=== PATIENT | male | born 1955 | race Caucasian/White ===

== ENCOUNTER 2019-07-08 14:24 | Emergency (ER) | payer SELFPAY ==
[2019-07-08 14:59] LABS: Absolute Lymphocytes (CBC) 1.7 K/uL (0.7-4.9); Basophils % 0.5 % (0-1.3); Hematocrit 34.1 % (39.6-49.0); Lymphocytes % 10.4 % (15.3-44.8); MPV 7.5 fL (7.6-11.3)
[2019-07-08 15:23] LABS: ALT/SGPT 53 U/L (12-78); AST/SGOT 141 U/L (15-37); Albumin 2.5 g/dL (3.4-5.0); Alkaline Phosphatase 218 U/L (45-117); BUN Blood Urea Nitrogen 9 mg/dL (7-18); Bicarbonate 23 mmol/L (21-32); Bilirubin Direct 1.5 mg/dL (0-0.2); Bilirubin Total 2.5 mg/dL (0.2-1.0); Glucose Level 99 mg/dL (74-106); Lipase 309 U/L (73-393); Potassium 3.6 mmol/L (3.5-5.1); Protein, Total 6.5 g/dL (6.4-8.2); Sodium Level 135 mmol/L (136-145)
[2019-07-08 15:25] LABS: Blood Morphology Comment NOT SEEN (NOT SEEN); Platelet Estimate ADEQ; Poikilocytosis 1+; Urine White Blood Cell Casts OK
--- NOTE | 2019-07-08 15:48 | RAD REPORT ---
EXAM DESCRIPTION: CTAbdomen Pelvis W Contrast - 07/08/2019 3:37 pm CLINICAL HISTORY: Abdominal pain. Diarrhea;Distention COMPARISON: No comparisons TECHNIQUE: Biphasic CT imaging of the abdomen and pelvis was performed with 100 ml non-ionic IV cont rast. All CT scans are performed using dose optimization technique as appropriate and may include automated exposure control or mA/KV adjustment according to patient size. FINDINGS: Small hiatal hernia.Linear atelectasis in both posterior lung bases. Diffuse fatty liver infiltration is seen with a diffusely heterogenous appearance to the liver parenc hyma. The low-density areas are seen throughout the liver parenchyma. No biliary dilatation evident. Mild ascites. The spleen, pancreas, adrenal glands kidneys are within normal limits. No bowel obstruction, free air or abscess. The appendix is normal. No evidence of significant lymph adenopathy. No suspicious bony findings. IMPRESSION: Diffuse fatty liver is present with a heterogenous appearance to the liver parenchyma wi th poorly defined low-density areas noted. Recommend nonemergent followup assessment of the liver wit h MRI liver protocol. Mild ascites.
[2019-07-08] MEDS ORDERED: NA CHLORIDE 0.9% 1,000 ML ONE ×2 (16:14→17:17)
--- NOTE | 2019-07-08 18:19 | ER ---
Nurse's Notes [facility] Name: Papa Del Castillo Age: 64 yrs Sex: Male : 1955 Arrival Date: 07/08/2019 Time: 14:28 Bed 26 Private MD: Diagnosis: Diarrhea, unspecified;Ascites;Fatty (change of) liver, not elsewhere classified Presentation: 07/08 14:31 Presenting complaint: Patient states: c/o diarrhea three to four weeks off and on with vc abdominal bloating. Transition of care: patient was not received from another setting of care. Onset of symptoms was June 07, 2019. Risk Assessment: Do you want to hurt yourself or someone else? Patient reports no desire to harm self or others. Initial Sepsis Screen: Does the patient meet any 2 criteria? No. Patient's initial sepsis screen is negative. Does the patient have a suspected source of infection? No. Patient's initial sepsis screen is negative. Care prior to arrival: None. 14:31 Method Of Arrival: Ambulatory vc 14:31 Acuity: FINA 3 vc Historical: - Allergies: 14:34 PENICILLINS; vc - Home Meds: 14:40 Unknown Appetite stimulant/antidepressant [Active]; aa5 - PMHx: 14:40 None; aa5 - PSHx: 14:40 None; aa5 - Immunization history:: Adult Immunizations up to date, Last tetanus immunization: up to date Pneumococcal vaccine is not up to date, Flu vaccine is up to date. - Social history:: Smoking status: Patient/guardian denies using tobacco. - Ebola Screening: : No symptoms or risks identified at this time. Screenin:09 Abuse screen: Denies threats or abuse. Denies injuries from another. Nutritional mg2 screening: No deficits noted. Tuberculosis screening: No symptoms or risk factors identified. Fall Risk IV access (20 points). Assessment: 15:07 General: Appears in no apparent distress. comfortable, Behavior is calm, cooperative. mg2 Pain: Complains of pain in abdomen Pain does not radiate. Pain currently is 1 out of 10 on a pain scale. Quality of pain is described as aching, Pain began gradually, 3-4 weeks ago. Neuro: Level of Consciousness is awake, alert, obeys commands, Oriented to person, place, time, situation. Cardiovascular: Capillary refill < 3 seconds Patient's skin is warm and dry. Respiratory: Airway is patent Respiratory effort is even, unlabored, Respiratory pattern is regular, symmetrical. GI: Abdomen is round distended, Bowel sounds present X 4 quads. Abd is soft Abd is non tender. GI: Reports diarrhea. : No signs and/or symptoms were reported regarding the genitourinary system. EENT: No signs and/or symptoms were reported regarding the EENT system. Derm: Skin is intact, is healthy with good turgor, Skin is pale. Musculoskeletal: Circulation, motion, and sensation intact. Capillary refill < 3 seconds. 16:52 Reassessment: Patient appears in no apparent distress at this time. Patient and/or mg2 family updated on plan of care and expected duration. Pain level reassessed. Patient is alert, oriented x 3, equal unlabored respirations, skin warm/dry/pink. 17:37 Reassessment: Patient appears in no apparent distress at this time. Patient is alert, mg2 oriented x 3, equal unlabored respirations, skin warm/dry/pink. 17:57 Reassessment: patient up for dc after completing iv fluid. mg2 Vital Signs: 14:36 BP 132 / 86; Pulse 115; Resp 18; Temp 98.5(TE); Pulse Ox 100% on R/A; Weight 63.5 kg; vc Height 5 ft. 10 in. (177.80 cm); Pain 0/10; 16:52 BP 145 / 79; Pulse 109; Resp 18; Pulse Ox 99% on R/A; mg2 17:37 BP 137 / 89; Pulse 110; Resp 18; Pulse Ox 100% on R/A; mg2 18:17 BP 132 / 76; Pulse 108; Resp 18; Temp 98; Pulse Ox 100% on R/A; Pain 0/10; mg2 14:36 Body Mass Index 20.09 (63.50 kg, 177.80 cm) vc ED Course: 14:28 Patient arrived in ED. mr 14:30 Arm band placed on. aa5 14:33 Triage completed. vc 14:58 Luis Santiago NP is PHCP. pm1 14:58 Nhan Gilbert MD is Attending Physician. pm1 15:04 Sridhar Medrano RN is Primary Nurse. mg2 15:10 Patient has correct armband on for positive identification. Pulse ox on. NIBP on. Door mg2 closed. 15:10 No provider procedures requiring assistance completed. Inserted saline lock: 20 gauge mg2 in right forearm, using aseptic technique. Blood collected. 15:11 Radiology exam delayed due to lab results not completed at this time. (BUN/Creatinine). vm2 15:22 Radiology exam delayed due to lab results not completed at this time. (BUN/Creatinine). 2 15:38 CT Abd/Pelvis - IV Contrast Only In Process Unspecified. EDMS 15:39 CT completed. Patient tolerated procedure well. Patient moved back from CT. vm2 17:29 Stool sample collected. jp3 17:30 Stool Culture Sent. jp3 17:30 Ova And Parasites Sent. jp3 17:30 Fecal Leukocyte Stain Sent. jp3 18:17 IV discontinued, intact, bleeding controlled, No redness/swelling at site. Pressure mg2 dressing applied. Administered Medications: 16:11 Drug: NS 0.9% 1000 ml Route: IV; Rate: 1000 ml; Site: right forearm; mg2 17:25 Follow up: Response: No adverse reaction; IV Status: Completed infusion; IV Intake: mg2 1000ml 17:25 Drug: NS 0.9% 1000 ml Route: IV; Rate: 1000 ml; Site: right forearm; mg2 18:16 Follow up: Response: No adverse reaction; IV Status: Completed infusion; IV Intake: mg2 1000ml Intake: 17:25 IV: 1000ml; Total: 1000ml. mg2 18:16 IV: 1000ml; Total: 2000ml. mg2 Outcome: 17:56 Discharge ordered by MD. pm1 18:17 Discharged to home ambulatory. mg2 18:17 Condition: stable 18:17 Discharge instructions given to patient, Instructed on discharge instructions, follow up and referral plans. Demonstrated understanding of instructions, follow-up care. 18:18 Patient left the ED. mg2 Signatures: Dispatcher [employer] EDMA Kim Davis ReynosoKaren shah RN RN aa5 Luis Santiago, PORTFOLIO ASSISTANT PORTFOLIO ASSISTANT pm1 Crystal Armstrong 2 Sridhar Medrano RN RN mg2 Pierre Hernandez jp3 Fabiola Urban RN RN vc
--- NOTE | 2019-07-08 18:20 | EDPHYS ---
Physician Documentation [facility] Name: Papa Del Castillo Age: 64 yrs Sex: Male : 1955 Arrival Date: 07/08/2019 Time: 14:28 Bed 26 Private MD: ED Physician Nhan Gilbert HPI: 07/08 15:04 This 64 yrs old Male presents to ER via Ambulatory with complaints of pm1 Abdominal Bloating and Diarrhea. 15:04 The patient presents with Abdominal bloating and on and off diarrhea for the past 4 pm1 weeks. Associated signs and symptoms: Pertinent positives: diarrhea, Pertinent negatives: nausea and vomiting, blood in stools, chest pain, dysuria, fever, shortness of breath. Modifying factors: The symptoms are alleviated by nothing, the symptoms are aggravated by nothing. Severity of pain: in the emergency department the pain is a 0 / 10. The patient has not recently seen a physician. Historical: - Allergies: 14:34 PENICILLINS; vc - Home Meds: 14:40 Unknown Appetite stimulant/antidepressant [Active]; aa5 - PMHx: 14:40 None; aa5 - PSHx: 14:40 None; aa5 - Immunization history:: Adult Immunizations up to date, Last tetanus immunization: up to date Pneumococcal vaccine is not up to date, Flu vaccine is up to date. - Social history:: Smoking status: Patient/guardian denies using tobacco. - Ebola Screening: : No symptoms or risks identified at this time. ROS: 15:04 Constitutional: Negative for fever, chills, and weight loss, Eyes: Negative for injury, pm1 pain, redness, and discharge, ENT: Negative for injury, pain, and discharge, Neck: Negative for injury, pain, and swelling, Cardiovascular: Negative for chest pain, palpitations, and edema, Respiratory: Negative for shortness of breath, cough, wheezing, and pleuritic chest pain. 15:04 Back: Negative for injury and pain, : Negative for injury, bleeding, discharge, and swelling, MS/Extremity: Negative for injury and deformity, Skin: Negative for injury, rash, and discoloration, Neuro: Negative for headache, weakness, numbness, tingling, and seizure. 15:04 Abdomen/GI: Positive for diarrhea, Negative for abdominal pain, nausea and vomiting, constipation, rectal pain, rectal bleeding. Exam: 15:04 Constitutional: This is a well developed, well nourished patient who is awake, alert, pm1 and in no acute distress. Head/Face: Normocephalic, atraumatic. Neck: Trachea midline, no thyromegaly or masses palpated, and no cervical lymphadenopathy. Supple, full range of motion without nuchal rigidity, or vertebral point tenderness. No Meningismus. Chest/axilla: Normal chest wall appearance and motion. Nontender with no deformity. No lesions are appreciated. Cardiovascular: Regular rate and rhythm with a normal S1 and S2. No gallops, murmurs, or rubs. Normal PMI, no JVD. No pulse deficits. Respiratory: Lungs have equal breath sounds bilaterally, clear to auscultation and percussion. No rales, rhonchi or wheezes noted. No increased work of breathing, no retractions or nasal flaring. 15:04 Back: No spinal tenderness. No costovertebral tenderness. Full range of motion. Skin: Warm, dry with normal turgor. Normal color with no rashes, no lesions, and no evidence of cellulitis. MS/ Extremity: Pulses equal, no cyanosis. Neurovascular intact. Full, normal range of motion. 15:04 Abdomen/GI: Inspection: distension, that is mild, Bowel sounds: normal, Palpation: abdomen is soft and non-tender, in all quadrants, mass, is not appreciated, rebound tenderness, is not appreciated. 15:04 Neuro: Orientation: is normal, Motor: is normal, moves all fours, Gait: is steady, at a normal pace, without difficulty. Vital Signs: 14:36 BP 132 / 86; Pulse 115; Resp 18; Temp 98.5(TE); Pulse Ox 100% on R/A; Weight 63.5 kg; vc Height 5 ft. 10 in. (177.80 cm); Pain 0/10; 16:52 BP 145 / 79; Pulse 109; Resp 18; Pulse Ox 99% on R/A; mg2 17:37 BP 137 / 89; Pulse 110; Resp 18; Pulse Ox 100% on R/A; mg2 18:17 BP 132 / 76; Pulse 108; Resp 18; Temp 98; Pulse Ox 100% on R/A; Pain 0/10; mg2 14:36 Body Mass Index 20.09 (63.50 kg, 177.80 cm) vc MDM: 14:58 Patient medically screened. pm1 17:41 Counseling: I had a detailed discussion with the patient and/or guardian regarding: the pm1 historical points, exam findings, and any diagnostic results supporting the discharge/admit diagnosis, lab results, radiology results, the need for outpatient follow up, a research program coordinator. 17:41 Special discussion: Based on the patient's Hx, exam, and Dx evaluation, there is no pm1 indication for emergent surgery or inpatient Tx. It is understood by the patient/guardian that if the Sx's persist or worsen they need to return immediately for re-evaluation. 17:41 Special discussion: Alcohol cessation due to laboratory findings and CT results: fatty pm1 liver and ascites. 17:41 ED course: Pending stool cultures, patient provided stool sample. Likely viral pm1 diarrhea. Will not provide antibiotic therapy until culture results reported. Recommended OTC probiotics to the patient. 17:44 Data reviewed: vital signs. Data interpreted: Pulse oximetry: on room air is 100 %. pm1 Interpretation: normal. 07/08 14:40 Order name: Basic Metabolic Panel; Complete Time: 15:58 mg2 07/08 14:40 Order name: CBC with Diff; Complete Time: 15:58 mg2 07/08 14:40 Order name: Creatinine for Radiology; Complete Time: 15:58 mg2 07/08 14:40 Order name: Hepatic Function; Complete Time: 15:58 mg2 07/08 14:40 Order name: Lipase; Complete Time: 15:58 mg2 07/08 15:04 Order name: CBC Smear Scan; Complete Time: 15:58 EDMS 07/08 14:40 Order name: IV Saline Lock; Complete Time: 15:06 mg2 07/08 14:40 Order name: Labs collected and sent; Complete Time: 15:06 mg2 07/08 15:07 Order name: CT Abd/Pelvis - IV Contrast Only; Complete Time: 15:58 pm1 07/08 15:07 Order name: Stool Culture pm1 07/08 15:07 Order name: Ova And Parasites pm1 07/08 15:07 Order name: Fecal Leukocyte Stain pm1 Administered Medications: 16:11 Drug: NS 0.9% 1000 ml Route: IV; Rate: 1000 ml; Site: right forearm; mg2 17:25 Follow up: Response: No adverse reaction; IV Status: Completed infusion; IV Intake: mg2 1000ml 17:25 Drug: NS 0.9% 1000 ml Route: IV; Rate: 1000 ml; Site: right forearm; mg2 18:16 Follow up: Response: No adverse reaction; IV Status: Completed infusion; IV Intake: mg2 1000ml Disposition: 07/09 07:23 Co-signature as Attending Physician, Nhan Gilbert MD. rn Disposition: 07/08/19 17:56 Discharged to Home. Impression: Diarrhea, unspecified, Ascites, Fatty (change of) liver, not elsewhere classified. - Condition is Stable. - Discharge Instructions: Ascites, Food Choices to Help Relieve Diarrhea, Adult, Diarrhea, Adult, Fatty Liver Disease Diet, Pediatric. - Medication Reconciliation Form, Thank You Letter, Antibiotic Education, Prescription Opioid Use form. - Follow up: Emergency Department; When: As needed; Reason: Worsening of condition. Follow up: Private Physician; When: 2 - 3 days; Reason: Recheck today's complaints, Continuance of care, Re-evaluation by your physician. - Problem is new. - Symptoms have improved. Signatures: Dispatcher [employer] EDNhan Holcomb MD MD rn Calderon, Audri, RN RN aa5 Luis Santiago CARNALLITE PLANT OPERATOR CARNALLITE PLANT OPERATOR pm1 Sridhar Medrano RN RN mg2 Fabiola Urban RN RN vc Corrections: (The following items were deleted from the chart) 07/08 18:18 17:56 07/08/2019 17:56 Discharged to Home. Impression: Diarrhea, unspecified; Ascites; mg2 Fatty (change of) liver, not elsewhere classified. Condition is Stable. Forms are Medication Reconciliation Form, Thank You Letter, Antibiotic Education, Prescription Opioid Use. Follow up: Emergency Department; When: As needed; Reason: Worsening of condition. Follow up: Private Physician; When: 2 - 3 days; Reason: Recheck today's complaints, Continuance of care, Re-evaluation by your physician. Problem is new. Symptoms have improved. pm1
[2019-07-08 22:57] VITALS: O2SAT 100
[2019-07-08 22:58] VITALS: BP 132/76; TEMP 98
== END 2019-07-08 18:18 | disposition home or self-care (01) ==
LOC: ER 14:24
DX: R18.8 Other ascites (principal); K76.0 Fatty (change of) liver, not elsewhere classified; Z88.0 Allergy status to penicillin
CPT/HCPCS: 36415; 74177; 80048; 80076; 83690; 85025; 87045; 87046; 87177; 87209; 89055; 96360; 96361; 99284; J7030; Q9967

== ENCOUNTER 2019-07-23 16:49 | Inpatient (IN) | payer SELFPAY ==
[2019-07-23 17:40] LABS: Absolute Lymphocytes (CBC) 1.6 K/uL (0.7-4.9); Basophils % 0.4 % (0-1.3); Hematocrit 38.8 % (39.6-49.0); Lymphocytes % 7.7 % (15.3-44.8); MPV 7.3 fL (7.6-11.3); RBC Red Blood Cell Count 3.68 M/uL (4.33-5.43)
[2019-07-23 17:42] LABS: Protime INR 1.52
--- NOTE | 2019-07-23 17:58 | RAD REPORT ---
EXAM DESCRIPTION: RAD - Chest Single View - 07/23/2019 5:27 pm CLINICAL HISTORY: Abdominal distention, shortness of breath, dyspnea COMPARISON: CT study July 08 TECHNIQUE: AP portable chest image was obtained 1721 hours . FINDINGS: Lung volumes are low. No peripheral mass or consolidation. Lung base atelectasis is presen t with small bilateral pleural effusions. Heart and vasculature are normal. No pneumothorax. No acute bony abnormality seen. No acute aortic findings suspected. IMPRESSION: Bilateral lung base pleural effusions and atelectasis.
[2019-07-23] MEDS ORDERED: CEFEPIME/SWI 2gm 2 GM/20 ML SYR IVP ONE (18:00)
[2019-07-23 18:04] LABS: ALT/SGPT 49 U/L (12-78); AST/SGOT 143 U/L (15-37); Albumin 2.3 g/dL (3.4-5.0); Alkaline Phosphatase 206 U/L (45-117); BUN Blood Urea Nitrogen 8 mg/dL (7-18); Bicarbonate 26 mmol/L (21-32); Bilirubin Direct 2.3 mg/dL (0-0.2); Bilirubin Total 3.6 mg/dL (0.2-1.0); Glucose Level 118 mg/dL (74-106); Lipase 251 U/L (73-393); Magnesium 2.3 mg/dL (1.8-2.4); NT PRO-BNP 216 pg/mL (<125); Potassium 4.5 mmol/L (3.5-5.1); Protein, Total 6.5 g/dL (6.4-8.2); Sodium Level 133 mmol/L (136-145); Troponin (Emerg Dept Use Only) < 0.02 ng/mL (0.0-0.045)
[2019-07-23 18:10] LABS: Anisocytosis 1+; Blood Morphology Comment NOTED (NOT SEEN); Platelet Estimate ADEQ; Poikilocytosis 1+; Urine White Blood Cell Casts OK
[2019-07-23] MEDS ORDERED: FENTANYL CITR 100 MCG/2 ML ONE (18:28)
--- NOTE | 2019-07-23 18:59 | RAD REPORT ---
EXAM DESCRIPTION: CT - Abdomen Pelvis W Contrast - 07/23/2019 6:29 pm CLINICAL HISTORY: Abd pain;Abdominal distention COMPARISON: CT study July TECHNIQUE: Biphasic, helical CT imaging of the abdomen and pelvis was performed following 100 ml non -ionic IV contrast. No oral contrast given. All CT scans are performed using dose optimization technique as appropriate and may include automated exposure control or mA/KV adjustment according to patient size. FINDINGS: Small to moderate bilateral pleural effusions are present only partially imaged. Partial a telectasis present in each lower lobe. No pericardial thickening or effusion. Nodularity of the liver capsule is present. No focal liver lesion identifiable. There is some heterog eneity to the liver parenchymal enhancement pattern. This is not as pronounced is seen on the Dece study. No portal thrombus. Spleen is normal size. No pancreatic or peripancreatic abnormality. No acute gallbladder or biliary tree finding. Symmetric renal function is seen with no hydronephrosis or suspicious renal mass. No pyelonephritis o r acute parenchymal process. No bladder abnormalities. No adrenal abnormalities. No dilated bowel loops or bowel wall thickening. Small hiatal hernia present. Diverticulosis is prese nt without diverticulitis. No free air or pneumatosis. Large volume of ascites present. Volume has i ncreased since the July 08 imaging. No omental thickening. No suspicious bony findings. IMPRESSION: Cirrhosis or other diffuse hepatic parenchymal disease is evident. Enhancement is somew hat heterogeneous but not as pronounced as seen previously. No definitive focal lesion. Large volume of ascites increased from July 08 imaging. Small to moderate bilateral pleural effusions only partially imaged. Partial atelectasis present in e ach lower lobe. Pleural fluid is new from July 08. No acute GI or finding.
--- NOTE | 2019-07-23 19:31 | ER ---
Nurse's Notes [facility] Name: Papa Del Castillo Age: 64 yrs Sex: Male : 1955 Arrival Date: 07/23/2019 Time: 16:51 Bed 24 Private MD: Diagnosis: Alcoholic cirrhosis of liver;Pleural effusion in other conditions classified elsewhere;Elevated white blood cell count;Ascites Presentation: 07/23 17:03 Acuity: FINA 3 ss 17:03 Presenting complaint: Patient states: was seen here several weeks ago for ABD swelling em but reports it has got much worse, denies N/V/D or fever, reports shortness of breath, distended ABD noted. Transition of care: patient was not received from another setting of care. Onset of symptoms was July 23, 2019. Risk Assessment: Do you want to hurt yourself or someone else? Patient reports no desire to harm self or others. Initial Sepsis Screen: Does the patient meet any 2 criteria? HR > 90 bpm. No. Patient's initial sepsis screen is negative. Does the patient have a suspected source of infection? No. Patient's initial sepsis screen is negative. Care prior to arrival: None. 17:03 Method Of Arrival: Ambulatory em Historical: - Allergies: 17:06 PENICILLINS; em - Home Meds: 17:06 Unknown Appetite stimulant/antidepressant [Active]; em - PMHx: 17:06 fatty liver; em - PSHx: 17:06 None; em - Immunization history:: Adult Immunizations up to date. - Social history:: Smoking status: Patient/guardian denies using tobacco. - Ebola Screening: : Patient negative for fever greater than or equal to 101.5 degrees Fahrenheit, and additional compatible Ebola Virus Disease symptoms Patient denies exposure to infectious person Patient denies travel to an Ebola-affected area in the 21 days before illness onset No symptoms or risks identified at this time. Screenin:07 Abuse screen: Denies threats or abuse. Nutritional screening: No deficits noted. em Tuberculosis screening: No symptoms or risk factors identified. Fall Risk None identified. Assessment: 17:06 General: Appears in no apparent distress. uncomfortable, ill, malnourished. Pain: em Complains of pain in left lower quadrant Pain currently is 10 out of 10 on a pain scale. Pain began 2 weeks ago. Neuro: Level of Consciousness is awake, alert, obeys commands, Oriented to person, place, time, situation, Appropriate for age. Cardiovascular: Denies chest pain, vomiting, Capillary refill < 3 seconds. Respiratory: Reports shortness of breath at rest Airway is patent Respiratory effort is even, unlabored, Respiratory pattern is regular, symmetrical. GI: Abdomen is distended, noted to have ascites, Bowel sounds present X 4 quads. Abd is rigid X 4 quads. Patient currently denies diarrhea, nausea, vomiting. EENT: Sclera/Cornea mild jaundice noted. Derm: Skin is intact, Skin is dry, Skin is pale, Skin temperature is warm. Musculoskeletal: Capillary refill < 3 seconds, Range of motion: intact in all extremities. 17:15 General: The previous assessment is accurate, call light remains within reach.. ss 18:20 Reassessment: Patient appears in no apparent distress at this time. Patient and/or em family updated on plan of care and expected duration. Pain level reassessed. request something for pain, rates pain 10/10. 19:07 Reassessment: Patient appears in no apparent distress at this time. Patient and/or em family updated on plan of care and expected duration. Pain level reassessed. Patient is alert, oriented x 3, equal unlabored respirations, skin warm/dry/pink. rates pain 2/10. 19:15 General: Appears in no apparent distress. Pain: Denies pain. Neuro: Level of ea Consciousness is awake, alert, obeys commands, Oriented to person, place, time, situation. Cardiovascular: Patient's skin is warm and dry. Respiratory: Airway is patent Respiratory effort is even, unlabored, Respiratory pattern is regular, symmetrical. GI: Abdomen is distended, noted to have ascites. Derm: Skin is intact, Skin is dry, Skin is pale, Skin temperature is warm. Musculoskeletal: Circulation, motion, and sensation intact. 20:30 Reassessment: Patient and/or family updated on plan of care and expected duration. Pain ea level reassessed. Respirations even and unlabored, chest expansions even and unlabored. Pt denies pain at this time. 21:26 Reassessment: Patient and/or family updated on plan of care and expected duration. Pain ea level reassessed. Report called to receiving nurse on second floor. 21:47 Reassessment: Patient and/or family updated on plan of care and expected duration. Pain ea level reassessed. Pt alert and oriented x 3. Respirations even and unlabored. Chest expansions even and symmetrical. No s/s of pain or discomfort at this time. Pt admitted to second floor, left ED via wheelchair per tech, pt tolerating well. Vital Signs: 17:06 BP 142 / 84; Pulse 116; Resp 20; Temp 97.8(O); Pulse Ox 98% on R/A; Weight 63.5 kg; em Height 5 ft. 10 in. (177.80 cm); Pain 10/10; 18:11 BP 127 / 76; Pulse 109; Resp 16; Pulse Ox 98% on R/A; em 19:00 BP 139 / 90; Pulse 108; Resp 19; Pulse Ox 97% on R/A; ea 20:30 BP 129 / 77; Pulse 108; Resp 18; Pulse Ox 96% on R/A; ea 21:30 BP 125 / 88; Pulse 107; Resp 18; Temp 98; Pulse Ox 97% ; ea 17:06 Body Mass Index 20.09 (63.50 kg, 177.80 cm) em ED Course: 16:51 Patient arrived in ED. am2 16:55 Joe Ricardo LVN is Primary Nurse. em 17:03 Triage completed. 17:06 Arm band placed on. em 17:07 Patient has correct armband on for positive identification. Placed in gown. Bed in low em position. Call light in reach. Side rails up X2. Pulse ox on. NIBP on. 17:09 Leonel Roa PA is PHCP. jr8 17:09 Margarito Gupta MD is Attending Physician. jr8 17:18 EKG done, by ED staff, reviewed by Leonel BEARD. em 17:30 Initial lab(s) drawn, by pr, sent to lab. Inserted saline lock: 22 gauge in right em forearm, using aseptic technique. Blood collected. 19:29 Margarito Kaye MD is Hospitalizing Provider. jr8 21:26 No provider procedures requiring assistance completed. Patient admitted, IV remains in ea place. Administered Medications: 18:17 Drug: Cefepime 2 grams Route: IVPB; Rate: 200 ml/hr; Infused Over: 30 mins; Site: right ss forearm; 19:11 Follow up: Response: No adverse reaction; IV Status: Completed infusion em 18:38 Drug: fentaNYL (PF) 50 mcg Route: IVP; Site: right forearm; ss 19:05 Follow up: Response: No adverse reaction; Pain is decreased; RASS: Alert and Calm (0) em Outcome: 19:29 Decision to Hospitalize by Provider. jrJessy 20:00 Instructed on the need for admit. ea 21:40 Admitted to Med/surg accompanied by tech, room 224, with chart, Report called to dyan Escalona RN on second floor 21:40 Condition: stable 21:48 Patient left the ED. ea Signatures: Joe Ricardo, WINDOWS SERVER SPECIALIST WINDOWS SERVER SPECIALIST em Sudha Smith RN RN Leonel Roa PA PA jr8 Jessica Porter Elena RN SUZY zaidi Corrections: (The following items were deleted from the chart) 17:57 17:03 Initial Sepsis Screen: Does the patient meet any 2 criteria? HR > 90 bpm. No. ss Patient's initial sepsis screen is negative. Does the patient have a suspected source of infection? No. Patient's initial sepsis screen is negative. em
--- NOTE | 2019-07-23 19:31 | EDPHYS ---
Physician Documentation [facility] Name: Papa Del Castillo Age: 64 yrs Sex: Male : 1955 Arrival Date: 07/23/2019 Time: 16:51 Bed 24 Private MD: ED Physician Margarito Gupta HPI: 07/23 17:29 This 64 yrs old Male presents to ER via Ambulatory with complaints of jr8 Abdominal Distention, Shortness Of Breath. 17:29 Onset: The symptoms/episode began/occurred gradually, 1 week(s) ago. The symptoms do jr8 not radiate. Associated signs and symptoms: Pertinent positives: shortness of breath. The symptoms are described as dull. Modifying factors: The symptoms are alleviated by nothing, the symptoms are aggravated by nothing. Severity of pain: At its worst the pain was moderate in the emergency department the pain is unchanged. The patient has experienced a previous episode. The patient has not recently seen a physician. 17:49 Patient with longstanding drinking history. Stated that he has been seen in ED once jr8 before for ascites but was d/c'd from ER. Stated that he was not officially diagnosed with cirrhosis of the liver at that time. Stated that it did not look bad enough. Came back today for distension of abdomen with shortness of breath. Historical: - Allergies: 17:06 PENICILLINS; em - Home Meds: 17:06 Unknown Appetite stimulant/antidepressant [Active]; em - PMHx: 17:06 fatty liver; em - PSHx: 17:06 None; em - Immunization history:: Adult Immunizations up to date. - Social history:: Smoking status: Patient/guardian denies using tobacco. - Ebola Screening: : Patient negative for fever greater than or equal to 101.5 degrees Fahrenheit, and additional compatible Ebola Virus Disease symptoms Patient denies exposure to infectious person Patient denies travel to an Ebola-affected area in the 21 days before illness onset No symptoms or risks identified at this time. ROS: 17:49 Eyes: Negative for injury, pain, redness, and discharge, ENT: Negative for injury, jr8 pain, and discharge, Neck: Negative for injury, pain, and swelling, Cardiovascular: Negative for chest pain, palpitations, and edema, Back: Negative for injury and pain, MS/Extremity: Negative for injury and deformity, Skin: Negative for injury, rash, and discoloration, Neuro: Negative for headache, weakness, numbness, tingling, and seizure. 17:49 Respiratory: Positive for shortness of breath. 17:49 Abdomen/GI: Positive for abdominal pain, abdominal distension. Exam: 17:49 Eyes: Pupils equal round and reactive to light, extra-ocular motions intact. Lids and jr8 lashes normal. Conjunctiva and sclera are non-icteric and not injected. Cornea within normal limits. Periorbital areas with no swelling, redness, or edema. ENT: Nares patent. No nasal discharge, no septal abnormalities noted. Tympanic membranes are normal and external auditory canals are clear. Oropharynx with no redness, swelling, or masses, exudates, or evidence of obstruction, uvula midline. Mucous membranes moist. Neck: Trachea midline, no thyromegaly or masses palpated, and no cervical lymphadenopathy. Supple, full range of motion without nuchal rigidity, or vertebral point tenderness. No Meningismus. Respiratory: Lungs have equal breath sounds bilaterally, clear to auscultation and percussion. No rales, rhonchi or wheezes noted. No increased work of breathing, no retractions or nasal flaring. Back: No spinal tenderness. No costovertebral tenderness. Full range of motion. Skin: Warm, dry with normal turgor. Normal color with no rashes, no lesions, and no evidence of cellulitis. MS/ Extremity: Pulses equal, no cyanosis. Neurovascular intact. Full, normal range of motion. Neuro: Awake and alert, GCS 15, oriented to person, place, time, and situation. Cranial nerves II-XII grossly intact. Motor strength 5/5 in all extremities. Sensory grossly intact. Cerebellar exam normal. Normal gait. 17:49 Cardiovascular: Rate: tachycardic, Rhythm: regular, Pulses: Pulses are 2+ in right radial artery and left radial artery. Heart sounds: normal, normal S1and S2, no S3 or S4, no murmur, no rub, no gallop, Edema: 1+ edema to level of left midcalf, left ankle, right midcalf and right ankle, JVD: is not appreciated. 17:49 Abdomen/GI: Inspection: distension, that is moderate, Bowel sounds: active, Palpation: soft, in all quadrants, nontender, in all quadrants. Vital Signs: 17:06 BP 142 / 84; Pulse 116; Resp 20; Temp 97.8(O); Pulse Ox 98% on R/A; Weight 63.5 kg; em Height 5 ft. 10 in. (177.80 cm); Pain 10/10; 18:11 BP 127 / 76; Pulse 109; Resp 16; Pulse Ox 98% on R/A; em 19:00 BP 139 / 90; Pulse 108; Resp 19; Pulse Ox 97% on R/A; ea 20:30 BP 129 / 77; Pulse 108; Resp 18; Pulse Ox 96% on R/A; ea 21:30 BP 125 / 88; Pulse 107; Resp 18; Temp 98; Pulse Ox 97% ; ea 17:06 Body Mass Index 20.09 (63.50 kg, 177.80 cm) em MDM: 17:15 Patient medically screened. [facility] 19:28 Data reviewed: vital signs, nurses notes, lab test result(s), EKG, radiologic studies, [facility] CT scan, plain films. Data interpreted: Pulse oximetry: on room air is 96 %. Interpretation: acceptable. Counseling: I had a detailed discussion with the patient and/or guardian regarding: the historical points, exam findings, and any diagnostic results supporting the discharge/admit diagnosis, lab results, radiology results, the need for further work-up and treatment in the hospital. Physician consultation: Margarito Kaye MD was called at 19:28, was contacted at 19:28, regarding admission, and will see patient. 07/23 17:09 Order name: Basic Metabolic Panel [facility] 07/23 17:09 Order name: CBC with Diff [facility] 07/23 17:09 Order name: LFT's [facility] 07/23 17:09 Order name: Magnesium [facility] 07/23 17:09 Order name: NT PRO-BNP [facility] 07/23 17:09 Order name: PT-INR [facility] 07/23 17:09 Order name: Troponin (emerg Dept Use Only) [facility] 07/23 17:09 Order name: AMMONIA [facility] 07/23 17:09 Order name: Lipase [facility] 07/23 17:45 Order name: Protime (+INR); Complete Time: 17:48 EDMS 07/23 17:46 Order name: CBC with Automated Diff; Complete Time: 18:14 EDMS 07/23 17:48 Order name: Blood Culture Adult (2) [facility] 07/23 17:48 Order name: Procalcitonin [facility] 07/23 17:48 Order name: Lactate [facility] 07/23 17:09 Order name: XRAY Chest (1 view) [facility] 07/23 17:56 Order name: Ammonia; Complete Time: 17:59 EDMS 07/23 18:01 Order name: RAD; Complete Time: 18:05 EDMS 07/23 18:05 Order name: Basic Metabolic Panel; Complete Time: 18:05 EDMS 07/23 18:05 Order name: Liver (Hepatic) Function; Complete Time: 18:05 EDMS 07/23 18:05 Order name: Troponin (Emerg Dept Use Only); Complete Time: 18:05 EDMS 07/23 18:05 Order name: NT PRO-BNP; Complete Time: 18:05 EDMS 07/23 18:05 Order name: Magnesium; Complete Time: 18:05 EDMS 07/23 18:05 Order name: Lipase; Complete Time: 18:05 EDMS 07/23 18:06 Order name: CT Abd/Pelvis - IV Contrast Only [facility] 07/23 18:12 Order name: CBC Smear Scan; Complete Time: 18:14 EDMS 07/23 18:37 Order name: Lactate; Complete Time: 18:43 EDMS 07/23 19:04 Order name: CT; Complete Time: 19:05 EDMS 07/23 19:30 Order name: Procalcitonin; Complete Time: 19:31 EDMS 07/23 17:09 Order name: EKG; Complete Time: 17:10 [facility] 07/23 17:09 Order name: Cardiac monitoring; Complete Time: 17:22 [facility] 07/23 17:09 Order name: EKG - Nurse/Tech; Complete Time: 17:22 [facility] 07/23 17:09 Order name: IV Saline Lock; Complete Time: 17:34 [facility] 07/23 17:09 Order name: Labs collected and sent; Complete Time: 17:34 [facility] 07/23 17:09 Order name: O2 Per Protocol; Complete Time: 17:22 [facility] 07/23 17:09 Order name: O2 Sat Monitoring; Complete Time: 17:22 [facility] Administered Medications: 18:17 Drug: Cefepime 2 grams Route: IVPB; Rate: 200 ml/hr; Infused Over: 30 mins; Site: right ss forearm; 19:11 Follow up: Response: No adverse reaction; IV Status: Completed infusion em 18:38 Drug: fentaNYL (PF) 50 mcg Route: IVP; Site: right forearm; ss 19:05 Follow up: Response: No adverse reaction; Pain is decreased; RASS: Alert and Calm (0) em Disposition: 07/23/19 19:29 Hospitalization ordered by Margarito Kaye for Inpatient Admission. Preliminary diagnosis are Alcoholic cirrhosis of liver, Pleural effusion in other conditions classified elsewhere, Elevated white blood cell count, Ascites. - Bed requested for Telemetry/MedSurg (Inpatient). - Status is Inpatient Admission. ea - Condition is Stable. - Problem is new. - Symptoms are unchanged. UTI on Admission? No Addendum: 07/27/2019 07:10 Co-signature as Attending Physician, Margarito Gupta MD. m a2 Signatures: Dispatcher [employer] EDTN Joe Ricardo, GARMENT SEWING MACHINE OPERATOR GARMENT SEWING MACHINE OPERATOR em Sudha Smith RN RN Leonel Roa PA PA jr8 Nayeli Caal RN RN Margarito Gupta MD MD ma2 Ryan Nesbitt RN RN rv Corrections: (The following items were deleted from the chart) 07/23 20:28 19:29 Hospitalization Ordered by Margarito Kaye MD for Inpatient Admission. Preliminary rv diagnosis is Alcoholic cirrhosis of liver; Pleural effusion in other conditions classified elsewhere; Elevated white blood cell count; Ascites. Bed requested for Telemetry/MedSurg (Inpatient). Status is Inpatient Admission. Condition is Stable. Problem is new. Symptoms are unchanged. UTI on Admission? No. jr8 21:48 20:28 07/23/2019 19:29 Hospitalization Ordered by Margarito Kaye MD for Inpatient ea Admission. Preliminary diagnosis is Alcoholic cirrhosis of liver; Pleural effusion in other conditions classified elsewhere; Elevated white blood cell count; Ascites. Bed requested for Telemetry/MedSurg (Inpatient). Status is Inpatient Admission. Condition is Stable. Problem is new. Symptoms are unchanged. UTI on Admission? No. rv
[2019-07-23] MEDS ORDERED: MAGNESIUM HYDROXIDE 8% 30 ML PO PRN (20:15)
[2019-07-23] MEDS ORDERED: ONDANSETRON 4 MG/2 ML VIAL IV PRN (20:15)
[2019-07-23 22:14] VITALS: O2SAT 95; BMI 21.8
[2019-07-23] MEDS ORDERED: MORPHINE 4 MG/ML SYR IV PRN (22:33)
[2019-07-23 22:58] LABS: Urine Appearance CLEAR; Urine Blood NEGATIVE (NEG); Urine Color DK YELLOW; Urine Glucose NEGATIVE (NEG); Urine Protein TRACE (NEG); Urine Specific Gravity >=1.030 (1.005-1.030); Urine pH 6.5 (5.0-7.0)
[2019-07-23 23:02] LABS: Urine Microscopic Reflex ORDER UMIC
[2019-07-23 23:06] LABS: Urine Bilirubin NEGATIVE (NEG)
[2019-07-24 01:19] LABS: Urine Bacteria <20 /HPF (NONE SEEN); Urine Culture Reflex Order NOT NEEDED; Urine RBC <5 /HPF (NONE SEEN)
[2019-07-24 05:35] LABS: Basophils % 0.6 % (0-1.3); Hematocrit 33.4 % (39.6-49.0); Lymphocytes % 6.5 % (15.3-44.8); MPV 7.2 fL (7.6-11.3); RBC Red Blood Cell Count 3.17 M/uL (4.33-5.43)
[2019-07-24 05:42] LABS: Protime INR 1.57
[2019-07-24 05:52] LABS: ALT/SGPT 44 U/L (12-78); AST/SGOT 120 U/L (15-37); Alkaline Phosphatase 171 U/L (45-117); BUN Blood Urea Nitrogen 8 mg/dL (7-18); Bicarbonate 27 mmol/L (21-32); Bilirubin Total 2.9 mg/dL (0.2-1.0); Glucose Level 111 mg/dL (74-106); Magnesium 2.2 mg/dL (1.8-2.4); Phosphorus 3.4 mg/dL (2.5-4.9); Potassium 4.4 mmol/L (3.5-5.1); Protein, Total 5.4 g/dL (6.4-8.2); Sodium Level 135 mmol/L (136-145)
--- NOTE | 2019-07-24 07:52 | EKG ---
Test Date: 2019-07-23 Test Time: 17:18:23 Woven Paper Hat Mender: SHAHNAZ MEASUREMENT RESULTS: Intervals: Rate: 110 TN: 130 QRSD: 68 QT: 320 QTc: 433 [place]: P: 23 TN: 130 QRS: 0 T: 10 INTERPRETIVE STATEMENTS: Sinus tachycardia Cannot rule out Anterior infarct, age undetermined Low voltage QRS Abnormal ECG No previous ECG available for comparison Electronically Signed On 07-24-19 07:51:47 INFORMATION SECURITY ANALYST by Yossi Diop
--- NOTE | 2019-07-24 08:22 | P.HP ---
Certification for Inpatient Patient admitted to: Inpatient With expected LOS: >2 Midnights Patient will require the following post-hospital care: None Practitioner: I am a practitioner with admitting privileges, knowledge of patient current condition, hospital course, and medical plan of care. Services: Services provided to patient in accordance with Admission requirements found in Title 42 Section 412.3 of the Code of Federal Regulations Patient History Date of Service: 07/24/19 Reason for admission: LARGE AMOUNT OF ASCITES; CIRRHOSIS SECONDARY TO ALCOHOL ABUSE History of Present Illness: Patient is a 64-year-old gentleman who came into the hospital with abdominal distention. He was in the ER in early July with similar complaints. He was told he would need to 2 follow-up as an outpatient with a liver specialist and to stop drinking. He has not had anything to drink since that time. He also has been drinking plenty of water per recommendation from the ER physician. He noted that his abdomen was starting to distended. He was able to take it any more after 2 weeks of abdominal distention so he came into the ER for further evaluation. In the emergency room patient does have a large amount of ascites. He will need a paracentesis. Will send labs to further evaluate the etiology. Patient will be admitted to the hospital for further workup. Allergies Penicillins Allergy (Verified 07/23/19 22:14) Shortness of breath - Past Medical/Surgical History Has patient received pneumonia vaccine in the past: Yes Diabetic: No -: fatty liver -: alcoholic liver cirrhosis Past Surgical History: Patient denies surgical history - Family History Father Family History: Reviewed- Non-Contributory - Social History Smoking Status: Never smoker Alcohol use: No CD- Drugs: No Caffeine use: No Place of Residence: Home Review of Systems 10-point ROS is otherwise unremarkable Physical Examination - Vital Signs Temperature: 97.9 F Blood Pressure: 131/78 Pulse: 104 Respirations: 18 Pulse Ox (%): 96 - Physical Exam General: Alert, In no apparent distress, Oriented x3 HEENT: Atraumatic, PERRLA, Mucous membr. moist/pink, EOMI, Sclerae nonicteric Neck: Supple, 2+ carotid pulse no bruit, No LAD, Without JVD or thyroid abnormality Respiratory: Clear to auscultation bilaterally, Normal air movement Cardiovascular: Regular rate/rhythm, Normal S1 S2 Gastrointestinal: Normal bowel sounds, Soft and benign, No tenderness, No rebound, No guarding, Distended Musculoskeletal: No clubbing, No swelling, No tenderness Integumentary: Tenderness/swelling Neurological: Normal gait, Normal speech, Normal strength at 5/5 x4 extr, Normal tone, Sensation intact, Cranial nerves 3-12 intact, Normal affect Lymphatics: No axilla or inguinal lymphadenopathy - Studies Laboratory Data (last 24 hrs) 07/24/19 05:17: Sodium 135 L, Potassium 4.4, BUN 8, Creatinine 0.45 L, Glucose 111 H, Phosphorus 3.4, Magnesium 2.2, Total Bilirubin 2.9 H, AST 120 H, ALT 44, Alkaline Phosphatase 171 H 07/24/19 05:17: PT 18.2 H, INR 1.57, APTT 34.7 07/24/19 05:17: WBC 15.6 H D, Hgb 11.6 L, Hct 33.4 L, Plt Count 213 D 07/23/19 17:30: PT 17.7 H, INR 1.52 07/23/19 17:30: WBC 20.2 H*, Hgb 13.3 L, Hct 38.8 L, Plt Count 301 07/23/19 17:30: Sodium 133 L, Potassium 4.5, BUN 8, Creatinine 0.57, Glucose 118 H, Magnesium 2.3, Total Bilirubin 3.6 H, AST 143 H, ALT 49, Alkaline Phosphatase 206 H, Lipase 251 Assessment & Plan - Problems (Diagnosis) (1) Ascites due to chronic alcoholic hepatitis Current Visit: Yes Status: Acute (2) Alcoholic liver disease Current Visit: Yes Status: Acute - Plan Plan: 1. Hep-Lock IV 2. Lasix and Aldactone 3. Beta-mohan therapy 4. GI consultation 5. Acute hepatitis profile 6. Check ammonia level 7. Continue to refrain from alcohol use 8. GI and DVT prophylaxis Discharge Plan: Home Plan to discharge in: Greater than 2 days - Advance Directives Does patient have a Living Will: No Does patient have a Durable POA for Healthcare: No - Code Status/Comfort Care Code Status Assessed: Yes Code Status: Full Code Critical Care: No Time Spent Managing PTS Care (In Minutes): 45
--- NOTE | 2019-07-24 10:30 | RAD REPORT ---
EXAM DESCRIPTION: US - Paracentesis Proc Guidance - 07/24/2019 10:01 am CLINICAL HISTORY: large ascites Ascites COMPARISON: No comparisons FINDINGS: Informed consent was obtained and time-out was performed. Patient's abdomen was prepped and draped in the usual sterile fashion. 1% lidocaine was used for loca l anesthetic purposes. A small skin incision was made right lower quadrant. A paracentesis catheter was guided into the [place] cavity under sonographic guidance. A small amount of fluid was sent for requested lab studies. A large volume paracentesis was performed . 5 liters of yellow fluid was obtained. The patient tolerated the procedure well. IMPRESSION: Successful ultrasound-guided paracentesis.
[2019-07-24 12:02] LABS: Appearance CLEAR (CLEAR); Body Fluid Source PERITONEAL; Body Fluid WBC 53 /mm^3; Color of fluid Yellow (COLORLESS)
[2019-07-24] MEDS ORDERED: FUROSEMIDE 40 MG TABLET PO SCH (15:00)
[2019-07-24] MEDS ORDERED: ALBUMIN HUMAN 25% 200 ML IV ONE (15:00)
[2019-07-24 16:25] VITALS: BP 124/66; TEMP 97.8
--- NOTE | 2019-07-24 16:46 | P.SSS ---
Patient History Date of Service: 07/24/19 Reason for admission: LARGE AMOUNT OF ASCITES; CIRRHOSIS SECONDARY TO ALCOHOL ABUSE History of Present Illness: 64-year-old gentleman with a known history of alcoholic liver disease, diagnosed about 3 months ago presents the to the with a complaint of abdominal distention. He has not established care with a new primary care physician. He was in the emergency department about [address] abdomen and pelvis demonstrated fatty liver. Patient abdomen was noted to be quite distended. Repeat CT abdomen and pelvis report heterogeneously liver suggestive of diffuse hepatic disease versus alcohol liver cirrhosis. Patient was then hospitalized for paracentesis and further evaluation. Allergies Penicillins Allergy (Verified 07/23/19 22:14) Shortness of breath Home Medications: Furosemide [Lasix*] 40 mg PO DAILY #30 tab 07/24/19 Mirtazapine [Remeron*] 15 mg PO BEDTIME #30 tab 07/24/19 Spironolactone [Aldactone*] 100 mg PO DAILY #30 tab 07/24/19 - Past Medical/Surgical History Has patient received pneumonia vaccine in the past: Yes Diabetic: No -: fatty liver -: alcoholic liver cirrhosis - Social History Smoking Status: Never smoker Alcohol use: No CD- Drugs: No Caffeine use: No Place of Residence: Home Review of Systems Other: General: No fever, no malaise. Eyes: No eye discharge, Respiratory: No cough, no shortness of breath. CVS: No chest pain, no palpitation, no lightheadedness. GI: No nausea no vomit, no constipation, no diarrhea. Genitourinary: No dysuria, no urinary frequency, no incontinence, no hematuria. Musculoskeletal: No joint pains, or joint swelling, no gait instability. Neurology: No headache, no asymmetric, weakness, no problem with swallowing. Except as documented, all other systems reviewed and negative. Physical Examination - Vital Signs Temperature: 97.8 F Blood Pressure: 124/66 Pulse: 106 Respirations: 18 Pulse Ox (%): 97 - Physical Exam General: Alert, In no apparent distress, Cachectic HEENT: PERRLA, Mucous membr. moist/pink, Sclerae nonicteric Neck: Supple, JVD not distended Respiratory: Clear to auscultation bilaterally, Normal air movement Cardiovascular: No edema, Regular rate/rhythm, Normal S1 S2 Gastrointestinal: Normal bowel sounds, Soft and benign, No tenderness, Distended Musculoskeletal: No swelling Integumentary: No rashes Neurological: Normal speech, Normal strength at 5/5 x4 extr - Studies Laboratory Data (last 24 hrs) 07/24/19 05:17: Sodium 135 L, Potassium 4.4, BUN 8, Creatinine 0.45 L, Glucose 111 H, Phosphorus 3.4, Magnesium 2.2, Total Bilirubin 2.9 H, AST 120 H, ALT 44, Alkaline Phosphatase 171 H 07/24/19 05:17: PT 18.2 H, INR 1.57, APTT 34.7 07/24/19 05:17: WBC 15.6 H D, Hgb 11.6 L, Hct 33.4 L, Plt Count 213 D 07/23/19 17:30: PT 17.7 H, INR 1.52 07/23/19 17:30: WBC 20.2 H*, Hgb 13.3 L, Hct 38.8 L, Plt Count 301 07/23/19 17:30: Sodium 133 L, Potassium 4.5, BUN 8, Creatinine 0.57, Glucose 118 H, Magnesium 2.3, Total Bilirubin 3.6 H, AST 143 H, ALT 49, Alkaline Phosphatase 206 H, Lipase 251 Treatment Summary: Paracentesis was performed. About 5 L of clear ascitic fluid was drained. Cell count was unremarkable. Ascitic fluid culture is pending. Patient was placed on oral Lasix and oral Aldactone. Hepatitis profile obtained and results are pending. His vitals are stable after the paracentesis. Patient is deemed clinically stable for discharge. He is advised to find a PCP to coordinate his care. He will also need referral to Gastroenterology for further management of his liver disease. Patient has been provided information regarding discounted and free clinics in the local area to utilize. His is given prescriptions for Lasix and Aldactone. - Disposition Disposition: ROUTINE DISCHARGE Condition: FAIR Diet: Regular Activity: Ad andrez Time Spent Managing Pts Care (In Minutes): 52
[2019-07-24] MEDS ORDERED: PROMOD 30 ML DOSE PO SCH (21:00)
[2019-07-25] MEDS ORDERED: SPIRONOLACTONE 100 MG TAB PO SCH (09:00)
== END 2019-07-24 17:25 | disposition home or self-care (01) | DRG 434 ==
LOC: ER 16:49 → ERHOLD 20:16 → 2ND 21:28 → OBSVTOIN 07-24 07:56
PROVIDERS: ADMIT Hospitalist; ATTEND Internal Medicine
PROC: 0W9G3ZZ Drainage of Peritoneal Cavity, Percutaneous Approach (ICD-10-PCS; principal; 2019-07-24)
DX: K70.31 Alcoholic cirrhosis of liver with ascites (principal); K70.0 Alcoholic fatty liver
CPT/HCPCS: 36415; 49083; 71045; 74177; 80048; 80053; 80076; 81003; 81015; 82140; 83605; 83690; 83735; 83880; 84100; 84145; 84484; 85025; 85610; 85730; 87040; 87070; 88108; 88305; 89050; 93005; 96365; 96375; 99285; G0378; J0692; J3010; P9047; Q9967

== ENCOUNTER 2019-07-28 10:35 | Observation (INO) | payer SELFPAY ==
[2019-07-28 11:05] LABS: Absolute Lymphocytes (CBC) 1.4 K/uL (0.7-4.9); Basophils % 0.3 % (0-1.3); Hematocrit 40.2 % (39.6-49.0); Lymphocytes % 7.2 % (15.3-44.8); MPV 7.4 fL (7.6-11.3); RBC Red Blood Cell Count 3.82 M/uL (4.33-5.43)
[2019-07-28 11:19] LABS: Protime INR 1.48
[2019-07-28 11:22] LABS: ALT/SGPT 49 U/L (12-78); AST/SGOT 137 U/L (15-37); Albumin 2.6 g/dL (3.4-5.0); Alkaline Phosphatase 204 U/L (45-117); BUN Blood Urea Nitrogen 8 mg/dL (7-18); Bicarbonate 26 mmol/L (21-32); Bilirubin Direct 2.4 mg/dL (0-0.2); Bilirubin Total 4.7 mg/dL (0.2-1.0); Glucose Level 129 mg/dL (74-106); Lipase 190 U/L (73-393); Potassium 3.8 mmol/L (3.5-5.1); Protein, Total 6.6 g/dL (6.4-8.2); Sodium Level 130 mmol/L (136-145)
[2019-07-28] MEDS ORDERED: NA CHLORIDE 0.9% 250 ML ONE (11:35)
[2019-07-28 11:43] LABS: Platelet Estimate ADEQ; Urine White Blood Cell Casts OK
[2019-07-28 11:44] LABS: Hypochromasia 1+; Macrocytosis 1+
[2019-07-28 11:46] LABS: Blood Morphology Comment NOTED (NOT SEEN)
--- NOTE | 2019-07-28 13:39 | ER ---
Nurse's Notes [facility] Name: Papa Del Castillo Age: 64 yrs Sex: Male : 1955 Arrival Date: 07/28/2019 Time: 10:36 Bed 16 Private MD: Diagnosis: Ascites;Abdominal and pelvic pain;Shortness of breath Presentation: 07/28 11:22 Presenting complaint: Patient states: Increased abdominal pain and bloating x 4 to 6 jl7 weeks, paracentesis last Monday took off 6 L, not getting any better. Transition of care: patient was not received from another setting of care. Onset of symptoms was July 08, 2019. Risk Assessment: Do you want to hurt yourself or someone else? Patient reports no desire to harm self or others. Initial Sepsis Screen: Does the patient meet any 2 criteria? No. Patient's initial sepsis screen is negative. Does the patient have a suspected source of infection? No. Patient's initial sepsis screen is negative. Care prior to arrival: None. 11:22 Method Of Arrival: Ambulatory [facility] 11:22 Acuity: FINA 3 jl7 Triage Assessment: 11:25 General: Appears in no apparent distress. uncomfortable, ill, Behavior is calm, jl7 cooperative, appropriate for age. Pain: Complains of pain in abdomen diffusely Pain currently is 10 out of 10 on a pain scale. Quality of pain is described as pressure, sharp, Pain began 6 weeks ago Is continuous. Neuro: Level of Consciousness is awake, alert, obeys commands, Oriented to person, place, time, situation. Cardiovascular: Patient's skin is warm and dry. Respiratory: Airway is patent Respiratory effort is even, unlabored, Respiratory pattern is regular, symmetrical. GI: Abdomen is round noted to have ascites, Stools are reported to be normal. Last BM was July 28, 2019. : Denies burning with urination. Derm: Skin is dry, Skin is jaundiced, Skin temperature is warm. Historical: - Allergies: 11:25 PENICILLINS; jl7 - Home Meds: 11:25 Furosemide Oral [Active]; jl7 - PMHx: 11:25 fatty liver; Cirrhosis; jl7 - PSHx: 11:25 None; jl7 - Immunization history:: Adult Immunizations unknown. - Social history:: Smoking status: Patient/guardian denies using tobacco. - Ebola Screening: : No symptoms or risks identified at this time. Screenin:00 Abuse screen: Denies threats or abuse. Denies injuries from another. Nutritional jl7 screening: No deficits noted. Tuberculosis screening: No symptoms or risk factors identified. Fall Risk IV access (20 points). Total Smith Fall Scale indicates No Risk (0-24 pts). Assessment: 10:45 General: See triage assessment. jl7 12:00 Reassessment: Patient appears in no apparent distress at this time. No changes from jl7 previously documented assessment. Patient and/or family updated on plan of care and expected duration. Pain level reassessed. Patient is alert, oriented x 3, equal unlabored respirations, skin warm/dry/pink. 13:00 Reassessment: Patient appears in no apparent distress at this time. No changes from jl7 previously documented assessment. Patient and/or family updated on plan of care and expected duration. Pain level reassessed. Patient is alert, oriented x 3, equal unlabored respirations, skin warm/dry/pink. 14:00 Reassessment: Patient appears in no apparent distress at this time. No changes from jl7 previously documented assessment. Patient and/or family updated on plan of care and expected duration. Pain level reassessed. Patient is alert, oriented x 3, equal unlabored respirations, skin warm/dry/pink. Vital Signs: 10:47 BP 139 / 83; Pulse 106; Resp 18; Temp 97.6(O); Pulse Ox 97% on R/A; Weight 65.77 kg; 3 Height 5 ft. 10 in. (177.80 cm); Pain 10/10; 12:29 BP 133 / 80; Pulse 101; Resp 19 S; Pulse Ox 96% on R/A; jl7 13:30 BP 116 / 69; Pulse 101; Resp 16 S; Pulse Ox 96% on R/A; jl7 14:30 BP 117 / 74; Pulse 101; Resp 16 S; Pulse Ox 96% on R/A; jl7 10:47 Body Mass Index 20.81 (65.77 kg, 177.80 cm) [facility] ED Course: 10:36 Patient arrived in ED. mr 10:37 Néstor Spivey MD is Attending Physician. kdr 10:57 Initial lab(s) drawn, by me, sent to lab. Inserted saline lock: 22 gauge in right jb1 forearm, using aseptic technique. Blood collected. 11:00 Patient has correct armband on for positive identification. Placed in gown. Bed in low jl7 position. Call light in reach. Side rails up X2. Pulse ox on. NIBP on. Warm blanket given. 11:15 Harris Lawson, RN is Primary Nurse. jl7 11:24 Triage completed. jl7 11:25 Arm band placed on right wrist. jl7 13:36 Luke Eduardo is Hospitalizing Provider. kdr 15:02 No provider procedures requiring assistance completed. Patient admitted, IV remains in jl7 place. intact, No redness/swelling at site. Administered Medications: 12:20 Drug: NS 0.9% 250 ml Route: IV; Rate: bolus; Site: right forearm; jl7 12:50 Follow up: IV Status: Completed infusion; IV Intake: 250ml jl7 Intake: 12:50 IV: 250ml; Total: 250ml. jl7 Outcome: 13:38 Decision to Hospitalize by Provider. kdr 15:02 Admitted to Tele accompanied by tech, via wheelchair, room 409, with chart, Report jl7 called to SUZY Crowell 15:02 Condition: stable 15:02 Discharge instructions given to patient, Instructed on the need for admit, Demonstrated understanding of instructions. 15:07 Patient left the ED. jl7 Signatures: Michael Landon jb1 Néstor Spivey MD MD kdr Kim Davis mr Harris Lawson RN RN jl7 Cristina Bennett 3
--- NOTE | 2019-07-28 13:39 | EDPHYS ---
Physician Documentation [facility] Name: Papa Del Castillo Age: 64 yrs Sex: Male : 1955 Arrival Date: 07/28/2019 Time: 10:36 Bed 16 Private MD: ED Physician Néstor Spivey HPI: 07/28 11:14 This 64 yrs old Male presents to ER via Unassigned with complaints of kdr Abdominal Swelling, Abdominal Pain. 11:14 The patient presents with abdominal pain abdominal distention that is diffuse. Onset: kdr The symptoms/episode began/occurred gradually, 3 day(s) ago. The symptoms do not radiate. Associated signs and symptoms: Pertinent positives: shortness of breath. The symptoms are described as achy, crampy, dull, steady, vague. Modifying factors: The symptoms are alleviated by nothing, the symptoms are aggravated by breathing deeply, walking. Severity of pain: At its worst the pain was moderate in the emergency department the pain is unchanged. The patient has experienced a previous episode, The patient was admitted here on the - discharged on the after having 6 liters of fluid drained. The patient has not recently seen a physician. Historical: - Allergies: 11:25 PENICILLINS; jl7 - Home Meds: 11:25 Furosemide Oral [Active]; jl7 - PMHx: 11:25 fatty liver; Cirrhosis; jl7 - PSHx: 11:25 None; jl7 - Immunization history:: Adult Immunizations unknown. - Social history:: Smoking status: Patient/guardian denies using tobacco. - Ebola Screening: : No symptoms or risks identified at this time. ROS: 11:14 Constitutional: Negative for fever, chills, and weight loss, Eyes: Negative for injury, kdr pain, redness, and discharge, ENT: Negative for injury, pain, and discharge, Neck: Negative for injury, pain, and swelling, Cardiovascular: Negative for chest pain, palpitations, and edema, Respiratory: Negative for shortness of breath, cough, wheezing, and pleuritic chest pain, Back: Negative for injury and pain, : Negative for injury, bleeding, discharge, and swelling, MS/Extremity: Negative for injury and deformity, Skin: Negative for injury, rash, and discoloration, Psych: Negative for depression, anxiety, suicide ideation, homicidal ideation, and hallucinations, Allergy/Immunology: Negative for hives, rash, and allergies, Endocrine: Negative for neck swelling, polydipsia, polyuria, polyphagia, and marked weight changes, Hematologic/Lymphatic: Negative for swollen nodes, abnormal bleeding, and unusual bruising. 11:14 Abdomen/GI: Positive for abdominal pain, nausea, abdominal cramps, abdominal distension, Negative for diarrhea, constipation, anorexia, dysphagia, hematemesis, black/tarry stool, rectal pain, rectal bleeding, bowel incontinence. Exam: 11:14 Constitutional: This is a well developed, well nourished patient who is awake, alert, kdr and in no acute distress. Head/Face: Normocephalic, atraumatic. Eyes: Pupils equal round and reactive to light, extra-ocular motions intact. Lids and lashes normal. Conjunctiva and sclera are non-icteric and not injected. Cornea within normal limits. Periorbital areas with no swelling, redness, or edema. Neck: Trachea midline, no thyromegaly or masses palpated, and no cervical lymphadenopathy. Supple, full range of motion without nuchal rigidity, or vertebral point tenderness. No Meningismus. Chest/axilla: Normal chest wall appearance and motion. Nontender with no deformity. No lesions are appreciated. Cardiovascular: Regular rate and rhythm with a normal S1 and S2. No gallops, murmurs, or rubs. Normal PMI, no JVD. No pulse deficits. Respiratory: Lungs have equal breath sounds bilaterally, clear to auscultation and percussion. No rales, rhonchi or wheezes noted. No increased work of breathing, no retractions or nasal flaring. Back: No spinal tenderness. No costovertebral tenderness. Full range of motion. Skin: Warm, dry with normal turgor. Normal color with no rashes, no lesions, and no evidence of cellulitis. MS/ Extremity: Pulses equal, no cyanosis. Neurovascular intact. Full, normal range of motion. Neuro: Awake and alert, GCS 15, oriented to person, place, time, and situation. Cranial nerves II-XII grossly intact. Motor strength 5/5 in all extremities. Sensory grossly intact. Cerebellar exam normal. Normal gait. Psych: Awake, alert, with orientation to person, place and time. Behavior, mood, and affect are within normal limits. 11:14 Abdomen/GI: Inspection: distension, Bowel sounds: active, diminished, in all quadrants, Palpation: soft, mild abdominal tenderness, in all quadrants, Rectal exam: the exam is deferred. Vital Signs: 10:47 BP 139 / 83; Pulse 106; Resp 18; Temp 97.6(O); Pulse Ox 97% on R/A; Weight 65.77 kg; 3 Height 5 ft. 10 in. (177.80 cm); Pain 10/10; 12:29 BP 133 / 80; Pulse 101; Resp 19 S; Pulse Ox 96% on R/A; jl7 13:30 BP 116 / 69; Pulse 101; Resp 16 S; Pulse Ox 96% on R/A; jl7 14:30 BP 117 / 74; Pulse 101; Resp 16 S; Pulse Ox 96% on R/A; jl7 10:47 Body Mass Index 20.81 (65.77 kg, 177.80 cm) 3 MDM: 13:38 Patient medically screened. kdr 13:38 Data reviewed: vital signs, nurses notes, lab test result(s), radiologic studies. kdr Counseling: I had a detailed discussion with the patient and/or guardian regarding: the historical points, exam findings, and any diagnostic results supporting the discharge/admit diagnosis, lab results, the need for outpatient follow up. 07/28 10:42 Order name: Basic Metabolic Panel; Complete Time: 13:03 [facility] 07/28 10:42 Order name: CBC with Diff; Complete Time: 13:03 [facility] 07/28 10:42 Order name: Creatinine for Radiology; Complete Time: 13:03 [facility] 07/28 10:42 Order name: Hepatic Function; Complete Time: 13:03 [facility] 07/28 10:42 Order name: Lipase; Complete Time: 13:03 [facility] 07/28 10:43 Order name: AMMONIA; Complete Time: 13:03 [facility] 07/28 10:42 Order name: IV Saline Lock; Complete Time: 10:57 [facility] 07/28 10:42 Order name: Labs collected and sent; Complete Time: 10:57 [facility] 07/28 11:05 Order name: PT-INR; Complete Time: 13:03 3 07/28 11:44 Order name: CBC Smear Scan; Complete Time: 13:03 EDMS Administered Medications: 12:20 Drug: NS 0.9% 250 ml Route: IV; Rate: bolus; Site: right forearm; jl7 12:50 Follow up: IV Status: Completed infusion; IV Intake: 250ml jl7 Disposition: 07/28/19 13:38 Hospitalization ordered by Luke Eduardo for Observation. Preliminary diagnosis are Ascites, Abdominal and pelvic pain, Shortness of breath. - Bed requested for Telemetry/MedSurg (observation). - Status is Observation. jl7 - Condition is Fair. - Problem is an acute exacerbation. - Symptoms are unchanged. UTI on Admission? No Signatures: Dispatcher [employer] EDMS Krystle Addison Kevin, MD MD kdr Harris Lawson RN RN jl7 Corrections: (The following items were deleted from the chart) 14:16 13:38 Hospitalization Ordered by Luke Eduardo for Observation. Preliminary diagnosis bd is Ascites; Abdominal and pelvic pain; Shortness of breath. Bed requested for Telemetry/MedSurg (observation). Status is Observation. Condition is Fair. Problem is an acute exacerbation. Symptoms are unchanged. UTI on Admission? No. kdr 15:07 14:16 07/28/2019 13:38 Hospitalization Ordered by Luke Eduardo for Observation. jl7 Preliminary diagnosis is Ascites; Abdominal and pelvic pain; Shortness of breath. Bed requested for Telemetry/MedSurg (observation). Status is Observation. Condition is Fair. Problem is an acute exacerbation. Symptoms are unchanged. UTI on Admission? No. bd
--- NOTE | 2019-07-28 13:44 | P.HP ---
Certification for Inpatient Patient admitted to: Observation With expected LOS: >2 Midnights Practitioner: I am a practitioner with admitting privileges, knowledge of patient current condition, hospital course, and medical plan of care. Services: Services provided to patient in accordance with Admission requirements found in Title 42 Section 412.3 of the Code of Federal Regulations Patient History Date of Service: 07/28/19 Reason for admission: Abdominal distension History of Present Illness: 64-year-old gentleman with a history of alcoholic liver cirrhosis presented to the ED with a complaint of abdominal distention and discomfort and occasional sharp lower abdominal pain. The patient was hospitalized about 4 days ago for abdominal distention had thoracentesis done. 5 L of fluid was drained. The fluid was transudative, with no evidence of infection. The peritoneal fluid culture yielded no growth. He was discharged to establish care with a clinic and a primary provider who will coordinate his care to include periodic paracentesis. Patient stated he has not had a chance to establish care with a PCP. He was also discharged with Aldactone and Lasix for which patient stated he has been compliant in taking them. His white cell count in the ED is elevated. He has hyponatremia. Patient is hospitalized for paracentesis to be done. Allergies Penicillins Allergy (Verified 07/23/19 22:14) Shortness of breath Home Medications: Furosemide [Lasix*] 40 mg PO DAILY #30 tab 07/24/19 Mirtazapine [Remeron*] 15 mg PO BEDTIME #30 tab 07/24/19 Spironolactone [Aldactone*] 100 mg PO DAILY #30 tab 07/24/19 - Past Medical/Surgical History Diabetic: No -: fatty liver -: alcoholic liver cirrhosis - Family History Family History: Reviewed- Non-Contributory - Social History Alcohol use: No CD- Drugs: No Caffeine use: No Review of Systems Other: General: No fever, no malaise. Eyes: No eye discharge, Respiratory: No cough, no shortness of breath. CVS: No chest pain, no palpitation, no lightheadedness. GI: No nausea no vomit, no constipation, no diarrhea. Genitourinary: No dysuria, no urinary frequency, no incontinence, no hematuria. Musculoskeletal: No joint pains, or joint swelling, no gait instability. Neurology: No headache, no asymmetric weakness, no problem with swallowing. Except as documented, all other systems reviewed and negative. Physical Examination - Physical Exam General: Alert, In no apparent distress, Oriented x3 HEENT: Normocephalic, Mucous membr. moist/pink, Sclerae nonicteric Neck: Supple, JVD not distended Respiratory: Clear to auscultation bilaterally, Normal air movement Cardiovascular: No edema, Normal pulses, Regular rate/rhythm, Normal S1 S2 Capillary refill: <2 Seconds Gastrointestinal: Normal bowel sounds, Soft and benign, No tenderness, Distended , Ascites Musculoskeletal: No swelling Integumentary: No rashes Neurological: Normal speech, Normal strength at 5/5 x4 extr - Studies Laboratory Data (last 24 hrs) 07/28/19 11:05: PT 17.2 H, INR 1.48 07/28/19 10:55: Creatinine 0.69 07/28/19 10:55: WBC 19.5 H D, Hgb 13.7, Hct 40.2 D, Plt Count 299 D 07/28/19 10:55: Sodium 130 L, Potassium 3.8, BUN 8, Creatinine 0.68, Glucose 129 H, Total Bilirubin 4.7 H, AST 137 H, ALT 49, Alkaline Phosphatase 204 H, Lipase 190 Assessment and Plan - Problems (Diagnosis) (1) Ascites due to chronic alcoholic hepatitis Current Visit: No Status: Acute (2) Leukocytosis Current Visit: Yes Status: Acute (3) Hyponatremia Current Visit: Yes Status: Acute (4) Alcoholic liver disease Current Visit: No Status: Acute - Plan Placed in observation Free[place] restriction to 1500 mL per day. IV Lasix Monitor input and output Daily weight Continue oral aldactone [place]. guided paracentesis requested Empiric IV Rocephin Monitor CBC - Advance Directives Does patient have a Living Will: No Does patient have a Durable POA for Healthcare: No
[2019-07-28] MEDS ORDERED: ONDANSETRON 4 MG/2 ML VIAL IV PRN (14:24)
[2019-07-28] MEDS ORDERED: ACETAMINOPHEN 500 MG TAB PO PRN (14:24)
[2019-07-28] MEDS: FUROSEMIDE 20 MG/ 2ML VIAL IV SCH (16:43)
[2019-07-28] MEDS ORDERED: TRAMADOL HCL 50 MG TAB PO PRN (16:53)
[2019-07-29 04:11] LABS: Absolute Lymphocytes (CBC) 1.6 K/uL (0.7-4.9); Basophils % 0.2 % (0-1.3); Hematocrit 33.4 % (39.6-49.0); Lymphocytes % 10.2 % (15.3-44.8); MPV 7.2 fL (7.6-11.3)
[2019-07-29 04:31] LABS: ALT/SGPT 38 U/L (12-78); AST/SGOT 103 U/L (15-37); Albumin 2.1 g/dL (3.4-5.0); Alkaline Phosphatase 165 U/L (45-117); BUN Blood Urea Nitrogen 9 mg/dL (7-18); Bicarbonate 29 mmol/L (21-32); Bilirubin Total 3.5 mg/dL (0.2-1.0); Glucose Level 111 mg/dL (74-106); HDL Cholesterol 17 mg/dL (40-60); LDL Cholesterol, Calculated 56 (<130); Magnesium 1.8 mg/dL (1.8-2.4); Phosphorus 3.4 mg/dL (2.5-4.9); Protein, Total 5.2 g/dL (6.4-8.2); Sodium Level 133 mmol/L (136-145)
[2019-07-29 05:19] VITALS: BMI 20.1
[2019-07-29 05:23] LABS: Urine Appearance CLOUDY; Urine Blood NEGATIVE (NEG); Urine Color ORANGE; Urine Glucose NEGATIVE (NEG); Urine Protein NEGATIVE (NEG); Urine pH 5.5 (5.0-7.0)
[2019-07-29 05:26] LABS: Urine Microscopic Reflex ORDER UMIC
[2019-07-29 05:30] LABS: Urine Bilirubin 2+ (NEG)
[2019-07-29 05:36] LABS: Urine Bacteria 20-50 /HPF (NONE SEEN); Urine Culture Reflex Order REFLEXED; Urine Mucus 4+ /HPF (NONE SEEN); Urine RBC <5 /HPF (NONE SEEN); Urine Urothelial Cells <5 /HPF (NONE SEEN)
[2019-07-29 08:29] VITALS: O2SAT 93
[2019-07-29] MEDS ORDERED: MAGNESIUM SULFATE 1 gm IVPB 1 GM/100 ML BAG IV ONE (09:00)
[2019-07-29] MEDS ORDERED: SPIRONOLACTONE 100 MG TAB PO SCH (09:00)
[2019-07-29] MEDS: FUROSEMIDE 20 MG/ 2ML VIAL IV SCH (10:23)
--- NOTE | 2019-07-29 10:36 | RAD REPORT ---
EXAM DESCRIPTION: US - Paracentesis Proc Guidance - 07/29/2019 10:10 am CLINICAL HISTORY: Recurrent ascites Ascites COMPARISON: Paracentesis Proc Guidance dated 07/24/2019 FINDINGS: Informed consent was obtained and time-out was performed. Patient's abdomen was prepped and draped in the usual sterile fashion. 1% lidocaine was used for loca l anesthetic purposes. A small skin incision was made right lower quadrant of the abdomen. A paracentesis catheter was guide d into the peroneal cavity under sonographic guidance. A small amount of fluid was sent for requested lab studies. A large volume paracentesis was performed . The patient tolerated the procedure well. IMPRESSION: Successful ultrasound-guided paracentesis.
--- NOTE | 2019-07-29 11:05 | P.DS ---
Admission Date: 07/28/19 Discharge Date: 07/29/19 Disposition: ROUTINE DISCHARGE Discharge Condition: FAIR Reason for Admission: Abdominal distension Procedures: US guided Paracentesis - Problems (1) Ascites due to chronic alcoholic hepatitis Current Visit: No Status: Acute (2) Leukocytosis Current Visit: Yes Status: Acute (3) Hyponatremia Current Visit: Yes Status: Acute (4) Alcoholic liver disease Current Visit: No Status: Acute Brief History of Present Illness: 64-year-old gentleman with a history of alcoholic liver cirrhosis presented to the ED with a complaint of abdominal distention and discomfort and occasional sharp lower abdominal pain. The patient was hospitalized about 4 days ago for abdominal distention had paracentesis done. 5 L of fluid was drained. The fluid was transudative, with no evidence of infection. The peritoneal fluid culture yielded no growth. He was discharged to establish care with a clinic and a primary provider who will coordinate his care to include periodic paracentesis. Patient stated he has not had a chance to establish care with a PCP. He was also discharged with Aldactone and Lasix for which patient stated he has been compliant in taking them. His white cell count in the ED is elevated. He has hyponatremia. Patient is hospitalized for paracentesis to be done. Hospital Course: The patient was placed under observation on the medical floor. U.S. guided paracentesis was done on and about 4L of fluid drained. Patient's vitals were stable after paracentesis. Leukocytosis trended down. Ascitic fluid cell count does...... infection. Given that there is a moderately elevated WBC, will treat him empirical with oral Levaquin. Dr. Castro has agreed to follow the patient in the office. He is deemed clinically stable for discharge. Vital Signs/Physical Exam: Temp Pulse Resp BP Pulse Ox 97.9 F 89 18 117/63 94 07/29/19 08:00 07/29/19 10:24 07/29/19 08:00 07/29/19 10:24 07/29/19 08:00 General: Alert, In no apparent distress, Oriented x3 HEENT: Mucous membr. moist/pink, Sclerae nonicteric Neck: Supple, JVD not distended Respiratory: Clear to auscultation bilaterally, Normal air movement Cardiovascular: No edema, Regular rate/rhythm, Normal S1 S2 Gastrointestinal: Normal bowel sounds, Soft and benign, No tenderness, Distended Musculoskeletal: No swelling Integumentary: No rashes Neurological: Normal speech, Normal strength at 5/5 x4 extr Laboratory Data at Discharge: WBC 16.1 K/uL (4.3-10.9) H D 07/29/19 03:43 Hgb 11.5 g/dL (13.6-17.9) L 07/29/19 03:43 Hct 33.4 % (39.6-49.0) L D 07/29/19 03:43 Plt Count 222 K/uL (152-406) D 07/29/19 03:43 PT 17.2 SECONDS (9.5-12.5) H 07/28/19 11:05 INR 1.48 07/28/19 11:05 Sodium 133 mmol/L (136-145) L 07/29/19 03:43 Potassium 4.0 mmol/L (3.5-5.1) 07/29/19 03:43 BUN 9 mg/dL (7-18) 07/29/19 03:43 Creatinine 0.59 mg/dL (0.55-1.3) 07/29/19 03:43 Glucose 111 mg/dL (74-106) H 07/29/19 03:43 Phosphorus 3.4 mg/dL (2.5-4.9) 07/29/19 03:43 Magnesium 1.8 mg/dL (1.8-2.4) 07/29/19 03:43 Total Bilirubin 3.5 mg/dL (0.2-1.0) H 07/29/19 03:43 AST 103 U/L (15-37) H 07/29/19 03:43 ALT 38 U/L (12-78) 07/29/19 03:43 Alkaline Phosphatase 165 U/L (45-117) H 07/29/19 03:43 Triglycerides 85 mg/dL (<150) 07/29/19 03:43 Cholesterol 90 mg/dL (<200) 07/29/19 03:43 HDL Cholesterol 17 mg/dL (40-60) L 07/29/19 03:43 Cholesterol/HDL Ratio 5.29 07/29/19 03:43 Lipase 190 U/L (73-393) 07/28/19 10:55 Home Medications: Mirtazapine [Remeron*] 15 mg PO BEDTIME #30 tab 07/24/19 Spironolactone [Aldactone*] 100 mg PO DAILY #30 tab 07/24/19 Furosemide [Lasix] 60 mg PO DAILY #120 tab 07/29/19 levoFLOXacin [Levaquin] 750 mg PO DAILY #7 tab 07/29/19 traMADol HCL [Ultram*] 50 mg PO TID PRN #30 tab 07/29/19 New Medications: Furosemide [Lasix] 60 mg PO DAILY #120 tab levoFLOXacin [Levaquin] 750 mg PO DAILY #7 tab traMADol HCL [Ultram*] 50 mg PO TID PRN #30 tab PRN Reason: Pain Scale 5-7 (Moderate) Diet: Regular Activity: Ad andrez
[2019-07-29 11:49] LABS: Appearance SLT. TURBID (CLEAR); Body Fluid Source PERITONEAL; Color of fluid Yellow (COLORLESS)
[2019-07-29 11:50] LABS: Body Fluid WBC 88 /mm^3
[2019-07-29 12:10] VITALS: BP 107/63; TEMP 97.1
== END 2019-07-29 13:40 | disposition home or self-care (01) ==
LOC: ER 10:35 → ERHOLD 13:48 → 4TH 14:58
PROVIDERS: ADMIT Internal Medicine; ATTEND Internal Medicine
PROC: 0W9G3ZX Drainage of Peritoneal Cavity, Percutaneous Approach, Diagnostic (ICD-10-PCS; principal; 2019-07-29)
PROC: BW40ZZZ Ultrasonography of Abdomen (ICD-10-PCS; 2019-07-29)
DX: K70.31 Alcoholic cirrhosis of liver with ascites (principal); B19.9 Unspecified viral hepatitis without hepatic coma; D72.829 Elevated white blood cell count, unspecified; E87.1 Hypo-osmolality and hyponatremia
CPT/HCPCS: 36415; 49083; 80048; 80053; 80061; 80076; 81003; 81015; 82140; 83690; 83735; 84100; 85025; 85610; 87070; 87086; 87088; 89050; 94760; 96360; 96365; 99285; G0378; J1940; J3475; J7030

== ENCOUNTER 2019-08-05 05:10 | Inpatient (IN) | payer SELFPAY ==
[2019-08-05 06:11] LABS: Absolute Lymphocytes (CBC) 0.7 K/uL (0.7-4.9); Basophils % 0.7 % (0-1.3); MPV 7.4 fL (7.6-11.3); RBC Red Blood Cell Count 3.83 M/uL (4.33-5.43)
[2019-08-05 06:38] LABS: ALT/SGPT 36 U/L (12-78); AST/SGOT 107 U/L (15-37); Albumin 2.3 g/dL (3.4-5.0); Alkaline Phosphatase 176 U/L (45-117); BUN Blood Urea Nitrogen 12 mg/dL (7-18); Bicarbonate 23 mmol/L (21-32); Bilirubin Direct 2.3 mg/dL (0-0.2); Bilirubin Total 4.4 mg/dL (0.2-1.0); Glucose Level 118 mg/dL (74-106); Magnesium 2.1 mg/dL (1.8-2.4); NT PRO-BNP 162 pg/mL (<125); Potassium 3.6 mmol/L (3.5-5.1); Protein, Total 6.3 g/dL (6.4-8.2); Sodium Level 131 mmol/L (136-145); Troponin (Emerg Dept Use Only) < 0.02 ng/mL (0.0-0.045)
[2019-08-05] MEDS ORDERED: NA CHLORIDE 0.9% 1,000 ML ONE (08:16)
[2019-08-05] MEDS ORDERED: CEFTRIAXONE/SWI 1gm 1 GM/10 ML SYR ONE (08:16)
[2019-08-05] MEDS ORDERED: LACTULOSE 20 GM/30 ML UCUP ONE (08:16)
--- NOTE | 2019-08-05 08:19 | ER ---
Nurse's Notes [facility] Name: Papa Del Castillo Age: 64 yrs Sex: Male : 1955 Arrival Date: 08/05/2019 Time: 05:11 Bed 5 Private MD: Diagnosis: Alcoholic cirrhosis of liver with ascites;Hepatic Encephalopathy ;Tachycardia, unspecified;Elevated white blood cell count Presentation: 08/05 05:11 Presenting complaint: EMS states: Called for patient with generalized weakness, patient lp1 on floor on arrival of EMS; Denies fall, states felt weak and laid on floor; Weakness x 3 days, states paracentesis done on 07/30/19. Transition of care: patient was not received from another setting of care. Onset of symptoms was August 05, 2019. Risk Assessment: Do you want to hurt yourself or someone else? Patient reports no desire to harm self or others. Initial Sepsis Screen: Does the patient meet any 2 criteria? No. Patient's initial sepsis screen is negative. Does the patient have a suspected source of infection? No. Patient's initial sepsis screen is negative. Care prior to arrival: IV initiated. 20 GA, in the right wrist. 05:11 Method Of Arrival: EMS: [facility] lp1 05:11 Acuity: FINA 3 lp1 Triage Assessment: 06:36 General: Appears in no apparent distress. comfortable, Behavior is calm. vc Historical: - Allergies: 05:14 PENICILLINS; lp1 - Home Meds: 05:14 Furosemide Oral [Active]; lp1 - PMHx: 05:14 Cirrhosis; fatty liver; lp1 - PSHx: 05:14 None; lp1 - Immunization history:: Adult Immunizations up to date. - Social history:: Smoking status: Patient/guardian denies using tobacco. - Ebola Screening: : No symptoms or risks identified at this time. Screenin:15 Abuse screen: Denies threats or abuse. Denies injuries from another. Nutritional lp1 screening: No deficits noted. Tuberculosis screening: No symptoms or risk factors identified. Fall Risk Total Smith Fall Scale indicates High Risk Score (45 or more points). Fall prevention measures have been instituted. Side Rails Up X 2 As available patient and family educated on Fall Prevention Program and Strategies. Assessment: 05:20 General: Appears emaciated. Pain: Denies pain. Neuro: Level of Consciousness is awake, bb alert, obeys commands, Oriented to person, place, time, situation. Cardiovascular: Heart tones S1 S2 present Capillary refill < 3 seconds Patient's skin is warm and dry. Respiratory: Respiratory effort is even, unlabored, Respiratory pattern is regular, Breath sounds are clear bilaterally. GI: Abdomen is distended, Bowel sounds present X 4 quads. Abd is rigid X 4 quads. Derm: Skin is dry, Skin temperature is warm. Musculoskeletal: Circulation, motion, and sensation intact. 06:30 Reassessment: Patient is alert, oriented x 3, equal unlabored respirations, skin bb warm/dry/pink. pt resting quietly, IV site intact, awaiting diagnostic results. 07:10 Reassessment: Patient appears in no apparent distress at this time. Patient and/or ch family updated on plan of care and expected duration. Pain level reassessed. General: Appears in no apparent distress. comfortable, Behavior is calm, cooperative, quiet. Neuro: Level of Consciousness is awake, alert, obeys commands, Oriented to person, place, time, situation. Respiratory: Breath sounds are diminished in left posterior lower lobe and right posterior lower lobe pt has bowel sounds in his lower lungs, as well as air flow. GI: Abdomen is round noted to have ascites, Bowel sounds present X 4 quads. Abd is non tender X 4 quads pt has a slightly firm belly. Derm: Skin is dry, Skin is jaundiced, Skin temperature is hot pt has some edema on hi arms, hands, legs, and feet. 08:08 Reassessment: No changes from previously documented assessment. Patient and/or family ch updated on plan of care and expected duration. Pain level reassessed. lab on phone with Leonel about pt labs. pt has had tubes sent to the lab 4 times attempting to get coag times. awaiting lab results. 08:42 Reassessment: Patient appears in no apparent distress at this time. pt on bsc. ch 11:09 Reassessment: Patient appears in no apparent distress at this time. Patient and/or ch family updated on plan of care and expected duration. Pain level reassessed. Patient is alert, oriented x 3, equal unlabored respirations, skin warm/dry/pink. Patient states feeling better. 12:17 Reassessment: Patient appears in no apparent distress at this time. Patient and/or ch family updated on plan of care and expected duration. Pain level reassessed. Patient is alert, oriented x 3, equal unlabored respirations, skin warm/dry/pink. pt has bm again, for fourth time. pt changed and is sitting on bsc. 12:17 Reassessment: attempted to call report for the second time, nurse unavailable. 12:57 Reassessment: Patient appears in no apparent distress at this time. Patient and/or ch family updated on plan of care and expected duration. Pain level reassessed. pt sitting upright on bsc, has had two more rounds of bm. attempted to call report to the floor now, awaiting return call. 13:25 Reassessment: Patient appears in no apparent distress at this time. Patient and/or ch family updated on plan of care and expected duration. Pain level reassessed. Patient is alert, oriented x 3, equal unlabored respirations, skin warm/dry/pink. report given to Ryan. 13:26 Reassessment: Patient appears in no apparent distress at this time. Patient and/or ch family updated on plan of care and expected duration. Pain level reassessed. Patient is alert, oriented x 3, equal unlabored respirations, skin warm/dry/pink. Vital Signs: 05:13 BP 115 / 82; Pulse 113; Resp 20; Temp 97.7(O); Pulse Ox 96% on R/A; Weight 46.27 kg lp1 (R); Height 5 ft. 10 in. (177.80 cm); Pain 0/10; 06:48 BP 129 / 80; Pulse 108; Resp 14 S; Pulse Ox 95% on R/A; bb 08:00 BP 117 / 78; Pulse 111; Resp 22; Temp 98.8(O); Pulse Ox 100% on R/A; ch 09:00 BP 106 / 69; Pulse 105; Resp 18; Pulse Ox 96% on R/A; ch 11:10 BP 121 / 77; Pulse 108; Resp 21; Temp 98.5; Pulse Ox 99% on R/A; Pain 0/10; ch 12:21 BP 118 / 76; Pulse 102; Resp 22; Temp 97.9; Pulse Ox 96% on R/A; Pain 0/10; ch 13:26 BP 116 / 78; Pulse 115; Resp 20; Temp 98.4; Pulse Ox 99% on R/A; Pain 2/10; ch 05:13 Body Mass Index 14.64 (46.27 kg, 177.80 cm) lp1 13:26 pt states he feels uncomfortable ch ED Course: 05:11 Patient arrived in ED. lp1 05:13 Triage completed. lp1 05:13 Arm band placed on left wrist. lp1 05:15 Patient has correct armband on for positive identification. Placed in gown. Bed in low lp1 position. Call light in reach. form block maker on. Pulse ox on. NIBP on. 05:40 Fabiola Urban, RN is Primary Nurse. vc 05:48 EKG done, by ED staff, reviewed by Lionel Herndon MD. ds4 05:50 XRAY Chest (1 view) In Process Unspecified. EDMS 05:57 Leonel Roa PA is PHCP. jr8 05:57 Lionel Herndon MD is Attending Physician. jr8 06:32 Blood Culture Adult (2) Sent. vc 06:32 Procalcitonin Sent. vc 06:32 AMMONIA Sent. vc 07:05 Primary Nurse role handed off by Fabiola Urban, SUZY ch 07:05 Tiffanie Mcintyre, SUZY is Primary Nurse. ch 08:13 Amor Monk MD is Hospitalizing Provider. jr8 19:22 No provider procedures requiring assistance completed. Patient admitted, IV remains in ch place. Administered Medications: 08:15 Drug: Lactulose 30 grams Volume: 45 ml; Route: PO; ch 09:49 Follow up: Response: No adverse reaction ch 08:15 Drug: NS 0.9% 1000 ml Route: IV; Rate: 75 ml/hr; Site: right wrist; ch 09:49 Follow up: IV Status: Infusion continued upon admission; IV Intake: 200ml ch 08:15 Drug: Rocephin 1 grams Route: IV; Rate: calculated rate; Site: right wrist; ch 08:22 Follow up: IV Status: Completed infusion; IV Intake: 10ml ch 09:48 Drug: Zofran 4 mg Route: IVP; Site: right wrist; ch 09:49 Follow up: Response: No adverse reaction ch Intake: 08:22 IV: 10ml; Total: 10ml. ch 09:49 IV: 200ml; Total: 210ml. ch Outcome: 08:18 Decision to Hospitalize by Provider. jr8 13:45 Admitted to Med/surg accompanied by tech, via stretcher, Report called to Ryan 13:45 Condition: stable 13:45 Instructed on the need for admit. 13:52 Patient left the ED. hb Signatures: Dispatcher [employer] EDMS Tiffanie Mcintyre RN RN Erica Guan RN RN bb Erica Gaviria RN RN lp1 Leonel Roa PA PA jr8 Cy Ralph ds4 Adry Dunn RN RN Fabiola Urban RN RN vc Corrections: (The following items were deleted from the chart) 06:48 06:44 General: Appears emaciated, bb bb 48 06:44 Pain: Denies pain. bb bb 48 06:44 Neuro: Level of Consciousness is awake, alert, obeys commands, Oriented to bb person, place, time, situation, bb 48 06:44 Cardiovascular: Heart tones S1 S2 present Capillary refill < 3 seconds Patient's bb skin is warm and dry. bb 48 06:44 Respiratory: Respiratory effort is even, unlabored, Respiratory pattern is bb regular, Breath sounds are clear bilaterally. bb :48 06:44 GI: Abdomen is distended, Bowel sounds present X 4 quads. Abd is rigid X 4 quads. bb bb 48 06:44 Derm: Skin is dry, Skin temperature is warm bb bb 48 06:44 Musculoskeletal: Circulation, motion, and sensation intact. bb 08:09 08:08 Reassessment: No changes from previously documented assessment. Patient and/or family updated on plan of care and expected duration. Pain level reassessed. Patient is alert, oriented x 3, equal unlabored respirations, skin warm/dry/pink. lab on phone with Leonel about pt labs. pt has had tubes sent to the lab 4 times attempting to get coag times. awaiting lab results.
--- NOTE | 2019-08-05 08:20 | EDPHYS ---
Physician Documentation [facility] Name: Papa Del Castillo Age: 64 yrs Sex: Male : 1955 Arrival Date: 08/05/2019 Time: 05:11 Bed 5 Private MD: ED Physician Lionel Herndon HPI: 08/05 06:33 This 64 yrs old Male presents to ER via EMS with complaints of General jr8 Weakness. 06:33 Patient brought in by EMS after being called out for sluggishness, weakness, fatigue. jr8 Recently diagnosed with cirrhosis of the liver. Stated that he generally does not feel well and his stomach is getting more swollen again. Denies CP or shortness of breath. Unknown if he is on lactulose or not per patient . Severity of symptoms: At their worst the symptoms were moderate in the emergency department the symptoms are unchanged. It is unknown whether or not the patient has had similar symptoms in the past. It is unknown whether or not the patient has recently seen a physician. Historical: - Allergies: 05:14 PENICILLINS; lp1 - Home Meds: 05:14 Furosemide Oral [Active]; lp1 - PMHx: 05:14 Cirrhosis; fatty liver; lp1 - PSHx: 05:14 None; lp1 - Immunization history:: Adult Immunizations up to date. - Social history:: Smoking status: Patient/guardian denies using tobacco. - Ebola Screening: : No symptoms or risks identified at this time. ROS: 06:33 Constitutional: Positive for fatigue, malaise. jr8 06:33 Abdomen/GI: Positive for abdominal distension, Negative for abdominal pain, nausea, vomiting, and diarrhea, constipation, anorexia, dysphagia, hematemesis, black/tarry stool, rectal pain, rectal bleeding, bowel incontinence, flatulence. 06:33 Neuro: Positive for altered mental status, dizziness, weakness, Negative for headache, loss of consciousness, seizure activity, syncope, tingling, tinnitus, tremor, visual changes. 06:33 All other systems are negative. Exam: 06:33 Head/Face: Normocephalic, atraumatic. ENT: Nares patent. No nasal discharge, no jr8 septal abnormalities noted. Tympanic membranes are normal and external auditory canals are clear. Oropharynx with no redness, swelling, or masses, exudates, or evidence of obstruction, uvula midline. Mucous membranes moist. Neck: Trachea midline, no thyromegaly or masses palpated, and no cervical lymphadenopathy. Supple, full range of motion without nuchal rigidity, or vertebral point tenderness. No Meningismus. Respiratory: Lungs have equal breath sounds bilaterally, clear to auscultation and percussion. No rales, rhonchi or wheezes noted. No increased work of breathing, no retractions or nasal flaring. Back: No spinal tenderness. No costovertebral tenderness. Full range of motion. Skin: Warm, dry with normal turgor. Normal color with no rashes, no lesions, and no evidence of cellulitis. MS/ Extremity: Pulses equal, no cyanosis. Neurovascular intact. Full, normal range of motion. 06:33 Eyes: Periorbital structures: appear normal, Pupils: equal, round, and reactive to light and accomodation, Extraocular movements: intact throughout, Conjunctiva: normal, Corneas: are normal, Sclera: icterus, Anterior chamber: normal, Lids and lashes: appear normal. 06:33 Cardiovascular: Rate: tachycardic, Rhythm: regular, Pulses: Pulses are 2+ in right radial artery and left radial artery. Heart sounds: normal, normal S1and S2, no S3 or S4, no murmur, no rub, no gallop, Edema: is not appreciated, JVD: is not appreciated. 06:33 Abdomen/GI: Inspection: distension, Tense ascites noted, Bowel sounds: active, all quadrants, Palpation: nontender, in all quadrants, Indicators: McBurney's point is not tender, Gasca's sign is negative, Rovsing's sign is negative. 06:33 Neuro: Orientation: to person, place \T\ time. Mentation: able to follow commands, slow to respond, Memory: is normal, Cranial nerves: CN I not tested, CN II- XII are normal as tested, visual patel are intact. extraocular movements are intact, Facial palsy and sensory deficits are absent. Speech is slowed, Tongue strength is normal, Cerebellar function: normal finger to nose testing, heel to benjamin testing is normal, Motor: moves all fours, Sensation: no obvious gross deficits, Gait: not tested. seizure activity, is not displayed by the patient, Abnormal movements: there are no abnormal movements. Vital Signs: 05:13 BP 115 / 82; Pulse 113; Resp 20; Temp 97.7(O); Pulse Ox 96% on R/A; Weight 46.27 kg lp1 (R); Height 5 ft. 10 in. (177.80 cm); Pain 0/10; 06:48 BP 129 / 80; Pulse 108; Resp 14 S; Pulse Ox 95% on R/A; bb 08:00 BP 117 / 78; Pulse 111; Resp 22; Temp 98.8(O); Pulse Ox 100% on R/A; ch 09:00 BP 106 / 69; Pulse 105; Resp 18; Pulse Ox 96% on R/A; ch 11:10 BP 121 / 77; Pulse 108; Resp 21; Temp 98.5; Pulse Ox 99% on R/A; Pain 0/10; ch 12:21 BP 118 / 76; Pulse 102; Resp 22; Temp 97.9; Pulse Ox 96% on R/A; Pain 0/10; ch 13:26 BP 116 / 78; Pulse 115; Resp 20; Temp 98.4; Pulse Ox 99% on R/A; Pain 2/10; ch 05:13 Body Mass Index 14.64 (46.27 kg, 177.80 cm) lp1 13:26 pt states he feels uncomfortable ch MDM: 05:57 Patient medically screened. jr8 08:13 Data reviewed: vital signs, nurses notes, lab test result(s), EKG, radiologic studies, jr8 plain films, and as a result, I will admit patient. Data interpreted: Pulse oximetry: on room air is 95 %. Interpretation: acceptable. Counseling: I had a detailed discussion with the patient and/or guardian regarding: the historical points, exam findings, and any diagnostic results supporting the discharge/admit diagnosis, lab results, radiology results, the need for further work-up and treatment in the hospital. Physician consultation: Amor Monk MD was called at 08:13, was contacted at 08:13, regarding admission, to the telemetry unit. consult, patient's condition, and will see patient. 08/05 05:26 Order name: Basic Metabolic Panel; Complete Time: 07:28 bb 08/05 05:26 Order name: CBC with Diff; Complete Time: 09:33 bb 08/05 05:26 Order name: LFT's; Complete Time: 07:28 bb 08/05 05:26 Order name: Magnesium; Complete Time: 07:28 bb 08/05 05:26 Order name: NT PRO-BNP; Complete Time: 07:28 bb 08/05 05:26 Order name: PT-INR; Complete Time: 12:40 bb 08/05 05:26 Order name: Troponin (emerg Dept Use Only); Complete Time: 07:28 bb 08/05 05:26 Order name: XRAY Chest (1 view); Complete Time: 09:52 bb 08/05 05:27 Order name: AMMONIA; Complete Time: 07:28 bb 08/05 06:16 Order name: Blood Culture Adult (2) [facility] 08/05 06:16 Order name: Procalcitonin; Complete Time: 08:40 [facility] 08/05 09:31 Order name: CBC Smear Scan; Complete Time: 09:33 EDMS 08/05 05:26 Order name: EKG; Complete Time: 05:28 08/05 05:26 Order name: Cardiac monitoring; Complete Time: 05:40 bb 08/05 05:26 Order name: EKG - Nurse/Tech; Complete Time: 05:41 bb 08/05 05:26 Order name: IV Saline Lock; Complete Time: 05:41 08/05 05:26 Order name: Labs collected and sent; Complete Time: 05:41 08/05 05:26 Order name: O2 Per Protocol; Complete Time: 05:41 08/05 05:26 Order name: O2 Sat Monitoring; Complete Time: 05:41 bb Administered Medications: 08:15 Drug: Lactulose 30 grams Volume: 45 ml; Route: PO; ch 09:49 Follow up: Response: No adverse reaction ch 08:15 Drug: NS 0.9% 1000 ml Route: IV; Rate: 75 ml/hr; Site: right wrist; ch 09:49 Follow up: IV Status: Infusion continued upon admission; IV Intake: 200ml ch 08:15 Drug: Rocephin 1 grams Route: IV; Rate: calculated rate; Site: right wrist; ch 08:22 Follow up: IV Status: Completed infusion; IV Intake: 10ml ch 09:48 Drug: Zofran 4 mg Route: IVP; Site: right wrist; ch 09:49 Follow up: Response: No adverse reaction ch Disposition: 19:08 Co-signature as Attending Physician, Lionel Herndon MD. pkl Disposition: 08/05/19 08:18 Hospitalization ordered by Amor Monk for Observation. Preliminary diagnosis are Alcoholic cirrhosis of liver with ascites, Hepatic Encephalopathy , Tachycardia, unspecified, Elevated white blood cell count. - Bed requested for Telemetry/MedSurg (observation). - Status is Observation. hb - Condition is Stable. - Problem is new. - Symptoms are unchanged. UTI on Admission? No Signatures: Dispatcher [employer] EDMS BradleyKrystle palmer Tiffanie Ly, RN RN Lionel Swanson MD MD pkl Erica Guan, RN RN bb Erica Gaviria, RN RN lp1 Leonel Roa PA PA jr8 Adry Dunn RN RN hb Corrections: (The following items were deleted from the chart) 11:12 08:18 Hospitalization Ordered by Amor Monk MD for Observation. Preliminary diagnosis bd is Alcoholic cirrhosis of liver with ascites; Hepatic Encephalopathy ; Tachycardia, unspecified; Elevated white blood cell count. Bed requested for Telemetry/MedSurg (observation). Status is Observation. Condition is Stable. Problem is new. Symptoms are unchanged. UTI on Admission? No. jr8 13:52 11:12 08/05/2019 08:18 Hospitalization Ordered by Amor Monk MD for Observation. hb Preliminary diagnosis is Alcoholic cirrhosis of liver with ascites; Hepatic Encephalopathy ; Tachycardia, unspecified; Elevated white blood cell count. Bed requested for Telemetry/MedSurg (observation). Status is Observation. Condition is Stable. Problem is new. Symptoms are unchanged. UTI on Admission? No. bd
[2019-08-05] MEDS ORDERED: ONDANSETRON 4 MG/2 ML VIAL IV PRN (09:16)
[2019-08-05 09:30] LABS: Blood Morphology Comment NOT SEEN (NOT SEEN); Platelet Estimate ADEQ; Urine White Blood Cell Casts OK
[2019-08-05] MEDS ORDERED: ONDANSETRON 4 MG/2 ML VIAL ONE (09:48)
--- NOTE | 2019-08-05 09:48 | RAD REPORT ---
EXAM DESCRIPTION: RAD - Chest Single View - 08/05/2019 5:48 am CLINICAL HISTORY: Abdominal pain, abdominal distention, shortness of breath COMPARISON: CT imaging July 23, portable chest July 23 TECHNIQUE: AP portable chest image was obtained [id number] hours . FINDINGS: Lungs are underinflated. No peripheral mass or consolidation. Stranding in each lung base is likely atelectasis. The patient has bilateral pleural effusions. Heart and vasculature are normal. No measurable pleural effusion and no pneumothorax. No acute bony abnormality seen. No acute aortic findings suspected. IMPRESSION: Bilateral pleural effusions similar to comparison. Bilateral lung base stranding similar to comparison. This is probably atelectasis.
--- NOTE | 2019-08-05 10:15 | EKG ---
Test Date: 2019-08-05 Test Time: 05:42:57 Ticket Maker: RADHA MEASUREMENT RESULTS: Intervals: Rate: 109 SD: 146 QRSD: 74 QT: 338 QTc: 455 [place]: P: 30 SD: 146 QRS: -12 T: 9 INTERPRETIVE STATEMENTS: Sinus tachycardia Cannot rule out Anterior infarct, age undetermined Abnormal ECG Compared to ECG 07/23/2019 17:18:23 No significant changes Electronically Signed On 08-05-19 10:14:38 REPRODUCTION ORDER PROCESSOR by Yossi Diop
[2019-08-05 12:36] LABS: Protime INR 1.4
[2019-08-05] MEDS ORDERED: POTASSIUM CL SA 10 MEQ TAB PO ONE (14:28)
--- NOTE | 2019-08-05 21:52 | HP ---
Date of Admission: 08/05/2019 Chief Complaint: Altered mental status, lethargy, generalized weakness. History Of Present Illness: Patient is a 64-year-old male with past medical history of liver cirrhos is secondary to alcohol, comes in after recent discharge on 07/29/2019, and paracentesis again with a bdominal distention, altered mental status, lethargy, weakness. Patient was on antibiotics and huang velázquez finished his course. The patient's symptoms are constant, moderate, progressively worsening. De nies any nausea, vomiting, fever, chills. Workup revealed sodium of 131, bilirubin was elevated at 4 .4, ammonia was high at 58. Procalcitonin was negative. White blood cell count was 18,000. Chest x -ray showed small bilateral pleural effusions compared to previous. Patient was then referred for ad mission given dose of Rocephin. Past Medical History: Alcoholic liver cirrhosis. Past Surgical History: None. Allergies: PENICILLIN CAUSES SHORTNESS OF BREATH. Medications: List reviewed. Social History: Patient denies any alcohol use or illicit drug use. Quit drinking 4 weeks ago with recent diagnosis. Family History: Denies any premature coronary artery disease in the family. Review of Systems: Ten-point system reviewed, negative except as per HPI. Physical Examination: Vital Signs: Blood pressure 115/82, pulse 113, respirations 20, temperature 97.7, O2 96% on room air . General: Awake, alert, and oriented x3, in some mild distress, ill-appearing male. CV: S1, S2. Sinus tachycardia. Peripheral pulses present. Respiratory: Diminished breath sounds at the bases. No wheezing, crackles present. Gastrointestinal: Abdomen is distended, mild ascites. No tenderness to palpation. Positive bowel s ounds. Extremities: No clubbing, cyanosis, or edema. No calf tenderness. Neuro: Cranial nerves 2 through 12 intact grossly. No focal neurological deficits. Speech is iggy l. Skin: No rashes. Normal skin turgor. Psych: Mood is depressed. Affect is congruent with mood. Insight and judgment are fair. Laboratory Data: Sodium 131, potassium 3.6, chloride 96, CO2 of 23, BUN 12, creatinine 0.94, BUN 12, creatinine 0.94, glucose 118, calcium 8.5, magnesium 2.1, total bilirubin 4.4, direct bilirubin 2.3, AST 107, ALT 36, ammonia 58. Troponin less than 0.02. BNP 162. Procalcitonin less than 0.05. WBC 18.7, H and H 13.7 and 40, platelets 236, neutrophils 87%. Blood cultures pending. Chest x-ray breana ws bilateral pleural effusions similar to comparison. Bilateral lung base stranding similar to edward rison, probably atelectasis. EKG shows sinus tachycardia, rate of 109. No significant changes compared to previous. Assessment: A 64-year-old male with, 1.Altered mental status, acute hepatic encephalopathy. Ammonia level is elevated. Patient was give n some lactulose. We will continue with 20 g b.i.d., improving. 2.Leukocytosis, unclear etiology, possible spontaneous bacterial peritonitis. We will cover with IV antibiotics. Patient has anaphylactic reaction to penicillin. We will avoid cephalosporins. We wi ll continue to monitor. 3.Hyponatremia likely secondary to alcoholic liver cirrhosis. 4.Liver cirrhosis secondary to alcohol. We will monitor for need for paracentesis. Continue with L asix, fluid restriction, sodium restriction. Monitor weight daily. 5.Hyperbilirubinemia likely secondary to liver cirrhosis. No signs of sepsis. Procalcitonin is neg ative. Plan: Admit patient to Med-Surg, place as inpatient. Length of stay greater than 2 midnights. Prudencio regalado cultures have been obtained. /CARA Voice ID: [id number]
[2019-08-05] MEDS: CIPROFLOXACIN 400mg IV 400 MG/200 ML BAG IV SCH (21:55)
[2019-08-05] MEDS: LACTULOSE 20 GM/30 ML UCUP PO SCH (21:55)
[2019-08-05] MEDS: MIRTAZAPINE 15 MG TAB PO SCH (21:55)
[2019-08-06 05:24] LABS: Basophils % 0.5 % (0-1.3); Hematocrit 35.9 % (39.6-49.0); Lymphocytes % 5.7 % (15.3-44.8); MPV 7.4 fL (7.6-11.3); RBC Red Blood Cell Count 3.48 M/uL (4.33-5.43)
[2019-08-06 05:34] LABS: ALT/SGPT 31 U/L (12-78); AST/SGOT 80 U/L (15-37); Albumin 2.2 g/dL (3.4-5.0); Alkaline Phosphatase 165 U/L (45-117); BUN Blood Urea Nitrogen 10 mg/dL (7-18); Bicarbonate 26 mmol/L (21-32); Bilirubin Total 3.5 mg/dL (0.2-1.0); Glucose Level 119 mg/dL (74-106); Magnesium 2.1 mg/dL (1.8-2.4); Phosphorus 3.1 mg/dL (2.5-4.9); Potassium 3.3 mmol/L (3.5-5.1); Protein, Total 5.9 g/dL (6.4-8.2); Sodium Level 135 mmol/L (136-145)
[2019-08-06] MEDS: CIPROFLOXACIN 400mg IV 400 MG/200 ML BAG IV SCH (08:24)
[2019-08-06] MEDS: SPIRONOLACTONE 100 MG TAB PO SCH (08:25)
[2019-08-06] MEDS: LACTULOSE 20 GM/30 ML UCUP PO SCH ×2 (08:25→21:32)
[2019-08-06] MEDS: FUROSEMIDE 40 MG TABLET PO SCH (08:27)
[2019-08-06] MEDS ORDERED: POTASSIUM 25 MEQ EFFERV TAB PO ONE (09:00)
--- NOTE | 2019-08-06 17:18 | P.PN ---
Subjective Date of Service: 08/06/19 Primary Care Provider: Unknown Chief Complaint: Altered mental status Subjective: Improving, Doing well Physical Examination - Vital Signs Temperature: 97.5 F Blood Pressure: 128/69 Pulse: 122 Respirations: 16 Pulse Ox (%): 95 - Physical Exam General: Alert, In no apparent distress, Oriented x3, Cooperative HEENT: Atraumatic Neck: Supple Respiratory: Clear to auscultation bilaterally, Normal air movement Cardiovascular: Normal pulses, Regular rate/rhythm Gastrointestinal: Ascites Neurological: Normal speech, Normal strength at 5/5 x4 extr, Normal tone, Normal affect - Studies Microbiology Data (last 24 hrs): 08/05/19 06:37 Blood - Blood Anaerobic Blood Culture - Final Medications List Reviewed: Yes Assessment & Plan Discharge Plan: Home Plan to discharge in: 24 Hours Physician Review Additional Text: Impression: Altered mental status secondary to acute hepatic encephalopathy with poor compliance Hyponatremia likely secondary to alcoholic liver cirrhosis Alcoholic liver cirrhosis, chronic Plan: Altered mental status secondary to acute hepatic encephalopathy with poor compliance: Will continue with lactulose. Will make sure he has 2-3 bowel movements per day. Education on compliance with medication. Will also continue with IV diuretic therapy. Fluid restriction addressed. Patient will require ultrasound-guided paracentesis tomorrow. Anticipate discharge likely tomorrow if stable. Hyponatremia likely secondary to alcoholic liver cirrhosis: Continue with current regimen. Alcoholic liver cirrhosis, chronic: Patient will receive paracentesis tomorrow. Anticipate discharge if stable. Time Spent Managing Pts Care (In Minutes): 55
[2019-08-06] MEDS: MIRTAZAPINE 15 MG TAB PO SCH (21:32)
[2019-08-06] MEDS: TRAMADOL HCL 50 MG TAB PO PRN (21:34)
[2019-08-07 04:17] LABS: Absolute Lymphocytes (CBC) 1.2 K/uL (0.7-4.9); Basophils % 0.8 % (0-1.3); Hematocrit 34.9 % (39.6-49.0); Lymphocytes % 8.1 % (15.3-44.8); MPV 7.2 fL (7.6-11.3)
[2019-08-07 04:28] LABS: BUN Blood Urea Nitrogen 10 mg/dL (7-18); Bicarbonate 26 mmol/L (21-32); Glucose Level 112 mg/dL (74-106); Potassium 3.7 mmol/L (3.5-5.1); Sodium Level 135 mmol/L (136-145)
[2019-08-07] MEDS: SPIRONOLACTONE 100 MG TAB PO SCH (08:33)
[2019-08-07] MEDS: FUROSEMIDE 40 MG TABLET PO SCH (08:34)
[2019-08-07] MEDS: LACTULOSE 20 GM/30 ML UCUP PO SCH ×2 (08:34→14:00)
[2019-08-07] MEDS ORDERED: POTASSIUM CL SA 10 MEQ TAB PO ONE (09:00)
--- NOTE | 2019-08-07 10:44 | P.DS ---
Admission Date: 08/05/19 Discharge Date: 08/07/19 Primary Care Provider: Unknown Disposition: ROUTINE DISCHARGE Discharge Condition: GOOD Reason for Admission: Altered mental status Consultations: none Procedures: Radiology assisted paracentesis performed Medical Problem List: Altered mental status secondary to acute hepatic encephalopathy with poor compliance Hyponatremia likely secondary to alcoholic liver cirrhosis Alcoholic liver cirrhosis, chronic with noted ascites requiring paracentesis Chronic pain Brief History of Present Illness: 64-year-old male with history of alcoholic liver cirrhosis presented with altered mental status. Patient found to have hepatic encephalopathy. Patient non compliant with lactulose. Patient admitted for further evaluation and treatment. Hospital Course: Patient admitted for altered mental status secondary to hepatic encephalopathy due to poor compliance. Patient had not been compliant with his lactulose. Patient was giving lactulose with improvement. Ammonia level now within normal range. Patient had elevated white count. No evidence of infection noted. Pro calcitonin negative. Blood cultures negative. Compliance with medication addressed in detail. Patient understands this. At discharge patient will continue with lactulose 20 g per 30 mL 3 times a day to maintain 3-4 bowel movements per day. Recommend to establish care with a PCP to closely monitor. Patient had ascites related to alcoholic liver cirrhosis. Patient required paracentesis. Patient tolerated procedure well. At discharge patient will continue with a 1500 cc per day fluid restriction and low-salt diet. Patient will also continue with his current diuretic regimen of Lasix 60 mg daily and Aldactone 100 mg daily. Patient is to monitor his weight daily. If his weight increases by more than 5 lb he is to contact his PCP for further recommendation. Patient with chronic pain. Patient will continue with tramadol 50 mg 3 times a day as needed for pain. Vital Signs/Physical Exam: Temp Pulse Resp BP Pulse Ox 97.4 F 102 H 17 127/70 95 08/07/19 08:00 08/07/19 08:00 08/07/19 08:00 08/07/19 08:00 08/07/19 08:00 General: Alert, In no apparent distress, Oriented x3, Cooperative HEENT: Atraumatic Neck: Supple Respiratory: Clear to auscultation bilaterally, Normal air movement Cardiovascular: Normal pulses, Regular rate/rhythm Gastrointestinal: Normal bowel sounds, Soft and benign, Ascites Musculoskeletal: No erythema, No tenderness, No warmth Integumentary: No tenderness/swelling, No erythema, No warmth, No cyanosis Neurological: Normal speech, Normal strength at 5/5 x4 extr, Normal tone, Normal affect Laboratory Data at Discharge: WBC 14.9 K/uL (4.3-10.9) H D 08/07/19 03:59 Hgb 12.1 g/dL (13.6-17.9) L 08/07/19 03:59 Hct 34.9 % (39.6-49.0) L 08/07/19 03:59 Plt Count 205 K/uL (152-406) 08/07/19 03:59 PT 16.9 SECONDS (9.5-12.5) H 08/05/19 07:33 INR 1.40 08/05/19 07:33 Sodium 135 mmol/L (136-145) L 08/07/19 03:59 Potassium 3.7 mmol/L (3.5-5.1) 08/07/19 03:59 BUN 10 mg/dL (7-18) 08/07/19 03:59 Creatinine 0.67 mg/dL (0.55-1.3) 08/07/19 03:59 Glucose 112 mg/dL (74-106) H 08/07/19 03:59 Phosphorus 3.1 mg/dL (2.5-4.9) 08/06/19 05:01 Magnesium 2.0 mg/dL (1.8-2.4) 08/07/19 03:59 Total Bilirubin 3.5 mg/dL (0.2-1.0) H 08/06/19 05:01 AST 80 U/L (15-37) H 08/06/19 05:01 ALT 31 U/L (12-78) 08/06/19 05:01 Alkaline Phosphatase 165 U/L (45-117) H 08/06/19 05:01 Home Medications: Mirtazapine [Remeron*] 15 mg PO BEDTIME #30 tab 07/24/19 traMADol HCL [Ultram*] 50 mg PO TID PRN #30 tab 07/29/19 Furosemide [Lasix*] 60 mg PO DAILY #120 tab 08/07/19 Lactulose [Cephulac*] 30 ml PO TID #1 bottle 08/07/19 Spironolactone [Aldactone*] 100 mg PO DAILY #30 tab 08/07/19 New Medications: Furosemide [Lasix*] 60 mg PO DAILY #120 tab Lactulose [Cephulac*] 30 ml PO TID #1 bottle Spironolactone [Aldactone*] 100 mg PO DAILY #30 tab Patient Discharge Instructions: 1. Recommend to establish care with a PCP to follow up this hospitalization and continue his care. 2. Patient admitted for altered mental status secondary to hepatic encephalopathy due to poor compliance. Patient had not been compliant with his lactulose. Patient was giving lactulose with improvement. Ammonia level now within normal range. Patient had elevated white count. No evidence of infection noted. Pro calcitonin negative. Blood cultures negative. Compliance with medication addressed in detail. Patient understands this. At discharge patient will continue with lactulose 20 g per 30 mL 3 times a day to maintain 3-4 bowel movements per day. Recommend to establish care with a PCP to closely monitor. 3. Patient had ascites related to alcoholic liver cirrhosis. Patient required paracentesis. Patient tolerated procedure well. At discharge patient will continue with a 1500 cc per day fluid restriction and low-salt diet. Patient will also continue with his current diuretic regimen of Lasix 60 mg daily and Aldactone 100 mg daily. Patient is to monitor his weight daily. If his weight increases by more than 5 lb he is to contact his PCP for further recommendation. 4. Patient with chronic pain. Patient will continue with tramadol 50 mg 3 times a day as needed for pain. Diet: AHA Activity: Ad andrez Time spent managing pt's care (in minutes): 55
[2019-08-07 11:02] VITALS: O2SAT 95
[2019-08-07] MEDS ORDERED: ALBUMIN HUMAN 25% IV ONE (11:15)
--- NOTE | 2019-08-07 11:41 | RAD REPORT ---
EXAM DESCRIPTION: US - Paracentesis Proc Guidance - 08/07/2019 11:07 am CLINICAL HISTORY: Recurrent ascites COMPARISON: Paracentesis procedure July 29 TECHNIQUE: The patient presents for ultrasound-guided paracentesis. The procedure, risks and altern atives were discussed with the patient in detail. Oral and written consent were obtained. Time out p rocedure was performed. The patient had no contraindicated allergy or medication history. PT, INR va lues within acceptable limits. Preliminary sonographic evaluation identified right lower quadrant access site. The skin and deeper tissues were anesthetized with 1 percent lidocaine. Under direct sonographic visualization, a parace ntesis catheter was advanced into the peritoneal cavity. Approximately 10 cc of ascites retained for requested laboratory studies. Large volume drainage was initiated. Approximately 4.75 liters of ascit es removed. At the conclusion of the procedure, catheter was withdrawn and a bandage placed at the puncture site. Postprocedure care and precaution instructions were given to the patient. Patient was transferred back to the floor for albumin infusion using requesting physician protocol. IMPRESSION: Ultrasound-guided paracentesis as detailed.
[2019-08-07 12:02] VITALS: BP 129/72; TEMP 97
[2019-08-07 13:08] LABS: Appearance CLEAR (CLEAR); Body Fluid Source PERITONEAL; Body Fluid WBC 41 /mm^3; Color of fluid Yellow (COLORLESS)
[2019-08-07] MEDS: TRAMADOL HCL 50 MG TAB PO PRN (14:59)
== END 2019-08-07 15:33 | disposition home or self-care (01) | DRG 433 ==
LOC: ER 05:10 → ERHOLD 08:31 → 4TH 13:26
PROVIDERS: ADMIT Family Medicine; ATTEND Family Medicine
PROC: 0W9G3ZX Drainage of Peritoneal Cavity, Percutaneous Approach, Diagnostic (ICD-10-PCS; principal; 2019-08-07)
DX: K70.40 Alcoholic hepatic failure without coma (principal); E87.1 Hypo-osmolality and hyponatremia; K70.31 Alcoholic cirrhosis of liver with ascites; G89.29 Other chronic pain; Z91.14 Patient's other noncompliance with medication regimen; Z88.0 Allergy status to penicillin
CPT/HCPCS: 36415; 49083; 71045; 80048; 80053; 80076; 82140; 83735; 83880; 84100; 84132; 84145; 84484; 85025; 85610; 87040; 87070; 89050; 93005; 94760; 96361; 96374; 96375; 99285; J0696; J0744; J2405; J7030; P9047

== ENCOUNTER 2019-08-22 09:03 | Emergency (ER) | payer SELFPAY ==
[2019-08-22 10:03] LABS: Absolute Lymphocytes (CBC) 1.3 K/uL (0.7-4.9); Basophils % 0.4 % (0-1.3); Hematocrit 36.9 % (39.6-49.0); Lymphocytes % 11.5 % (15.3-44.8); MPV 7.2 fL (7.6-11.3); RBC Red Blood Cell Count 3.59 M/uL (4.33-5.43)
[2019-08-22 10:28] LABS: ALT/SGPT 23 U/L (12-78); AST/SGOT 60 U/L (15-37); Albumin 2.5 g/dL (3.4-5.0); Alkaline Phosphatase 142 U/L (45-117); BUN Blood Urea Nitrogen 8 mg/dL (7-18); Bicarbonate 26 mmol/L (21-32); Bilirubin Direct 3.1 mg/dL (0-0.2); Glucose Level 108 mg/dL (74-106); Lipase 937 U/L (73-393); Potassium 3.1 mmol/L (3.5-5.1); Protein, Total 6.7 g/dL (6.4-8.2); Sodium Level 128 mmol/L (136-145)
[2019-08-22 10:30] LABS: Bilirubin Total 6.5 mg/dL (0.2-1.0)
--- NOTE | 2019-08-22 11:07 | RAD REPORT ---
EXAM DESCRIPTION: US - Abdomen Exam Limited - 08/22/2019 11:00 am CLINICAL HISTORY: worsening LFTs adn lipase, rule out choledocho COMPARISON: Abdomen Pelvis W Contrast dated 07/23/2019 FINDINGS: No gallstones are identified. Patient does have sludge in the gallbladder. There is no wal l thickening or pericholecystic fluid. No common duct stone or biliary tree dilatation identified. IMPRESSION: No duct stone identified. No biliary tree dilatation. Sludge is present in the lumen of a normal-sized gallbladder. No stones identified.
--- NOTE | 2019-08-22 11:24 | EDPHYS ---
Physician Documentation [facility] Name: Papa Del Castillo Age: 64 yrs Sex: Male : 1955 Arrival Date: 08/22/2019 Time: 09:08 Bed 5 Private MD: ED Physician Nhan Gilbert HPI: 08/22 09:39 This 64 yrs old Male presents to ER via Ambulatory with complaints of rn Abdominal Swelling, rectal bleeding. 09:39 The patient presents with abdominal distention. Onset: The symptoms/episode rn began/occurred at an unknown time. Associated signs and symptoms: Pertinent positives: blood in stools, Pertinent negatives: nausea and vomiting, anorexia, fever, hematuria, shortness of breath, testicular pain. Modifying factors: The symptoms are alleviated by nothing, the symptoms are aggravated by movement, pressure. Severity of pain: At its worst the pain was mild in the emergency department the pain is unchanged. The patient has experienced similar episodes in the past. Reports abdominal swelling, on and off, has alcoholic cirrhosis, came mainly to get paracentesis, has been getting one every week or so. No fever. No new type of pain. Did notice small amount of bright red blood when used bathroom today. No syncope. NO vomiting. Has not followed up with a pcp or GI doctor. . Historical: - Allergies: 09:24 PENICILLINS; ss - PMHx: 09:24 Cirrhosis; fatty liver; ss - Immunization history:: Adult Immunizations up to date. - Ebola Screening: : Patient denies exposure to infectious person Patient denies travel to an Ebola-affected area in the 21 days before illness onset. - Family history:: not pertinent. - Hospitalizations: : The patient was recently seen at [facility]. ROS: 09:39 Constitutional: Negative for fever, chills, and weight loss, Eyes: Negative for injury, rn pain, redness, and discharge, Neck: Negative for injury, pain, and swelling, Cardiovascular: Negative for chest pain, palpitations, and edema, Respiratory: Negative for shortness of breath, cough, wheezing, and pleuritic chest pain, Abdomen/GI: + abd distension and cramping MS/Extremity: Negative for injury and deformity, Skin: Negative for injury, rash, and discoloration, Neuro: Negative for headache, numbness, tingling, and seizure, confusion Exam: 09:39 Constitutional: Cachectic male, no acute distress Head/Face: Normocephalic, rn atraumatic. ENT: dry MM Cardiovascular: Tachycardic, regular Respiratory: No increased work of breathing, no retractions or nasal flaring. Abdomen/GI: soft, + fluid wave, no focal tenderness, no rebound MS/ Extremity: Pulses equal, no cyanosis. Neurovascular intact. Full, normal range of motion. Equal circumference. Neuro: Awake and alert, GCS 15, oriented to person, place, time, and situation. Cranial nerves II-XII grossly intact. Motor strength 4/5 in all extremities. Sensory grossly intact. 09:52 ECG was reviewed by the Attending Physician. rn Vital Signs: 09:24 BP 116 / 82; Pulse 108; Resp 18; Temp 98.3(TE); Pulse Ox 100% on R/A; ss 11:13 BP 119 / 76; Pulse 95; Resp 18; Pulse Ox 99% ; sv MDM: 09:14 Patient medically screened. rn 11:19 Differential diagnosis: ascites, cirrhosis. Data reviewed: vital signs, nurses notes, turn out worker test result(s), and as a result, I will discharge patient. Counseling: I had a detailed discussion with the patient and/or guardian regarding: the historical points, exam findings, and any diagnostic results supporting the discharge/admit diagnosis, lab results, radiology results, the need for outpatient follow up, to return to the emergency department if symptoms worsen or persist or if there are any questions or concerns that arise at home. Special discussion: I discussed with the patient/guardian in detail that at this point there is no indication for admission to the hospital. It is understood, however, that if the symptoms persist or worsen the patient needs to return immediately for re-evaluation. Based on the history and exam findings, there is no indication for further emergent testing or inpatient evaluation. I discussed with the patient/guardian the need to see the safety analyst for further evaluation of the symptoms. I discussed with the patient/guardian the need to see the primary care provider for further evaluation of the symptoms. ED course: No acute changes in bloodwork, hemoglobin 12, normal vitals, not encephalopathic, no indication for emergent admission for paracentesis as abdomen still soft and no GI business economist. No way to perform paracentesis here in ER. Pt is going ot medical records upon discharge to get records because has appt with a new doctor and wants to take everything he has. Gave strict return precautions if continues to bleed and does not improve or stop, or feels like can't take abd swelling anymore. Also needs GI doctor. Had long conversation with patient regarding cirrhosis, chronic problems with such, and future outlook.. 11:24 ED course: Pt here primarily for paracentesis, no further bleeding episodes, will rn monitor. . 08/22 09:38 Order name: Basic Metabolic Panel; Complete Time: 10:39 rn 08/22 09:38 Order name: CBC with Diff; Complete Time: 10:13 rn 08/22 09:38 Order name: Creatinine for Radiology; Complete Time: 10:30 rn 08/22 09:38 Order name: Hepatic Function; Complete Time: 10:39 rn 08/22 09:38 Order name: Lipase; Complete Time: 10:39 rn 08/22 09:38 Order name: IV Saline Lock; Complete Time: 11:27 rn 08/22 09:38 Order name: Labs collected and sent; Complete Time: 09:56 rn 08/22 09:39 Order name: AMMONIA; Complete Time: 11:24 rn 08/22 10:03 Order name: Labs - recollect needed: recollect ammonia ON ICE; Complete Time: 10:59 ss 08/22 10:32 Order name: Labs - recollect needed: Blue top only; Complete Time: 10:59 em1 08/22 10:42 Order name: US Abdomen Limited; Complete Time: 11:12 rn EC:52 Rate is 109 beats/min. Rhythm is regular. QRS Art is Normal. DC interval is normal. rn QRS interval is normal. QT interval is normal. No Q waves. T waves are Normal. No ST changes noted. Clinical impression: Sinus tachycardia. Interpreted by me. Reviewed by me. Administered Medications: No medications were administered Disposition: 08/22/19 11:23 Discharged to Home. Impression: Alcoholic cirrhosis of liver, Ascites. - Condition is Stable. - Discharge Instructions: Ascites, Alcoholic Liver Disease. - Medication Reconciliation Form, Thank You Letter, Antibiotic Education, Prescription Opioid Use form. - Follow up: Jet Johnson MD; When: 2 - 3 days; Reason: Recheck today's complaints, Re-evaluation by your physician. - Problem is an ongoing problem. - Symptoms are unchanged. Signatures: Dispatcher [employer] Nhan Moreno MD MD rn Martinez, Ramón [facility] Sudha Smith RN RN ss Corrections: (The following items were deleted from the chart) 11:54 11:23 08/22/2019 11:23 Discharged to Home. Impression: Alcoholic cirrhosis of liver; ss Ascites. Condition is Stable. Forms are Medication Reconciliation Form, Thank You Letter, Antibiotic Education, Prescription Opioid Use. Follow up: Jet Johnson; When: 2 - 3 days; Reason: Recheck today's complaints, Re-evaluation by your physician. Problem is an ongoing problem. Symptoms are unchanged. rn
--- NOTE | 2019-08-22 11:24 | ER ---
Nurse's Notes [facility] Name: Papa Del Castillo Age: 64 yrs Sex: Male : 1955 Arrival Date: 08/22/2019 Time: 09:08 Bed 5 Private MD: Diagnosis: Alcoholic cirrhosis of liver;Ascites Presentation: 08/22 09:22 Presenting complaint: Patient states: abd cramping and rectal bleeding that began last ss night. Pt believes he is due to have another paracentesis to drain his ascites. Hx of cirrhosis. Transition of care: patient was not received from another setting of care. Onset of symptoms is unknown. Risk Assessment: Do you want to hurt yourself or someone else? Patient reports no desire to harm self or others. Initial Sepsis Screen: Does the patient meet any 2 criteria? HR > 90 bpm. Does the patient have a suspected source of infection? No. Patient's initial sepsis screen is negative. Care prior to arrival: None. 09:22 Method Of Arrival: Ambulatory ss 09:22 Acuity: FINA 2 ss Historical: - Allergies: 09:24 PENICILLINS; ss - PMHx: 09:24 Cirrhosis; fatty liver; ss - Immunization history:: Adult Immunizations up to date. - Ebola Screening: : Patient denies exposure to infectious person Patient denies travel to an Ebola-affected area in the 21 days before illness onset. - Family history:: not pertinent. - Hospitalizations: : The patient was recently seen at [facility]. Screenin:45 Abuse screen: Denies threats or abuse. Denies injuries from another. Nutritional sg screening: No deficits noted. Tuberculosis screening: No symptoms or risk factors identified. Never had TB. Fall Risk None identified. Assessment: 09:45 General: Appears in no apparent distress. well groomed, well developed, well nourished, sg Behavior is calm, cooperative, appropriate for age. Pain: Complains of pain in abdomen Quality of pain is described as aching. Neuro: Level of Consciousness is awake, alert, obeys commands, Oriented to person, place, Speech is normal, Facial symmetry appears normal. Cardiovascular: Patient's skin is warm and dry. Chest pain is denied. Respiratory: Airway is patent Respiratory effort is even, unlabored, Respiratory pattern is regular, symmetrical. GI: Bowel sounds present X 4 quads. Abd is soft Reports tolerance of fluids, tolerance of food, abdominal swelling for 2-3 days. : No signs and/or symptoms were reported regarding the genitourinary system. EENT: No signs and/or symptoms were reported regarding the EENT system. Derm: Skin is pink, warm \\T\\ dry. Musculoskeletal: Circulation, motion, and sensation intact. 10:22 Reassessment: Sandrine Jonny, family friend called, reports " Yes, I am a good friend of sg his (pt), I would like to just tell you that he is bleeding pretty heavily from the rectum, and also... is it true that when they remove fluid from the abdomen that it can be tested for cancer cells. We are also concerned that there might be cancer as well.". Reassessment: SHRUTHI Bahena notified of pt family/friend concern for patient. Vital Signs: 09:24 BP 116 / 82; Pulse 108; Resp 18; Temp 98.3(TE); Pulse Ox 100% on R/A; ss 11:13 BP 119 / 76; Pulse 95; Resp 18; Pulse Ox 99% ; sv ED Course: 09:08 Patient arrived in ED. as 09:13 Nhan Gilbert MD is Attending Physician. rn 09:24 Triage completed. ss 09:24 Arm band placed on right wrist. ss 09:30 Cristobal Romeo, RN is Primary Nurse. sg 09:33 EKG done, by public health technologist. reviewed by Nhan Gilbert MD. at1 09:55 Initial lab(s) drawn, by me, sent to lab. Missed attempt(s): 22 gauge in left sg antecubital area. Bleeding controlled, band aid applied, catheter tip intact. 10:00 Missed attempt(s): 22 gauge in right antecubital area. kj1 10:38 Lab(s) recollected, by ED staff, sent to lab. sg 10:42 Lab(s) recollected, by me, sent to lab. sg 11:01 US Abdomen Limited In Process Unspecified. EDMS 11:22 Jet Johnson MD is Referral Physician. rn Administered Medications: No medications were administered Outcome: 11:23 Discharge ordered by . rn 11:54 Patient left the ED. ss Signatures: Dispatcher [employer] Amy Patton RN RN sv Gay, Steven, RN RN Martine Hermosillo Roman, MD MD rn Smirch, Shelby, RN RN Jessica Valadez, sql ssrs ssis developer EK [id number] Mary Ellen Garcia1
[2019-08-22 12:06] VITALS: TEMP 98.3
[2019-08-22 12:07] VITALS: BP 119/76; O2SAT 99
--- NOTE | 2019-08-23 08:11 | EKG ---
Test Date: 2019-08-22 Test Time: 09:18:50 Margin Clerk: FLOR MEASUREMENT RESULTS: Intervals: Rate: 109 IN: QRSD: 80 QT: 338 QTc: 455 [place]: P: IN: QRS: 10 T: 43 INTERPRETIVE STATEMENTS: Accelerated Junctional rhythm Cannot rule out Anterior infarct, age undetermined Abnormal ECG Compared to ECG 08/05/2019 05:42:57 Accelerated junctional rhythm now present Sinus tachycardia no longer present Myocardial infarct finding still present Electronically Signed On 08-23-19 08:07:40 REAL TIME OPERATOR by Franki Lara
== END 2019-08-22 11:54 | disposition home or self-care (01) ==
LOC: ER 09:03
DX: K70.31 Alcoholic cirrhosis of liver with ascites (principal); F10.20 Alcohol dependence, uncomplicated; Z88.0 Allergy status to penicillin
CPT/HCPCS: 36415; 76705; 80048; 80076; 82140; 83690; 85025; 93005; 99283

== ENCOUNTER 2019-09-02 12:28 | Emergency (ER) | payer SELFPAY ==
--- NOTE | 2019-09-02 15:38 | EDPHYS ---
Physician Documentation [facility] Name: Papa Del Castillo Age: 64 yrs Sex: Male : 1955 Arrival Date: 09/02/2019 Time: 12:32 Bed 26 Private MD: ED Physician Mckinley Zamarripa HPI: 09/02 14:10 This 64 yrs old Male presents to ER via Ambulatory with complaints of jmm Laceration To Arm. 14:10 Onset: The symptoms/episode began/occurred acutely, 1 week(s) ago. Associated signs and jmm symptoms: Pertinent negatives: loss of consciousness. 14:10 This is a 64 year old male with a history of cirrhosis that presents to the ED with jmm complaints of left forearm wound. Patient states he fell on cement. Denies fever, denies purulent drainage. . Historical: - Allergies: 13:46 PENICILLINS; tw2 - Home Meds: 13:46 Furosemide Oral [Active]; tw2 - PMHx: 13:46 Cirrhosis; fatty liver; tw2 - Immunization history:: Adult Immunizations. - Coronavirus screen:: The patient has NOT traveled to [place], [place], or [place] in the past 14 days. - Social history:: Smoking status: . - Ebola Screening: : Patient denies travel to an Ebola-affected area in the 21 days before illness onset No symptoms or risks identified at this time. ROS: 14:10 Constitutional: Negative for fever, chills, and weight loss, Cardiovascular: Negative jmm for chest pain, palpitations, and edema, Respiratory: Negative for shortness of breath, cough, wheezing, and pleuritic chest pain. 14:10 Skin: Positive for abrasion(s). 14:10 All other systems are negative. Exam: 14:10 Constitutional: This is a well developed, well nourished patient who is awake, alert, jmm and in no acute distress. Head/Face: atraumatic. Eyes: EOMI, no conjunctival erythema appreciated ENT: Moist Mucus Membranes Neck: Trachea midline, Supple Chest/axilla: Normal chest wall appearance and motion. Cardiovascular: Regular rate and rhythm. No edema appreciated Respiratory: Normal respirations, no respiratory distress appreciated Abdomen/GI: Non distended, soft Back: Normal ROM 14:10 Skin: 6 cm abrasion noted to the left forearm, no purulent drainage appreciated, no surround induration appreciated. 14:10 Neuro: Orientation: is normal, Mentation: is normal, Memory: is normal. 14:10 Psych: Behavior/mood is pleasant, cooperative. Vital Signs: 13:45 BP 102 / 69; Pulse 103; Resp 18; Temp 97.8(O); Pulse Ox 97% on R/A; Weight 61.23 kg tw2 (R); Height 5 ft. 10 in. (177.80 cm); Pain 8/10; 13:45 Body Mass Index 19.37 (61.23 kg, 177.80 cm) tw2 MDM: 14:10 Patient medically screened. [facility] 15:36 Data reviewed: vital signs, nurses notes. Counseling: I had a detailed discussion with artis the patient and/or guardian regarding: the historical points, exam findings, and any diagnostic results supporting the discharge/admit diagnosis, the need for outpatient follow up, to return to the emergency department if symptoms worsen or persist or if there are any questions or concerns that arise at home. 15:36 ED course: Wound cleaned and debrided. Patient advised to follow up with pcp for wound jmm care and otherwise given strict return precautions. Patient understood and agrees with the plan of care. . Administered Medications: No medications were administered Disposition: 09/03 08:50 Co-signature as Attending Physician, Mckinley Zamarripa MD I agree with the assessment and [facility] plan of care. Disposition: 09/02/19 15:38 Discharged to Home. Impression: Abrasion of left forearm. - Condition is Stable. - Discharge Instructions: Abrasion. - Prescriptions for Bactrim DS 800- 160 mg Oral Tablet - take 1 tablet by ORAL route every 12 hours for 10 days; 14 tablet. - Medication Reconciliation Form, Thank You Letter, Antibiotic Education, Prescription Opioid Use form. - Follow up: Private Physician; When: 2 - 3 days; Reason: Recheck today's complaints, Continuance of care, Re-evaluation by your physician. Signatures: Mckinley Zamarripa MD MD cha Mickail, Joel, PA PA jmm Wise, Tara, RN RN tw2 Sridhar Medrano RN RN mg2 Corrections: (The following items were deleted from the chart) 09/02 15:55 15:38 09/02/2019 15:38 Discharged to Home. Impression: Abrasion of left forearm. mg2 Condition is Stable. Forms are Medication Reconciliation Form, Thank You Letter, Antibiotic Education, Prescription Opioid Use. Follow up: Private Physician; When: 2 - 3 days; Reason: Recheck today's complaints, Continuance of care, Re-evaluation by your physician. artis
--- NOTE | 2019-09-02 15:38 | ER ---
Nurse's Notes [facility] Name: Papa Del Castillo Age: 64 yrs Sex: Male : 1955 Arrival Date: 09/02/2019 Time: 12:32 Bed 26 Private MD: Diagnosis: Abrasion of left forearm Presentation: 09/02 13:42 Presenting complaint: Patient states: i fell a week ago, i hit the curb and i scraped tw2 my LEFT arm on the curb, i have been trying to clean it and wrap it but i am not very good at it, i just need someone to look at it. Transition of care: patient was not received from another setting of care. Complicating Factors: There are no complicating factors for this patient. Onset of symptoms was September 02, 2019. Risk Assessment: Do you want to hurt yourself or someone else? Patient reports no desire to harm self or others. Initial Sepsis Screen: Does the patient meet any 2 criteria? No. Patient's initial sepsis screen is negative. Does the patient have a suspected source of infection? No. Patient's initial sepsis screen is negative. Care prior to arrival: None. 13:42 Method Of Arrival: Ambulatory tw2 13:42 Acuity: FINA 4 tw2 Triage Assessment: 13:45 General: Appears in no apparent distress. slender, Behavior is calm, cooperative, tw2 appropriate for age. Pain: Complains of pain in left arm. Injury Description: Abrasion sustained to left arm. Injury Description: Laceration is not bleeding, skin tear noted to the LEFT forearm. Historical: - Allergies: 13:46 PENICILLINS; tw2 - Home Meds: 13:46 Furosemide Oral [Active]; tw2 - PMHx: 13:46 Cirrhosis; fatty liver; tw2 - Immunization history:: Adult Immunizations. - Coronavirus screen:: The patient has NOT traveled to [place], [place], or [place] in the past 14 days. - Social history:: Smoking status: . - Ebola Screening: : Patient denies travel to an Ebola-affected area in the 21 days before illness onset No symptoms or risks identified at this time. Screenin:13 Abuse screen: Denies threats or abuse. Denies injuries from another. Nutritional sv screening: No deficits noted. Tuberculosis screening: No symptoms or risk factors identified. Fall Risk None identified. Assessment: 14:11 General: Appears in no apparent distress. comfortable, slender, Behavior is calm, sv cooperative, appropriate for age. Pain: Complains of pain in left arm Pain currently is 8 out of 10 on a pain scale. Pain began a week ago Is intermittent. Neuro: Level of Consciousness is awake, alert, obeys commands, Oriented to person, place, time, situation, Moves all extremities. Full function Gait is steady, Speech is normal. Respiratory: Airway is patent Respiratory effort is even, unlabored, Respiratory pattern is regular, symmetrical. Derm: Skin is pink, warm \T\ dry. Musculoskeletal: Range of motion: intact in all extremities. Injury Description: skin tear to the left posterior forearm that occurred a week ago after falling onto concrete. Healing noted to the skin tear. Vital Signs: 13:45 BP 102 / 69; Pulse 103; Resp 18; Temp 97.8(O); Pulse Ox 97% on R/A; Weight 61.23 kg tw2 (R); Height 5 ft. 10 in. (177.80 cm); Pain 8/10; 13:45 Body Mass Index 19.37 (61.23 kg, 177.80 cm) tw2 ED Course: 12:32 Patient arrived in ED. mr 13:44 Triage completed. tw2 13:44 Arm band placed on. tw2 14:05 Evan Greenberg PA is PHCP. [facility] 14:05 Mckinley Zamarripa MD is Attending Physician. jmm 14:10 Amy Finnegan, SUZY is Primary Nurse. sv 14:13 Patient has correct armband on for positive identification. Bed in low position. Call sv light in reach. Door closed. Head of bed elevated. 14:35 Awaiting ED provider evaluation. sv 14:45 Nurse Practitioner and/or Physician Photography Professor to see patient. sv 15:00 Dressings: wet to dry 4x4 gauze and wrapped with kerlix. sv 15:37 Awaiting disposition. sv 15:53 No provider procedures requiring assistance completed. Patient did not have IV access mg2 during this emergency room visit. Administered Medications: No medications were administered Outcome: 15:38 Discharge ordered by . jm 15:53 Discharged to home via wheelchair. mg2 15:53 Condition: stable 15:53 Discharge instructions given to patient, Instructed on discharge instructions, follow up and referral plans. medication usage, Demonstrated understanding of instructions, follow-up care, medications, Prescriptions given X 1. 15:55 Patient left the ED. mg2 Signatures: Amy Finnegan, RN RN Evan Agosto PA PA jmm Rivera, Mary mr Ian, Hannah, RN RN tw2 Sridhar Medrano RN RN mg2
[2019-09-02 16:25] VITALS: BP 102/69; TEMP 97.8; O2SAT 97
== END 2019-09-02 15:55 | disposition home or self-care (01) ==
LOC: ER 12:28
DX: S50.812A Abrasion of left forearm, initial encounter (principal); W19.XXXA Unspecified fall, initial encounter; Y93.9 Activity, unspecified; Y92.89 Other specified places as the place of occurrence of the external cause; Z88.0 Allergy status to penicillin; K74.60 Unspecified cirrhosis of liver
CPT/HCPCS: 99282

== ENCOUNTER 2019-10-02 08:14 | Inpatient (IN) | payer SELFPAY ==
[2019-10-02] MEDS ORDERED: NA CHLORIDE 0.9% 1,000 ML ONE (08:45)
--- NOTE | 2019-10-02 09:55 | RAD REPORT ---
EXAM DESCRIPTION: RAD - Chest Single View - 10/02/2019 8:51 am CLINICAL HISTORY: DYSPNEA COMPARISON: Chest Single View dated 08/05/2019 TECHNIQUE: AP portable chest image was obtained 10/02/2019 8:51 am . FINDINGS: Lungs are normal volume. Small areas spiculated parenchyma left upper lung field is simila r to comparison. Moderate left pleural effusion is present similar or slightly increased from the Dec ember comparison. No measurable right pleural effusion. There is apical wall thickening in the right and apical thickening on the left that are new from the comparison. It is possible this is fluid in t he apex rather than true soft tissue pleural thickening. Heart and vasculature are normal. No pneumot horax. No acute bony abnormality seen. No acute aortic findings suspected. IMPRESSION: Moderate left pleural effusion similar or fractionally increased from July 2019. No measurable right pleural effusion. No acute lung parenchymal process. New biapical pleural thickening that may be fluid rather than soft tissue thickening.
[2019-10-02 10:35] LABS: Absolute Lymphocytes (CBC) 0.5 K/uL (0.7-4.9); Basophils % 0.4 % (0-1.3); Hematocrit 34.1 % (39.6-49.0); Lymphocytes % 4.8 % (15.3-44.8); MPV 6.5 fL (7.6-11.3); RBC Red Blood Cell Count 3.24 M/uL (4.33-5.43)
[2019-10-02 10:39] LABS: Protime INR 1.44
[2019-10-02 10:59] LABS: Blood Morphology Comment NOT SEEN (NOT SEEN); Platelet Estimate ADEQ
[2019-10-02 11:04] LABS: ALT/SGPT 24 U/L (12-78); AST/SGOT 45 U/L (15-37); Albumin 2.1 g/dL (3.4-5.0); Alkaline Phosphatase 107 U/L (45-117); BUN Blood Urea Nitrogen 7 mg/dL (7-18); Bicarbonate 25 mmol/L (21-32); Bilirubin Direct 3.9 mg/dL (0-0.2); Glucose Level 90 mg/dL (74-106); Lipase 207 U/L (73-393); Magnesium 1.9 mg/dL (1.8-2.4); Potassium 3.7 mmol/L (3.5-5.1); Protein, Total 5.6 g/dL (6.4-8.2); Sodium Level 123 mmol/L (136-145)
[2019-10-02 11:05] LABS: Bilirubin Total 8.3 mg/dL (0.2-1.0)
[2019-10-02] MEDS ORDERED: ALBUMIN HUMAN 25% 100 ML IV ONE (12:06)
[2019-10-02] MEDS ORDERED: NA CHLORIDE 0.9% 100 ML IV ONE (12:08)
--- NOTE | 2019-10-02 13:00 | P.HP ---
Certification for Inpatient Patient admitted to: Observation With expected LOS: <2 Midnights Patient will require the following post-hospital care: Home Health Services Practitioner: I am a practitioner with admitting privileges, knowledge of patient current condition, hospital course, and medical plan of care. Services: Services provided to patient in accordance with Admission requirements found in Title 42 Section 412.3 of the Code of Federal Regulations Patient History Date of Service: 10/02/19 Primary Care Provider: none; JEANNETTE-Dr. Castro Reason for admission: Fatigue, shortness of breath History of Present Illness: 64-year-old male with history of alcoholic cirrhosis presented to emergency room with increased fatigue and shortness of breath. Patient is seen by GI locally. Patient has alcoholic cirrhosis. He has quit alcohol since June 2019. Patient takes diuretic therapy. Over the past several days he has been having increased fatigue with poor appetite. He denies any significant chest pain, fever, chills. Patient came to the ER for further evaluation. In the ER, vital signs stable. White count 10.3, hemoglobin 12.3. Platelet count 210. Sodium 123, potassium 3.7. Venous 7, creatinine 0.8 with a GFR greater than 90. Chest x-ray showed follow pleural effusions. Total bilirubin 8.3, AST 45. Lipase negative. Patient was admitted for further evaluation and treatment. When I saw the patient ER, he was jaundiced. He did not appear in any respiratory distress Patient with ascites. Last paracentesis done probably about 1-2 months ago. He is scheduled to see hepatology at [facility] next month. Allergies Penicillins Allergy (Verified 07/23/19 22:14) Shortness of breath Home medications list reviewed: Yes Home Medications: Mirtazapine [Remeron*] 15 mg PO BEDTIME #30 tab 07/24/19 traMADol HCL [Ultram*] 50 mg PO TID PRN #30 tab 07/29/19 Furosemide [Lasix*] 60 mg PO DAILY #120 tab 08/07/19 Lactulose [Cephulac*] 30 ml PO TID #1 bottle 08/07/19 Spironolactone [Aldactone*] 100 mg PO DAILY #30 tab 08/07/19 - Past Medical/Surgical History Diabetic: No -: Fatty liver -: Alcoholic liver cirrhosis -: Chronic hyponatremia -: Prior alcohol abuse -: Paracentesis Psychosocial/ Personal History: Patient lives at home with a roommate. - Family History Family History: Reviewed- Non-Contributory - Social History Smoking Status: Never smoker Alcohol use: No CD- Drugs: No Caffeine use: No Place of Residence: Home Review of Systems General: Weakness, Malaise Eyes: Unremarkable ENT: Unremarkable Respiratory: Shortness of Breath, As per HPI Cardiovascular: Edema, As per HPI Gastrointestinal: As per HPI Genitourinary: Unremarkable Musculoskeletal: As per HPI Integumentary: Unremarkable Neurological: Unremarkable Lymphatics: Unremarkable Physical Examination - Physical Exam General: Alert, In no apparent distress, Oriented x3, Cooperative, Other ( Patient appears jaundice) HEENT: Other (Dry mucous membranes), Scleral icterus Neck: Supple Respiratory: Crackles/rales (Minimal crackles to the bases) Cardiovascular: Normal pulses, Regular rate/rhythm Gastrointestinal: Normal bowel sounds, Soft and benign, Non-distended, No tenderness, No masses, No rebound, No guarding, Ascites (Ascites noted) Musculoskeletal: No contractures, No erythema, No tenderness, No warmth Integumentary: No tenderness/swelling, No erythema, No warmth, No cyanosis Neurological: Normal speech, Normal strength at 5/5 x4 extr, Normal tone, Normal affect - Studies Laboratory Data (last 24 hrs) 10/02/19 10:20: PT 16.8 H, INR 1.44, APTT 34.0 10/02/19 10:20: WBC 10.3, Hgb 12.3 L, Hct 34.1 L, Plt Count 210 10/02/19 10:20: Sodium 123 L, Potassium 3.7, BUN 7, Creatinine 0.68, Glucose 90 , Magnesium 1.9, Total Bilirubin 8.3 H*, AST 45 H, ALT 24, Alkaline Phosphatase 107, Lipase 207 10/02/19 08:30: Creatinine 0.81 Assessment and Plan - Plan Impression: Fatigue, shortness of breath secondary to ascites complicated with chronic bilateral pleural effusion related to alcoholic liver cirrhosis Hyponatremia likely chronic Former alcohol use Elevated liver function with hyperbilirubinemia secondary to alcoholic liver cirrhosis Plan: Fatigue, shortness of breath secondary to ascites complicated with chronic bilateral pleural effusion related to alcoholic liver cirrhosis: Patient be admitted for further evaluation and treatment. Will continue with Lasix and Aldactone. Will decrease Aldactone at this time. Will discuss with his optometry assistant. Will make arrangements for radiology assisted paracentesis. Anticipate improvement after paracentesis. Will check echocardiogram. Will physical therapy ambulate and assess. Will have dietary assess nutrition. Will consult Nephrology to address hyponatremia. Will start salt tablet. Anticipate improvement over the next 24 hr. Possible discharge tomorrow. Will discuss with professor of social work about arranging home health. Advanced directives address in detail. Patient is do not resuscitate. Will provide information on hospice as this may need to be considered in the future. Hyponatremia likely chronic: Will check urine osmolality and sodium level. Will provide salt tablet. Nephrology consulted to further assist. Former alcohol use: Patient last drank in June of 2019. He plans to continue cessation. Elevated liver function with hyperbilirubinemia secondary to alcoholic liver cirrhosis: Will monitor closely. Will discuss with his GI specialist. Patient is to see hepatology at [facility] in October for options of care. Discharge Plan: Home Plan to discharge in: 24 Hours - Advance Directives Does patient have a Living Will: No Does patient have a Durable POA for Healthcare: No - Code Status/Comfort Care Code Status Assessed: Yes (Patient is do not resuscitate) Time Spent Managing Pts Care (In Minutes): 55
--- NOTE | 2019-10-02 13:48 | EDPHYS ---
Physician Documentation [facility] Name: Papa Del Castillo Age: 64 yrs Sex: Male : 1955 Arrival Date: 10/02/2019 Time: 08:15 Bed 6 Private MD: ED Physician Néstor Spivey HPI: 10/02 09:30 This 64 yrs old Male presents to ER via Wheelchair with complaints of jr8 Shortness Of Breath, General Weakness. 09:30 The patient has shortness of breath at rest. Onset: The symptoms/episode began/occurred jr8 gradually, 2 week(s) ago. Duration: The symptoms are continuous. The patient's shortness of breath is aggravated by walking. Associated signs and symptoms: Pertinent positives: general weakness . Severity of symptoms: At their worst the symptoms were moderate in the emergency department the symptoms are unchanged. The patient has experienced similar episodes in the past. The patient has not recently seen a physician. Patient with history of cirrhosis of the liver. Family stated that he is becoming more frail. Stated that he is not eating well because is abdomen is so full and now is feeling short of breath. Very fatigued and weak as well. Not able to get around without assistance . Historical: - Allergies: 08:26 PENICILLINS; iw - Home Meds: 08:26 furosemide 40 mg Oral tab 1 tab once daily [Active]; spironolactone 100 mg Oral tab 1 iw tab once daily [Active]; Xifaxan oral oral [Active]; - PMHx: 08:26 Cirrhosis; fatty liver; iw - PSHx: 08:37 None; iw - Immunization history:: Adult Immunizations up to date. - Coronavirus screen:: The patient has NOT traveled to [place] in the past 14 days. Proceed with normal triage process as indicated. - Social history:: Smoking status: unknown. - Ebola Screening: : Patient negative for fever greater than or equal to 101.5 degrees Fahrenheit, and additional compatible Ebola Virus Disease symptoms Patient denies exposure to infectious person Patient denies travel to an Ebola-affected area in the 21 days before illness onset No symptoms or risks identified at this time. ROS: 09:30 Eyes: Negative for injury, pain, redness, and discharge, ENT: Negative for injury, jr8 pain, and discharge, Neck: Negative for injury, pain, and swelling, Cardiovascular: Negative for chest pain, palpitations, and edema, Back: Negative for injury and pain, MS/Extremity: Negative for injury and deformity, Skin: Negative for injury, rash, and discoloration, Neuro: Negative for headache, weakness, numbness, tingling, and seizure. 09:30 Constitutional: Positive for fever, malaise. 09:30 Respiratory: Positive for dyspnea on exertion, shortness of breath. 09:30 Abdomen/GI: Positive for abdominal distension, Negative for abdominal pain, nausea, vomiting, and diarrhea, abdominal cramps, hematemesis, black/tarry stool, rectal pain, rectal bleeding, bowel incontinence, flatulence. Exam: 09:30 Eyes: Pupils equal round and reactive to light, extra-ocular motions intact. Lids and jr8 lashes normal. Conjunctiva and sclera are non-icteric and not injected. Cornea within normal limits. Periorbital areas with no swelling, redness, or edema. ENT: Nares patent. No nasal discharge, no septal abnormalities noted. Tympanic membranes are normal and external auditory canals are clear. Oropharynx with no redness, swelling, or masses, exudates, or evidence of obstruction, uvula midline. Mucous membranes moist. Neck: Trachea midline, no thyromegaly or masses palpated, and no cervical lymphadenopathy. Supple, full range of motion without nuchal rigidity, or vertebral point tenderness. No Meningismus. Cardiovascular: Regular rate and rhythm with a normal S1 and S2. No gallops, murmurs, or rubs. Normal PMI, no JVD. No pulse deficits. Back: No spinal tenderness. No costovertebral tenderness. Full range of motion. MS/ Extremity: Pulses equal, no cyanosis. Neurovascular intact. Full, normal range of motion. Neuro: Awake and alert, GCS 15, oriented to person, place, time, and situation. Cranial nerves II-XII grossly intact. Motor strength 5/5 in all extremities. Sensory grossly intact. Cerebellar exam normal. Normal gait. 09:30 Constitutional: The patient appears alert, awake, frail. 09:30 Respiratory: the patient does not display signs of respiratory distress, Respirations: normal, symetrical, no use of accessory muscles, no grunting, no evidence of nasal flaring, no prolonged exhalations, no pursed lip breathing, no retractions, no shallow respirations, no splinting, no tachypnea, Breath sounds: decreased breath sounds, that are mild, are located in both bases. 09:30 Abdomen/GI: Inspection: distension, that is moderate, Bowel sounds: active, all quadrants, Palpation: soft, in all quadrants, nontender, in all quadrants, Liver: is enlarged. 09:30 Skin: Appearance: Color: jaundiced, Temperature: normal temperature, Moisture: dry. Vital Signs: 08:27 BP 106 / 77; Pulse 95; Resp 20 S; Temp 97.7; Pulse Ox 98% on R/A; iw 09:36 BP 109 / 72; Pulse 90; Resp 18; Pulse Ox 99% ; ll1 10:55 BP 94 / 71; Pulse 94; Resp 18; Pulse Ox 96% on R/A; ll1 12:15 BP 112 / 69; Pulse 90; Resp 18; Pulse Ox 97% on R/A; ll1 14:00 BP 108 / 72; Pulse 87; Resp 19; Temp 97.5; Pulse Ox 99% on R/A; ll1 14:00 BP 107 / 77; Pulse 88; Resp 18; Pulse Ox 99% ; ll1 MDM: 08:28 Patient medically screened. jr8 12:15 Data reviewed: vital signs, nurses notes, lab test result(s), radiologic studies, plain jr8 films. Data interpreted: Pulse oximetry: on room air is 97 %. Interpretation: normal. Counseling: I had a detailed discussion with the patient and/or guardian regarding: the historical points, exam findings, and any diagnostic results supporting the discharge/admit diagnosis, lab results, radiology results, the need for further work-up and treatment in the hospital. Physician consultation: Rudy Castro MD was called at 12:16, was contacted at 12:16, regarding consult, patient's condition, and will see patient in inpatient room. ED course: Dr. Ly admitting patient and has seen patient in ED. 10/02 08:29 Order name: Basic Metabolic Panel; Complete Time: 11:24 10/02 08:29 Order name: CBC with Diff 10/02 08:29 Order name: Creatinine for Radiology; Complete Time: 09:34 10/02 08:29 Order name: Hepatic Function; Complete Time: 11:24 8 10/02 08:29 Order name: Lipase; Complete Time: 11:24 [facility] 10/02 08:29 Order name: AMMONIA; Complete Time: 10:57 [facility] 10/02 08:29 Order name: IV Saline Lock; Complete Time: 08:38 10/02 08:29 Order name: Magnesium; Complete Time: 11:24 [facility] 10/02 08:29 Order name: Protime (+inr); Complete Time: 10:42 [facility] 10/02 08:29 Order name: Ptt, Activated; Complete Time: 10:42 [facility] 10/02 08:29 Order name: XRAY Chest (1 view); Complete Time: 10:14 [facility] 10/02 11:00 Order name: Manual Differential; Complete Time: 11:24 EDND 10/02 08:29 Order name: Labs collected and sent; Complete Time: 08:38 [facility] 10/02 08:49 Order name: Labs - recollect needed: recollect coag,c7,ammonia; Complete Time: 13:13 10/02 08:58 Order name: Labs - recollect needed: recollect cbc; Complete Time: 13:12 10/02 09:53 Order name: Labs - recollect needed: recollect again; Complete Time: 13:12 bd Administered Medications: 08:47 Drug: NS 0.9% 1000 ml Route: IV; Rate: 1000 ml; Site: right forearm; ll1 10:32 Follow up: Response: No adverse reaction; IV Status: Completed infusion ll1 12:16 Drug: Albumin 25 grams Volume: 100 ml; Route: IVPB; Site: right antecubital; ll1 13:13 Follow up: Response: No adverse reaction; IV Status: Completed infusion ll1 Disposition: 15:49 Co-signature as Attending Physician, Néstor Spivey MD I agree with the assessment and kdr plan of care. Disposition: 10/02/19 12:17 Hospitalization ordered by Дмитрий Ly for Observation. Preliminary diagnosis are Dehydration, Hyponatremia, Alcoholic cirrhosis of liver with ascites, Pleural effusion in conditions classified elsewhere. - Bed requested for Telemetry/MedSurg (observation). - Status is Observation. ll1 - Condition is Stable. - Problem is new. - Symptoms have improved. Signatures: Dispatcher [employer] EDND Krystle Addison Diana RN RN dw Néstor Spivey MD MD kdr Williams, Irene, RN RN Leonel Roa PA PA jr8 Madeline Dawson RN RN ll1 Corrections: (The following items were deleted from the chart) 13:04 12:17 Hospitalization Ordered by Дмитрий Aliyah for Observation. Preliminary bd diagnosis is Dehydration; Hyponatremia; Alcoholic cirrhosis of liver with ascites; Pleural effusion in conditions classified elsewhere. Bed requested for Telemetry/MedSurg (observation). Status is Observation. Condition is Stable. Problem is new. Symptoms have improved. jr8 13:05 13:04 10/02/2019 12:17 Hospitalization Ordered by [facility] for Observation. dw Preliminary diagnosis is Dehydration; Hyponatremia; Alcoholic cirrhosis of liver with ascites; Pleural effusion in conditions classified elsewhere. Bed requested for Telemetry/MedSurg (observation). Status is Observation. Condition is Stable. Problem is new. Symptoms have improved. bd 15:09 13:05 10/02/2019 12:17 Hospitalization Ordered by [facility] for Observation. ll1 Preliminary diagnosis is Dehydration; Hyponatremia; Alcoholic cirrhosis of liver with ascites; Pleural effusion in conditions classified elsewhere. Bed requested for Telemetry/MedSurg (observation). Status is Observation. Condition is Stable. Problem is new. Symptoms have improved. dw
--- NOTE | 2019-10-02 13:48 | ER ---
Nurse's Notes [facility] Name: Papa Del Castillo Age: 64 yrs Sex: Male : 1955 Arrival Date: 10/02/2019 Time: 08:15 Bed 6 Private MD: Diagnosis: Dehydration;Hyponatremia;Alcoholic cirrhosis of liver with ascites;Pleural effusion in conditions classified elsewhere Presentation: 10/02 08:27 Presenting complaint: Patient states: has hx of cirrhosis, has been increasingly SOB iw and weak over past few weeks. Transition of care: patient was not received from another setting of care. Onset of symptoms was September 16, 2019. Risk Assessment: Do you want to hurt yourself or someone else? Patient reports no desire to harm self or others. Initial Sepsis Screen: Does the patient meet any 2 criteria? No. Patient's initial sepsis screen is negative. Does the patient have a suspected source of infection? No. Patient's initial sepsis screen is negative. Care prior to arrival: None. 08:27 Method Of Arrival: Wheelchair iw 08:27 Acuity: FINA 3 iw Triage Assessment: 09:01 Respiratory: the patient has mild shortness of breath. ll1 Historical: - Allergies: 08:26 PENICILLINS; iw - Home Meds: 08:26 furosemide 40 mg Oral tab 1 tab once daily [Active]; spironolactone 100 mg Oral tab 1 iw tab once daily [Active]; Xifaxan oral oral [Active]; - PMHx: 08:26 Cirrhosis; fatty liver; iw - PSHx: 08:37 None; iw - Immunization history:: Adult Immunizations up to date. - Coronavirus screen:: The patient has NOT traveled to [place] in the past 14 days. Proceed with normal triage process as indicated. - Social history:: Smoking status: unknown. - Ebola Screening: : Patient negative for fever greater than or equal to 101.5 degrees Fahrenheit, and additional compatible Ebola Virus Disease symptoms Patient denies exposure to infectious person Patient denies travel to an Ebola-affected area in the 21 days before illness onset No symptoms or risks identified at this time. Screenin:54 Abuse screen: Denies threats or abuse. Nutritional screening: Has had N/V for 3 or more ll1 days Unable to eat well due to ascites. Tuberculosis screening: No symptoms or risk factors identified. Fall Risk Fall in past 12 months (25 points). Secondary diagnosis (15 points) impaired mobility, cirrhosis with ascites. IV access (20 points). Ambulatory Aid- Crutches/Cane/Walker (15 pts). Gait- Weak (10 pts.). Mental Status- Oriented to own ability (0 pts). Total Smith Fall Scale indicates High Risk Score (45 or more points). Sepsis Screening: . Infection: Patient has no suspected or documented infection. Exposure risk/Travel Screening: None identified. Assessment: 08:48 General: Appears uncomfortable, ill, Behavior is calm, cooperative. Pain: Complains of ll1 pain in right upper quadrant, left upper quadrant, right lower quadrant, left lower quadrant and abdomen diffusely Pain currently is 8 out of 10 on a pain scale. Quality of pain is described as aching, Pain began gradually. Neuro: No deficits noted. Reports weakness in Generalized Denies. Cardiovascular: Denies chest pain. Cardiovascular: Reports shortness of breath, Denies. Respiratory: Reports shortness of breath at rest Airway is patent Trachea midline Respiratory effort is unlabored, States SOB. O2 sat 98% RA Breath sounds are clear. GI: Abdomen is round noted to have ascites, Bowel sounds present X 4 quads. Abdomen is tender to palpation X 4 quads. Hard, full Reports lower abdominal pain, upper abdominal pain, bloating, intolerance of food, nausea. : No deficits noted. Musculoskeletal: Reports weakness in Generalized body weakness. 09:39 Reassessment: No changes from previously documented assessment. Patient and/or family ll1 updated on plan of care and expected duration. Pain level reassessed. Patient is alert, oriented x 3, equal unlabored respirations, skin warm/dry/pink. Patient states symptoms have not improved. Requesting pain medication. PA aware.. 11:04 Reassessment: No changes from previously documented assessment. Patient and/or family ll1 updated on plan of care and expected duration. Pain level reassessed. Patient is alert, oriented x 3, equal unlabored respirations, skin warm/dry/pink. Waiting on lab results. 12:05 Reassessment: No changes from previously documented assessment. Patient and/or family ll1 updated on plan of care and expected duration. Pain level reassessed. Patient is alert, oriented x 3, equal unlabored respirations, skin warm/dry/pink. 13:05 Reassessment: No changes from previously documented assessment. Patient and/or family ll1 updated on plan of care and expected duration. Pain level reassessed. Patient is alert, oriented x 3, equal unlabored respirations, skin warm/dry/pink. Currently calling report to 2nd floor. 14:10 Reassessment: No changes from previously documented assessment. Patient and/or family ll1 updated on plan of care and expected duration. Pain level reassessed. Patient is alert, oriented x 3, equal unlabored respirations, skin warm/dry/pink. 15:07 Cardiovascular: Rhythm is regular. ll1 Vital Signs: 08:27 BP 106 / 77; Pulse 95; Resp 20 S; Temp 97.7; Pulse Ox 98% on R/A; iw 09:36 BP 109 / 72; Pulse 90; Resp 18; Pulse Ox 99% ; ll1 10:55 BP 94 / 71; Pulse 94; Resp 18; Pulse Ox 96% on R/A; ll1 12:15 BP 112 / 69; Pulse 90; Resp 18; Pulse Ox 97% on R/A; ll1 14:00 BP 108 / 72; Pulse 87; Resp 19; Temp 97.5; Pulse Ox 99% on R/A; ll1 14:00 BP 107 / 77; Pulse 88; Resp 18; Pulse Ox 99% ; ll1 ED Course: 08:15 Patient arrived in ED. as 08:15 Inserted saline lock: 22 gauge in right forearm, using aseptic technique. Blood ll1 collected. 08:19 Madeline Dawson, SUZY is Primary Nurse. ll1 08:27 Arm band placed on. iw 08:28 Leonel Roa PA is PHCP. jr8 08:28 Néstor Spivey MD is Attending Physician. jr8 08:28 Triage completed. iw 08:46 XRAY Chest (1 view) In Process Unspecified. EDMS 08:56 Patient has correct armband on for positive identification. Allergy band placed. Fall ll1 risk band placed. Placed in gown. Bed in low position. Call light in reach. Side rails up X2. Pulse ox on. NIBP on. Door closed. Lights dimmed. Warm blanket given. Pillow given. Head of bed elevated. 09:44 Pulled up in bed. No further needs or requests at this time. ll1 10:10 Head of bed elevated. moved up in bed again. 1 12:16 Дмитрий Ly DO is Hospitalizing Provider. jr8 15:07 No provider procedures requiring assistance completed. Patient admitted, IV remains in [address] Administered Medications: 08:47 Drug: NS 0.9% 1000 ml Route: IV; Rate: 1000 ml; Site: right forearm; 1 10:32 Follow up: Response: No adverse reaction; IV Status: Completed infusion 1 12:16 Drug: Albumin 25 grams Volume: 100 ml; Route: IVPB; Site: right antecubital; ll1 13:13 Follow up: Response: No adverse reaction; IV Status: Completed infusion [facility] Outcome: 12:17 Decision to Hospitalize by Provider. jr8 15:08 Admitted to Med/surg accompanied by tech, via wheelchair, room 225, Report called to [facility] Gilda Gibson 15:08 Condition: stable 15:08 Instructed on the need for admit. 15:09 Patient left the ED. [facility] Signatures: Dispatcher [employer] Martine Diaz Irene, RN RN Leonel Roa PA PA 8 Madeline Dawson RN RN [facility]
[2019-10-02] MEDS ORDERED: ONDANSETRON 4 MG/2 ML VIAL IV PRN (15:43)
[2019-10-02] MEDS ORDERED: ACETAMINOPHEN 500 MG TAB PO PRN (15:43)
[2019-10-02 16:30] LABS: Ferritin 337.1 ng/mL (26-388)
[2019-10-02] MEDS: FUROSEMIDE 40 MG TABLET PO SCH (17:17)
[2019-10-02] MEDS: SODIUM CHLORIDE 1 GM TAB PO SCH (17:17)
[2019-10-02] MEDS ORDERED: HEPARIN 5000 UNIT/ML 1 ML VIAL SQ SCH (21:00)
[2019-10-02] MEDS ORDERED: POTASSIUM CL SA 10 MEQ TAB PO ONE (21:00)
[2019-10-02] MEDS: SPIRONOLACTONE 25 MG TABLET PO SCH (21:09)
[2019-10-02] MEDS: FAMOTIDINE 20 MG TAB PO SCH (21:09)
[2019-10-02] MEDS: Rifaximin 550 MG Tab PO SCH (21:10)
[2019-10-02] MEDS ORDERED: ALBUTEROL 2.5 MG/3 ML NEB SOL NEB PRN (22:06)
[2019-10-03 01:25] LABS: Urine Appearance CLEAR; Urine Bilirubin NEGATIVE (NEG); Urine Blood NEGATIVE (NEG); Urine Color YELLOW; Urine Glucose NEGATIVE (NEG); Urine Protein NEGATIVE (NEG); Urine Specific Gravity <=1.005 (1.005-1.030); Urine pH 6.5 (5.0-7.0)
[2019-10-03 01:36] LABS: Urine Microscopic Reflex NO UMIC
[2019-10-03 02:21] VITALS: O2SAT 95
[2019-10-03 04:53] VITALS: BMI 16.0
[2019-10-03] MEDS: SODIUM CHLORIDE 1 GM TAB PO SCH (08:00)
--- NOTE | 2019-10-03 08:00 | RAD REPORT ---
EXAM DESCRIPTION: Kate Pa And Lat (2 Views)10/03/2019 5:43 am CLINICAL HISTORY: Pleural effusion COMPARISON: October 02 FINDINGS: No significant change in small to moderate left and small right pleural effusions with bi basilar atelectasis Upper lobes are clear. Heart is normal size
[2019-10-03] MEDS: FUROSEMIDE 40 MG TABLET PO SCH (09:00)
[2019-10-03] MEDS: Rifaximin 550 MG Tab PO SCH (09:00)
[2019-10-03] MEDS: SPIRONOLACTONE 25 MG TABLET PO SCH (09:00)
[2019-10-03] MEDS ORDERED: THIAMINE HCL 100 MG TABLET PO SCH (09:00)
[2019-10-03] MEDS: FAMOTIDINE 20 MG TAB PO SCH (09:00)
[2019-10-03] MEDS ORDERED: FOLIC ACID 1 MG TABLET PO SCH (09:00)
--- NOTE | 2019-10-03 11:27 | RAD REPORT ---
EXAM DESCRIPTION: US - Paracentesis Proc Guidance - 10/03/2019 10:34 am CLINICAL HISTORY: Liver disease with ascites FINDINGS: The risks, benefits and alternatives to the procedure were explained to the patient and in formed consent obtained. The skin and subcutaneous tissues were anesthetized with Lidocaine. Under sonographic guidance an 8 F rench catheter was placed into the right lower quadrant. 2 liters of yellow fluid was removed and sen t to the lab. The patient experienced no immediate complication. IMPRESSION: Paracentesis
[2019-10-03] MEDS: ALBUMIN HUMAN 25% 100 ML IV SCH ×2 (11:32→12:12)
[2019-10-03 11:41] LABS: Absolute Lymphocytes (CBC) 0.4 K/uL (0.7-4.9); Basophils % 0.3 % (0-1.3); Hematocrit 34.8 % (39.6-49.0); Lymphocytes % 3.5 % (15.3-44.8); MPV 6.6 fL (7.6-11.3); RBC Red Blood Cell Count 3.27 M/uL (4.33-5.43)
[2019-10-03 11:52] LABS: ALT/SGPT 25 U/L (12-78); AST/SGOT 39 U/L (15-37); Albumin 2.7 g/dL (3.4-5.0); Alkaline Phosphatase 112 U/L (45-117); BUN Blood Urea Nitrogen 7 mg/dL (7-18); Bicarbonate 26 mmol/L (21-32); Bilirubin Total 10.3 mg/dL (0.2-1.0); Glucose Level 121 mg/dL (74-106); Phosphorus 2.4 mg/dL (2.5-4.9); Potassium 3.7 mmol/L (3.5-5.1); Protein, Total 6.4 g/dL (6.4-8.2); Sodium Level 125 mmol/L (136-145); Uric Acid 5.8 mg/dL (3.5-7.2)
--- NOTE | 2019-10-03 11:53 | P.DS ---
Admission Date: 10/02/19 Discharge Date: 10/03/19 Primary Care Provider: none; Darlyn Castro Disposition: ROUTINE DISCHARGE Discharge Condition: GOOD Reason for Admission: Fatigue, shortness of breath Consultations: GI-Dr. Castro Nephrology-Dr. Aquino Procedures: Follow up CXR: COMPARISON: October 02 FINDINGS: No significant change in small to moderate left and small right pleural effusions with bibasilar atelectasis Upper lobes are clear. Heart is normal size Paracentesis: FINDINGS: The risks, benefits and alternatives to the procedure were explained to the patient and informed consent obtained. The skin and subcutaneous tissues were anesthetized with Lidocaine. Under sonographic guidance an 8 Occitan catheter was placed into the right lower quadrant. 2 liters of yellow fluid was removed and sent to the lab. The patient experienced no immediate complication. IMPRESSION: Paracentesis Medical Problem List: Fatigue, shortness of breath secondary to ascites complicated with chronic bilateral pleural effusion related to alcoholic liver cirrhosis status post paracentesis Hyponatremia likely chronic Former alcohol use Elevated liver function with hyperbilirubinemia secondary to alcoholic liver cirrhosis COPD Brief History of Present Illness: 64-year-old male with history of alcoholic cirrhosis presented to emergency room with increased fatigue and shortness of breath. Patient is seen by GI locally. Patient has alcoholic cirrhosis. He has quit alcohol since June 2019. Patient takes diuretic therapy. Over the past several days he has been having increased fatigue with poor appetite. He denies any significant chest pain, fever, chills. Patient came to the ER for further evaluation. In the ER, vital signs stable. White count 10.3, hemoglobin 12.3. Platelet count 210. Sodium 123, potassium 3.7. Venous 7, creatinine 0.8 with a GFR greater than 90. Chest x-ray showed follow pleural effusions. Total bilirubin 8.3, AST 45. Lipase negative. Patient was admitted for further evaluation and treatment. When I saw the patient ER, he was jaundiced. He did not appear in any respiratory distress Patient with ascites. Last paracentesis done probably about 1-2 months ago. He is scheduled to see hepatology at [facility] next month. Hospital Course: Patient presented with fatigue, shortness of breath secondary to ascites. Patient also has chronic bilateral pleural effusions. Patient with underlying alcoholic liver cirrhosis. Patient has been taking diuretic therapy. Patient was admitted for further evaluation and treatment. Patient required radiology assisted paracentesis to help with his shortness of breath and ascites. 2 L removed. Pathology sent. Patient feels much improved. He is without significant shortness of breath. No need for further intervention. Case discussed with his GI specialist-Dr. Castro. Vital signs stable. Patient will be discharged home. Patient is unfunded and does not qualify for home health and physical therapy. Social work will provide information on future assistance. At discharge patient will continue with diuresis-Lasix 40 mg 1 pill twice daily and Aldactone 100 mg twice daily. Patient will continue with a 1500 cc per day fluid restriction and low-salt diet. Recommend to monitor his weight daily. If his weight increases by more than 5 lb he is to contact his PCP or GI specialists for consideration of another paracentesis which can be done as an outpatient. Patient is to see hepatology [facility] next Monday. They are to consider liver transplant. If he is not a candidate for liver transplant. His condition is likely to decline. Patient would be a candidate for hospice at that time if Liver Transplant is not considered. Patient with chronic hyponatremia. Case discussed with nephrology. No need for further intervention. This can be monitored as an outpatient. Patient with elevated liver function with hyperbilirubinemia secondary to alcoholic liver cirrhosis. Patient will follow up with GI as an outpatient. He is to follow up with hepatology [facility] for consideration of liver transplant in the near future. Patient with underlying COPD. At discharge he will continue with his inhalers that he uses at home. Vital Signs/Physical Exam: Temp Pulse Resp BP Pulse Ox 97.9 F 84 15 100/61 98 10/03/19 08:00 10/03/19 08:00 10/03/19 08:00 10/03/19 08:10/03/19 08:00 General: Alert, Cooperative HEENT: Atraumatic, Scleral icterus Neck: Supple Respiratory: Diminished (to bases but stable.) Cardiovascular: Normal pulses, Regular rate/rhythm Gastrointestinal: Normal bowel sounds, Soft and benign, Non-distended Neurological: Normal speech, Normal strength at 5/5 x4 extr, Normal tone, Normal affect, Other (muscle wasting.) Laboratory Data at Discharge: WBC 11.4 K/uL (4.3-10.9) H 10/03/19 11:03 Hgb 12.6 g/dL (13.6-17.9) L 10/03/19 11:03 Hct 34.8 % (39.6-49.0) L 10/03/19 11:03 Plt Count 252 K/uL (152-406) 10/03/19 11:03 PT 16.8 SECONDS (9.5-12.5) H 10/02/19 10:20 INR 1.44 10/02/19 10:20 APTT 34.0 SECONDS (24.3-36.9) 10/02/19 10:20 Sodium 123 mmol/L (136-145) L 10/02/19 10:20 Potassium 3.7 mmol/L (3.5-5.1) 10/02/19 10:20 BUN 7 mg/dL (7-18) 10/02/19 10:20 Creatinine 0.68 mg/dL (0.55-1.3) 10/02/19 10:20 Glucose 90 mg/dL (74-106) 10/02/19 10:20 Magnesium 1.9 mg/dL (1.8-2.4) 10/02/19 10:20 Total Bilirubin 8.3 mg/dL (0.2-1.0) H* 10/02/19 10:20 AST 45 U/L (15-37) H 10/02/19 10:20 ALT 24 U/L (12-78) 10/02/19 10:20 Alkaline Phosphatase 107 U/L (45-117) 10/02/19 10:20 Lipase 207 U/L (73-393) 10/02/19 10:20 Home Medications: Furosemide [Lasix*] 40 mg PO BID 10/02/19 Rifaximin [Xifaxan] 1 tab PO BID 10/02/19 Spironolactone [Aldactone*] 100 mg PO BID 10/02/19 Folic Acid 1 mg PO DAILY #90 tablet 10/03/19 Thiamine HCl [Vitamin B-1*] 100 mg PO DAILY #90 tablet 10/03/19 New Medications: Folic Acid 1 mg PO DAILY #90 tablet Thiamine HCl [Vitamin B-1*] 100 mg PO DAILY #90 tablet Patient Discharge Instructions: 1. Patient will follow up with GI as an outpatient. Recommend establish care with a PCP in the area to establish care. 2. Patient presented with fatigue, shortness of breath secondary to ascites. Patient also has chronic bilateral pleural effusions. Patient with underlying alcoholic liver cirrhosis. Patient has been taking diuretic therapy. Patient was admitted for further evaluation and treatment. Patient required radiology assisted paracentesis to help with his shortness of breath and ascites. 2 L removed. Pathology sent. Patient feels much improved. He is without significant shortness of breath. No need for further intervention. Case discussed with his GI specialist-Dr. Castro. Vital signs stable. Patient will be discharged home. Patient is unfunded and does not qualify for home health and physical therapy. Social work will provide information on future assistance. At discharge patient will continue with diuresis-Lasix 40 mg 1 pill twice daily and Aldactone 100 mg twice daily. Patient will continue with a 1500 cc per day fluid restriction and low-salt diet. Recommend to monitor his weight daily. If his weight increases by more than 5 lb he is to contact his PCP or GI specialists for consideration of another paracentesis which can be done as an outpatient. Patient is to see hepatology [facility] next Monday. They are to consider liver transplant. If he is not a candidate for liver transplant. His condition is likely to decline. Patient would be a candidate for hospice at that time if Liver Transplant is not considered. 3. Patient with chronic hyponatremia. Case discussed with nephrology. No need for further intervention. This can be monitored as an outpatient. 4. Patient with elevated liver function with hyperbilirubinemia secondary to alcoholic liver cirrhosis. Patient will follow up with GI as an outpatient. He is to follow up with hepatology [facility] for consideration of liver transplant in the near future. 5. Patient with underlying COPD. At discharge he will continue with his inhalers that he uses at home. Diet: AHA Activity: Fall precautions Time spent managing pt's care (in minutes): 55
[2019-10-03] MEDS ORDERED: POTASSIUM CL SA 10 MEQ TAB PO ONE (12:01)
[2019-10-03 12:08] LABS: Anisocytosis SLIGHT; Blood Morphology Comment NOTED (NOT SEEN); Macrocytosis 1+; Platelet Estimate ADEQ
[2019-10-03] MEDS ORDERED: POTASS/SODIUM PHOSPHATE 1 PKT POWD.PACK PO SCH (13:00)
[2019-10-03 14:09] VITALS: BP 121/72; TEMP 97.1
--- NOTE | 2019-10-03 14:40 | CON ---
Date of Consultation: 10/03/2019 Reason For Consultation: Hyponatremia, fluid management. History Of Present Illness: This is a pleasant 64-year-old gentleman with significant past medical h istory of alcohol cirrhosis, hypertension, patient came to the hospital, complaining from nausea, vom iting, cannot keep anything in his intake. With the increased abdominal girth, patient had also shor tness of breath. No leg swelling. Patient admits that he has cirrhosis secondary to alcohol. No ot her hepatitis. No recent change in his medication. Upon presentation to the hospital, found to have sodium down to 123. Kidney function was normal. Patient was started again on his diuresis. Patien t to undergo paracentesis today goaling for 3 L fluid removal. Past Medical History: 1.Hypertension. 2.Cirrhosis secondary to alcoholic liver disease. Allergies: PENICILLIN. Home Medications: Mirtazapine, tramadol, Lasix, lactulose, spironolactone. Family History: Positive for hypertension. Social History: Denies smoking. Ex alcohol. Denies drug abuse. Review of Systems: Head and Neck: No red eye. No ear pain. GI: Nausea, vomiting, increased abdominal girth. : No polyuria. No dysuria. No hematuria. Erp Engineer: Not applicable. Respiratory: Has shortness of breath. Cardiovascular: No leg swelling. Endocrine: No polydipsia. Skin: No rash. Neuro: Weakness. Musculoskeletal: Generalized fatigue. Physical Examination: Vital Signs: Blood pressure 100/61, pulse of 84. Afebrile. Chest: Clear to auscultation. Heart: S1, S2. Systolic murmur. Abdomen: Ascites. Distended. Extremities: No edema. Neuro: Alert. No focal. Laboratory Data: WBC 10.3, H and H are 12.3/34.1, platelets of 210. Sodium 123, potassium 3.7, bica rb 25, BUN 7, creatinine 0.6, calcium 7.9. Magnesium 1.9. Iron saturation 92, ferritin 337, calcium 7.9. Albumin 2.1. Corrected calcium is 9.5. Current Medications: The patient on include folic acid, Lasix 40 b.i.d., Tylenol, spironolactone 50 b.i.d., rifaximin, Pepcid, KCl. Assessment And Plan: 1.Hyponatremia secondary to dilutional secondary to cirrhosis. I am going to continue on the Lasix p.o. with the spironolactone. We will hold on the salt tablet for the time being and we will follow up. 2.Hypokalemia. Continue spironolactone. We will supplement. 3.Cirrhosis with ascites, as by primary. Patient cleared from the renal standpoint for discharge yissel ji. CHANDRAKANT/CARA Voice ID: [id number] Report ID: [id number]
[2019-10-03] MEDS ORDERED: ENSURE HIGH PROTEIN 237 ML CAN PO SCH (21:00)
== END 2019-10-03 14:37 | disposition home or self-care (01) | DRG 433 ==
LOC: ER 08:14 → 2ND 12:42 → OBSVTOIN 14:41
PROVIDERS: ADMIT Family Medicine; ATTEND Family Medicine
PROC: 0W9G3ZX Drainage of Peritoneal Cavity, Percutaneous Approach, Diagnostic (ICD-10-PCS; principal; 2019-10-03)
DX: K70.31 Alcoholic cirrhosis of liver with ascites (principal); E87.1 Hypo-osmolality and hyponatremia; J90 Pleural effusion, not elsewhere classified; J44.9 Chronic obstructive pulmonary disease, unspecified; E80.6 Other disorders of bilirubin metabolism; F10.21 Alcohol dependence, in remission; Z88.0 Allergy status to penicillin
CPT/HCPCS: 36415; 49083; 71045; 71046; 80048; 80053; 80069; 80076; 81003; 82140; 82533; 82607; 82728; 83540; 83690; 83735; 83930; 83935; 84132; 84300; 84439; 84443; 84466; 84550; 85025; 85610; 85730; 87070; 88108; 88305; 96361; 96365; 99285; G0378; J7030; P9047

== ENCOUNTER 2019-10-14 14:23 | Inpatient (IN) | payer SELFPAY ==
--- OUTSIDE RECORDS SUMMARY | 2019-10-14 14:26 | XMS REPORT ---
:1955 Author Organization [facility] Address [address] Soriano [address] [place] [address] Care Team Providers Name Role Phone Unavailable Unavailable Unavailable Problems This patient has no known problems. Allergies, Adverse Reactions, Alerts This patient has no known allergies or adverse reactions. Medications This patient has no known medications.
--- OUTSIDE RECORDS SUMMARY | 2019-10-14 14:26 | XMS REPORT | Summary of Care ---
:1955 Author Organization [facility] Address [address] [place] [address] Care Team Providers Name Role Phone Jim Britton Primary Care Provider Encounter Details Date Type Department Care Team Description 10/08/2019 Orders Only [facility] Doctor Unassigned, No [address] [facility] [place] [address] [address] [place] [address] Allergies Not on Filedocumented as of this encounter (statuses as of 10/08/2019) Medications Not on filedocumented as of this encounter (statuses as of 10/08/2019) Active Problems Not on filedocumented as of this encounter (statuses as of 10/08/2019) Social History Tobacco Use Types Packs/Day Years Used Date Never Assessed Sex Assigned at Date Recorded Not on file Job Start Date Occupation Industry Not on file Not on file Not on file Travel History Travel Start Travel End No recent travel history available. documented as of this encounter Last Filed Vital Signs Not on filedocumented in this encounter Plan of Treatment Date Type Specialty Care Team Description 10/08/2019 Office Visit Gastroenterology Saskia Cyr PA Arrived [address] [facility] [id number] [place] [address] [phone] Health Maintenance Due Date Last Done Comments HEPATITIS C (HCV) SCREEN 1955 DTaP,Tdap,and Td Vaccines (1 - 02/29/1968 Tdap) COLONOSCOPY 2007 Zoster Recombinant Vaccine 2007 (SHINGRIX) (1 of 2) INFLUENZA VACCINE (#1) 2019 PNEUMOCOCCAL 0-64 YEARS COMBINED Aged Out No longer eligible based on SERIES patient's age to complete this topic documented as of this encounter Procedures Procedure Name Priority Date/Time Associated Diagnosis Comments CONSENT/REFUSAL FOR Routine 10/08/2019 3:18 PM DIAGNOSIS AND TREATMENT CONSUMER SALES REPRESENTATIVE ASSIGNMENT OF BENEFITS Routine 10/08/2019 3:18 PM CONSUMER SALES REPRESENTATIVE documented in this encounter Results Not on filedocumented in this encounter
--- OUTSIDE RECORDS SUMMARY | 2019-10-14 14:27 | XMS REPORT | Summary of Care ---
:1955 Author Organization [facility] Address [address] [place] [address] Care Team Providers Name Role Phone Jim Britton Primary Care Provider Reason for Visit Reason Comments Establish Care Other liver eval. (Routine) Status Reason Specialty Diagnoses / Referred By Referred To Procedures Contact Contact Closed Gastroenterology Diagnoses Alcoholic cirrhosis of liver with ascites Encounter for screening for malignant neoplasm of colon Gastroenterology/Hepatology Jim Britton Procedures CONSULT/REFERRAL GASTROENTEROLOGY CONSULT/REFERRAL HEPATOLOGY [address] [place] [address] Encounter Details Date Type Department Care Team Description 10/08/2019 Office Visit [facility] [place] [facility], Alcoholic cirrhosis of Gastroenterology-KISHA Griffin liver with ascites ston [address] [facility] (Primary Dx) [facility] [id number], [address] [place] [address] Floor [phone] [place], [place] [phone] [address] (Fax) [phone] Allergies Active Allergy Reactions Severity Noted Date Comments Penicillin Swelling 10/08/2019 documented as of this encounter (statuses as of 10/08/2019) Medications Medication Sig Dispensed Refills Start Date End Date Status furosemide 40 mg tablet Take 40 mg by 0 Active mouth daily. SPIRONOLACTONE ORAL Take by mouth. 0 Active rifAXIMin (XIFAXAN) 550 Take 550 mg by 0 Active mg tablet mouth 2 (two) times daily. LACTULOSE ORAL Take by mouth. 0 Active documented as of this encounter (statuses as of 10/08/2019) Active Problems Problem Noted Date Alcoholic cirrhosis of liver with ascites 10/08/2019 documented as of this encounter (statuses as of 10/08/2019) Social History Tobacco Use Types Packs/Day Years Used Date Former Smoker Smokeless Tobacco: Former User Alcohol Use Drinks/Week oz/Week Comments Not Currently Sex Assigned at Date Recorded Not on file Job Start Date Occupation Industry Not on file Not on file Not on file Travel History Travel Start Travel End No recent travel history available. 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, [place] was neg for HCC, he has not had Lbx or EGD PMH-none FH-F 89 Parkinson's, prostate ca; M mid 70s heart dz; sibs UC, prostate ca SH-, lives in [place], retired +etoh abuse, x 35yrs, ivda 80's, no tattoos/body piercing ROS: CONSTITUTIONAL: no fever/chills/night sweats EYES:no vision changes ENT:no epistaxis CV: no chest pain/syncope RESP: no dyspnea/cough GI:no nausea/vomiting/diarrhea/constipation/change bm/melena/hematochezia :no dysuria/hematuria MS: no joint pain, no back pain SKIN: no changes/pruritis/rash NEURO: no seizure hx PSYCH: no depression/anxiety ENDO: no weight change HEME: no bruising/prolong bleeding PE: GEN: no acute distress, in wheelchair SKIN: no jaundice/rash/pallor HEAD: normocephalic, no hair loss EYES: no pallor/icterus MOUTH: tongue wnl, no aphthous mouth NECK:thyroid wnl, no LAD CHEST: no gynecomastia ABD: soft, non-tender, no organomegaly/mass/ascites EXT: no mckeon erythema/c/c/e PSCH: good affect with clear mentation, no asterixis Cirrhosis, decompensated - [facility] US 08/26 Ascites Hyponatremia Etoh dependence w/abstinence >3mos Depression/anorexia Labs r/o other causes of liver dz OSH records reviewed EGD, variceal screening Continue etoh abstinence 2G Na diet Resume lactulose in small, frq doses Continue current meds Consider increasing diuretics after review of today's labs Refer for OLT when funding is available, he plans to seek [employer] ins or apply for Medicaid F/U 3wks documented in this encounter Plan of Treatment Date Type Specialty Care Team Description 11/08/2019 Office Visit Gastroenterology Saskia Cyr PA [id number] [place], [place] [id number] Name Type Priority Associated Diagnoses Order Schedule HEPATITIS B SURFACE LAB Routine Alcoholic cirrhosis of Ordered: 10/08/2019 ANTIBODY liver with ascites ALPHA 1 ANTITRYPSIN LAB Routine Alcoholic cirrhosis of Expected: 10/08/2019 , liver with ascites Expires: 10/07/2020 ALPHA FETOPROTEIN LAB Routine Alcoholic cirrhosis of Expected: 10/08/2019, liver with ascites Expires: 10/07/2020 BASIC METABOLIC PANEL (NA, LAB Routine Alcoholic cirrhosis of Expected: 10/2019, K, CL, CO2, GLUCOSE, BUN, liver with ascites Expires: 10/07/2020 CREATININE, CA) CERULOPLASMIN LAB Routine Alcoholic cirrhosis of Expected: 10/08/2019, liver with ascites Expires: 10/07/2020 FERRITIN SERUM LAB Routine Alcoholic cirrhosis of Expected: 10/08/2019, liver with ascites Expires: 10/07/2020 HEPATIC FUNCTION PANEL LAB Routine Alcoholic cirrhosis of Expected: 2019, ([id number]) (ALB,T.PRO,BILI liver with ascites Expires: 10/07/2020 T,BU/BC,ALT,AST,ALK PHOS) IRON LAB Routine Alcoholic cirrhosis of Expected: 10/08/2019, liver with ascites Expires: 10/07/2020 TOTAL IRON BINDING CAPACITY LAB Routine Alcoholic cirrhosis of Expected: , liver with ascites Expires: 10/07/2020 PROTHROMBIN TIME / INR LAB Routine Alcoholic cirrhosis of Expected: 2019, liver with ascites Expires: 10/07/2020 CBC WITH DIFF LAB Routine Alcoholic cirrhosis of Expected: 10/08/2019, liver with ascites Expires: 10/07/2020 ANTI LKM LAB Routine Alcoholic cirrhosis of Expected: 10/08/2019, liver with ascites Expires: 10/07/2020 ANTI MITOCHONDRIAL ANTIBODY LAB Routine Alcoholic cirrhosis of Expected: , liver with ascites Expires: 10/07/2020 ANTI SMOOTH MUSCLE ANTIBODY LAB Routine Alcoholic cirrhosis of Expected: , liver with ascites Expires: 10/07/2020 ANTI-NUCLEAR ANTIBODY LAB Routine Alcoholic cirrhosis of Expected: 2019, SCREEN liver with ascites Expires: 10/07/2020 HEPATITIS A AB, IGG AND IGM LAB Routine Alcoholic cirrhosis of Expected: , liver with ascites Expires: 10/07/2020 HEPATITIS B SURFACE LAB Routine Alcoholic cirrhosis of Expected: 10/08/2019 , ANTIBODY liver with ascites Expires: 10/07/2020 HEPATITIS B SURFACE ANTIGEN LAB Routine Alcoholic cirrhosis of Expected: , liver with ascites Expires: 10/07/2020 HEPATITIS C VIRUS ANTIBODY LAB Routine Alcoholic cirrhosis of Expected: 10/2019, liver with ascites Expires: 10/07/2020 HIV 1/2 AG-AB WITH REFLEX LAB Routine Alcoholic cirrhosis of Expected: 10/2019, liver with ascites Expires: 10/07/2020 IMMUNOGLOBULIN G A M PANEL LAB Routine Alcoholic cirrhosis of Expected: 10/2019, liver with ascites Expires: 10/07/2020 Health Maintenance Due Date Last Done Comments HEPATITIS C (HCV) SCREEN 1955 DTaP,Tdap,and Td Vaccines (1 - 02/29/1968 Tdap) COLONOSCOPY 2007 Zoster Recombinant Vaccine 2007 (SHINGRIX) (1 of 2) LUNG CANCER SCREEN: Recommended 02/29/2012 for age 55-80 with 30 + pack year history INFLUENZA VACCINE (#1) 2019 PNEUMOCOCCAL 0-64 YEARS COMBINED Aged Out No longer eligible based on SERIES patient's age to complete this topic documented as of this encounter Results Not on filedocumented in this encounter Visit Diagnoses Diagnosis Alcoholic cirrhosis of liver with ascites - Primary Alcoholic cirrhosis of liver documented in this encounter
--- OUTSIDE RECORDS SUMMARY | 2019-10-14 14:27 | XMS REPORT | Summary of Care ---
:1955 Author Organization [facility] Address [address] [place] [address] Care Team Providers Name Role Phone Tobi Jim Primary Care Provider Reason for Visit Reason Comments Abnormal Lab Encounter Details Date Type Department Care Team Description 10/09/2019 Telephone [facility] Saskia Cyr PA Abnormal Lab Gastroenterology-[address] [id number] [place] [address] [place] [phone] [place] [address] Allergies Active Allergy Reactions Severity Noted Date Comments Penicillin Swelling 10/08/2019 documented as of this encounter (statuses as of 10/09/2019) Medications Medication Sig Dispensed Refills Start Date End Date Status furosemide 40 mg tablet Take 40 mg by 0 Active mouth daily. SPIRONOLACTONE ORAL Take by mouth. 0 Active rifAXIMin (XIFAXAN) 550 Take 550 mg by 0 Active mg tablet mouth 2 (two) times daily. LACTULOSE ORAL Take by mouth. 0 Active documented as of this encounter (statuses as of 10/09/2019) Active Problems Problem Noted Date Alcoholic cirrhosis of liver with ascites 10/08/2019 documented as of this encounter (statuses as of 10/09/2019) Social History Tobacco Use Types Packs/Day Years [...] Visit Gastroenterology Saskia Cyr PA [address] [facility] [id number] [place] [address] Health Maintenance Due Date Last Done Comments HEPATITIS C (HCV) SCREEN 1955 PNEUMOCOCCAL 0-64 YEARS COMBINED SERIES (1 of 1 - 1961 PPSV23) DTaP,Tdap,and Td Vaccines (1 - Tdap) 02/29/1968 COLONOSCOPY 2007 Zoster Recombinant Vaccine (SHINGRIX) (1 of 2) 2007 LUNG CANCER SCREEN: Recommended for age 55-80 with 30 + 02/29/2012 pack year history INFLUENZA VACCINE (#1) 2019 documented as of this encounter Results Not on filedocumented in this encounter
--- OUTSIDE RECORDS SUMMARY | 2019-10-14 14:27 | XMS REPORT | Summary of Care ---
:1955 Author Organization [facility] Address [address] [place] [id number] Care Team Providers Name Role Phone Jim Britton Primary Care Provider Reason for Visit Reason Comments Establish Care Other liver eval. (Routine) Status Reason Specialty Diagnoses / Referred By Referred To Procedures Contact Contact Closed Gastroenterology Diagnoses Alcoholic cirrhosis of liver with ascites Encounter for screening for malignant neoplasm of colon Gastroenterology/Hepatology Jim [place] Procedures CONSULT/REFERRAL GASTROENTEROLOGY CONSULT/REFERRAL HEPATOLOGY [address] [place] [id number] Encounter Details Date Type Department Care Team Description 10/08/2019 Office Visit [facility], Alcoholic cirrhosis of Gastroenterology-KISHA Griffin liver with ascites ston [address] [facility] (Primary Dx) [facility] [id number], [address] [place] [address] Floor [phone] [place], [place] [phone] (Fax) [phone] Allergies Active Allergy Reactions Severity Noted Date [...] Comments Blood Pressure 110/76 10/08/2019 3:[address] ATTENDANT Pulse 110 10/08/2019 3:[address] ATTENDANT Temperature 35.9 C (96.6 F) 10/08/2019 3:[address] ATTENDANT Respiratory Rate 16 10/08/2019 3:[address] ATTENDANT Oxygen Saturation - - Inhaled Oxygen Concentration - - Weight 54.4 kg (120 lb) 10/08/2019 3:[address] ATTENDANT Height 177.8 cm (5' 10") 10/08/2019 3:[address] ATTENDANT Body Mass Index 17.22 10/08/2019 3:[address] ATTENDANT documented in this encounter Progress Notes Saskia Cyr PA - 10/08/2019 3:30 PM CSTCase CC: cirrhosis, new patient, Abdirahman Mary M, dx last June when he presented to [facility] ED w/ascites and rectal bleeding, he is currently on spironolactone 200mg/furosemide 80mg/day, and has required 3 therapeutic paracentesis, his liver dz is presumed d/t etoh, he has a long hx daily etoh use and was depressed over 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, [place] was neg for HCC, he has not had Lbx or EGD PMH-none FH-F 89 Parkinson's, prostate ca; M mid 70s heart dz; sibs UC, prostate ca SH-, lives in [place], retired +etoh abuse, x 35yrs, ivda 80's, [...] Gastroenterology Saskia Cyr PA [id number] [place], [place] [id number] Name Type Priority Associated Diagnoses Order Schedule [...] LAB Routine Alcoholic cirrhosis of Expected: 2019, (77555) (ALB,T.PRO,BILI liver with ascites Expires: 10/07/2020 T,BU/BC,ALT,AST,ALK [...]
--- OUTSIDE RECORDS SUMMARY | 2019-10-14 14:27 | XMS REPORT | Summary of Care ---
:1955 Author Organization [facility] Address [address] [place] [id number] Care Team Providers Name Role Phone Jim Britton Primary Care Provider Reason for Visit Reason Comments LAB WORK Auth/Cert Status Reason Specialty Diagnoses / Procedures Referred By Contact Referred To Contact Phlebotomy Diagnoses Alcoholic cirrhosis of liver with ascites Adc Pob Lab Draw Procedures IMMUNOGLOBULIN G A M PANEL Professional Office Building [address] [facility] , [address] [place] [address] Encounter Details Date Type Department Care Team Description 10/09/2019 Vascular Radiologist Visit [facility] Saskia Cyr PA [address] [facility] [id number] [place] [address] Alcoholic cirrhosis Professional Office Pob, Adc Lab Main of liver with ascites Building Phlebotomy Lab Professional Office Building [address] [facility] , [address] [place] [address] Allergies Active Allergy Reactions Severity Noted Date [...] Gastroenterology Saskia Cyr PA [id number] [place] [address] [phone] Name Type Priority Associated Diagnoses Date/Time ALPHA 1 ANTITRYPSIN LAB Routine Alcoholic cirrhosis of 10/09/2019 12:39 PM liver with ascites SOAKER [employer]A WORKER ALPHA FETOPROTEIN LAB Routine Alcoholic cirrhosis of 10/09/2019 12:39 PM liver with ascites SOAKER [employer] WORKER BASIC METABOLIC PANEL (NA, LAB Routine Alcoholic cirrhosis of 10/09/2019 12 :39 PM K, CL, CO2, GLUCOSE, BUN, liver with ascites SOAKER SOD[employer] WORKER CREATININE, CA) CERULOPLASMIN LAB Routine Alcoholic cirrhosis of 10/09/2019 12:39 PM liver with ascites SOAKER [employer] WORKER FERRITIN SERUM LAB Routine Alcoholic cirrhosis of 10/09/2019 12:39 PM liver with ascites SOAKER [employer] WORKER HEPATIC FUNCTION PANEL LAB Routine Alcoholic cirrhosis of 10/09/2019 12:39 PM ([id number]) (ALB,T.PRO,BILI liver with ascites SOAKER SOD[employer] WORKER T,BU/BC,ALT,AST,ALK PHOS) IRON LAB Routine Alcoholic cirrhosis of 10/09/2019 12:39 PM liver with ascites SOAKER [employer] WORKER TOTAL IRON BINDING CAPACITY LAB Routine Alcoholic cirrhosis of 10/09/2019 12:39 PM liver with ascites SOAKER [employer] WORKER PROTHROMBIN TIME / INR LAB Routine Alcoholic cirrhosis of 10/09/2019 12:39 PM liver with ascites SO[employer]ER [employer] WORKER CBC WITH DIFF LAB Routine Alcoholic cirrhosis of 10/09/2019 12:39 PM liver with ascites SO[employer]ER [employer] WORKER ANTI LKM LAB Routine Alcoholic cirrhosis of 10/09/2019 12:39 PM liver with ascites SOAKER [employer] WORKER ANTI MITOCHONDRIAL ANTIBODY LAB Routine Alcoholic cirrhosis of 10/09/2019 12:39 PM liver with ascites SO[employer]ER [employer] WORKER ANTI SMOOTH MUSCLE ANTIBODY LAB Routine Alcoholic cirrhosis of 10/09/2019 12:39 PM liver with ascites SO[employer]ER [employer] WORKER ANTI-NUCLEAR ANTIBODY LAB Routine Alcoholic cirrhosis of 10/09/2019 12:39 PM SCREEN liver with ascites SO[employer]ER [employer] WORKER HEPATITIS A AB, IGG AND IGM LAB Routine Alcoholic cirrhosis of 10/09/2019 12:39 PM liver with ascites [employer]ER [employer] WORKER HEPATITIS B SURFACE ANTIGEN LAB Routine Alcoholic cirrhosis of 10/09/2019 12:39 PM liver with ascites [employer]ER [employer] WORKER HEPATITIS C VIRUS ANTIBODY LAB Routine Alcoholic cirrhosis of 10/09/2019 12 :39 PM liver with ascites SOAKER [employer] WORKER HIV 1/2 AG-AB WITH REFLEX LAB Routine Alcoholic cirrhosis of 10/09/2019 12: 39 PM liver with ascites SOAKER [employer] WORKER IMMUNOGLOBULIN G A M PANEL LAB Routine Alcoholic cirrhosis of 10/09/2019 12 :39 PM liver with ascites SOAKER [employer] WORKER CBC WITH DIFFERENTIAL LAB Routine Alcoholic cirrhosis of 10/09/2019 12:39 PM liver with ascites SOAKER [employer] WORKER Health Maintenance Due Date Last Done Comments [...] Diagnosis Alcoholic cirrhosis of liver with ascites Alcoholic cirrhosis of liver documented in this encounter
[2019-10-14] MEDS ORDERED: NA CHLORIDE 0.9% 1,000 ML ONE ×2 (14:39→16:00)
[2019-10-14 15:54] LABS: Urine Blood NEGATIVE (NEG); Urine Glucose NEGATIVE (NEG); Urine Protein 1+ (NEG); Urine Specific Gravity 1.025 (1.005-1.030)
--- NOTE | 2019-10-14 16:07 | RAD REPORT ---
EXAM DESCRIPTION: Kate Single View10/14/2019 3:39 pm CLINICAL HISTORY: cough COMPARISON: September 2019 FINDINGS: Small bilateral pleural effusions with bibasilar atelectasis The upper lobes appear clear. Heart is normal size
[2019-10-14 16:15] LABS: Protime INR 1.27
[2019-10-14] MEDS ORDERED: CEFTRIAXONE/SWI 1gm 1 GM/10 ML SYR ONE (16:34)
[2019-10-14 16:38] LABS: ALT/SGPT 33 U/L (12-78); AST/SGOT 53 U/L (15-37); Albumin 2.7 g/dL (3.4-5.0); Alkaline Phosphatase 149 U/L (45-117); BUN Blood Urea Nitrogen 14 mg/dL (7-18); Bicarbonate 25 mmol/L (21-32); Bilirubin Direct 3.6 mg/dL (0-0.2); Bilirubin Total 8.3 mg/dL (0.2-1.0); Glucose Level 103 mg/dL (74-106); Lipase 246 U/L (73-393); Magnesium 2.1 mg/dL (1.8-2.4); NT PRO-BNP 601 pg/mL (<125); Potassium 5.1 mmol/L (3.5-5.1); Protein, Total 6.6 g/dL (6.4-8.2); Troponin (Emerg Dept Use Only) < 0.02 ng/mL (0.0-0.045)
[2019-10-14 16:59] LABS: Sodium Level 118 mmol/L (136-145)
[2019-10-14 17:04] LABS: Absolute Lymphocytes (CBC) 0.9 K/uL (0.7-4.9); Basophils % 0.2 % (0-1.3); Lymphocytes % 11.6 % (15.3-44.8); RBC Red Blood Cell Count 2.96 M/uL (4.33-5.43)
--- NOTE | 2019-10-14 17:20 | ER ---
Nurse's Notes [facility] Name: Papa Del Castillo Age: 64 yrs Sex: Male : 1955 Arrival Date: 10/14/2019 Time: 14:29 Bed 26 Private MD: Diagnosis: Weakness;Alcoholic cirrhosis of liver;Ascites;Hypo-osmolality and hyponatremia;Pleural effusion in conditions classified elsewhere Presentation: 10/13 14:32 Chief complaint: EMS states: C/O generalized weakness for a week now. Last paracentesis wh done was about 6-8 weeks ago. Coronavirus screen: The patient has NOT traveled to a country currently being monitored by the [facility] within the last 14 days. Ebola Screen: Patient negative for fever greater than or equal to 101.5 degrees Fahrenheit, and additional compatible Ebola Virus Disease symptoms Patient denies exposure to infectious person. Initial Sepsis Screen: Does the patient meet any 2 criteria? HR > 90 bpm. Does the patient have a suspected source of infection? No. Patient's initial sepsis screen is negative. Risk Assessment: Do you want to hurt yourself or someone else? Patient reports no desire to harm self or others. 14:32 Method Of Arrival: EMS: [facility] 14:32 Acuity: FINA 3 14:40 Onset of symptoms is unknown. 14:40 Care prior to arrival: IV initiated. 20 GA, in the right antecubital area. Historical: - Allergies: 14:34 PENICILLINS; - Home Meds: 14:34 Lactulose Oral [Active]; - PMHx: 14:34 Cirrhosis; fatty liver; - PSHx: 14:34 None; - Immunization history:: Adult Immunizations up to date. - Social history:: Smoking status: Patient/guardian denies using. - Family history:: not pertinent. Screenin:37 Abuse screen: Denies threats or abuse. Denies injuries from another. Nutritional screening: No deficits noted. Tuberculosis screening: No symptoms or risk factors identified. Fall Risk Gait- Weak (10 pts.). Assessment: 14:37 General: Appears in no apparent distress. Behavior is calm, cooperative, appropriate wh for age. Pain: Denies pain. Neuro: Level of Consciousness is awake, alert, obeys commands, Oriented to person, place, time, situation, Appropriate for age Copier Repair Technician are equal bilaterally Moves all extremities. Speech is normal, Facial symmetry appears normal, Pupils are PERRLA, Reports weakness generalized. Cardiovascular: Heart tones S1 S2. Respiratory: Airway is patent Respiratory effort is even, unlabored, Respiratory pattern is regular, symmetrical, Breath sounds are clear bilaterally. GI: Abdomen is round noted to have ascites, Bowel sounds present X 4 quads. Abd is rigid. : No signs and/or symptoms were reported regarding the genitourinary system. EENT: No signs and/or symptoms were reported regarding the EENT system. Derm: Skin is intact. Musculoskeletal: Circulation, motion, and sensation intact. 16:00 Reassessment: Patient appears in no apparent distress at this time. No changes from previously documented assessment. Patient and/or family updated on plan of care and expected duration. Pain level reassessed. Patient is alert, oriented x 3, equal unlabored respirations, skin warm/dry/pink. Pt in bed eyes closed. 17:10 Reassessment: Patient appears in no apparent distress at this time. No changes from previously documented assessment. Patient and/or family updated on plan of care and expected duration. Pain level reassessed. Patient is alert, oriented x 3, equal unlabored respirations, skin warm/dry/pink. Pt in bed eyes closed. 18:20 Reassessment: Patient appears in no apparent distress at this time. No changes from previously documented assessment. Patient and/or family updated on plan of care and expected duration. Pain level reassessed. Patient is alert, oriented x 3, equal unlabored respirations, skin warm/dry/pink. Dr Monk at bedside explaining POC need for admit. 19:40 Reassessment: Patient appears in no apparent distress at this time. No changes from previously documented assessment. Patient and/or family updated on plan of care and expected duration. Pain level reassessed. Patient is alert, oriented x 3, equal unlabored respirations, skin warm/dry/pink. Explained POC need for admit. Vital Signs: 14:32 BP 95 / 69; Pulse 96; Resp 18; Temp 98.2; Pulse Ox 98% ; Weight 58.97 kg; Height 5 ft. 10 in. (177.80 cm); 16:00 BP 112 / 74; Pulse 93; Resp 18; Pulse Ox 100% on R/A; jd3 17:00 BP 117 / 82; Pulse 97; Resp 18; Pulse Ox 100% on R/A; jd3 18:00 BP 106 / 82; Pulse 97; Resp 18; Pulse Ox 100% on R/A; jd3 19:00 BP 115 / 79; Pulse 91; Resp 18; Pulse Ox 100% on R/A; jd3 20:01 BP 114 / 77; Pulse 91; Resp 18; Pulse Ox 98% on R/A; 14:32 Body Mass Index 18.65 (58.97 kg, 177.80 cm) ED Course: 14:29 Patient arrived in ED. 14:30 Mckinley Zamarripa MD is Attending Physician. joseline 14:31 Cody Vickers is Primary Nurse. 14:34 Triage completed. wh 14:40 Arm band placed on left wrist. 14:40 Patient has correct armband on for positive identification. Bed in low position. Call light in reach. Side rails up X 1. Pulse ox on. NIBP on. 14:40 Maintain EMS IV. Dressing intact. Good blood return noted. Site clean \T\ dry. wh 15:13 EKG done, by food equipment service technician. reviewed by Mckinley Zamarripa MD. at1 15:15 Inserted saline lock: 20 gauge in left antecubital area, using aseptic technique. Blood wh collected. 15:59 XRAY Chest (1 view) In Process Unspecified. EDMS 16:41 Lab(s) recollected, by me, sent to lab. T\T\S collected, blood band applied to patient. jp3 16:42 Notified ED physician of a critical lab result(s). chloride 83, total Bili 8.3. ll1 Dallin informed. 17:19 Amor Monk MD is Hospitalizing Provider. joseline 20:00 No provider procedures requiring assistance completed. Patient admitted, IV remains in place. Administered Medications: Discontinued: NS 0.9% 1000 ml IV at 125 ml/hr continuous 15:55 Drug: NS 0.9% 1000 ml Route: IV; Rate: 125 ml/hr; Site: left antecubital; 17:34 Follow up: IV Status: Order to discontinue infusion 17:44 Follow up: Response: No adverse reaction 16:57 Drug: Rocephin 1 grams Route: IV; Rate: per protocol; Site: left antecubital; 17:44 Follow up: Response: No adverse reaction; IV Status: Completed infusion 17:35 Drug: NS 0.9% 500 ml Route: IV; Rate: bolus; Site: left antecubital; 18:41 Follow up: Response: No adverse reaction; IV Status: Completed infusion 17:35 Drug: Thiamine 100 mg Route: IV; Rate: per protocol; Site: left antecubital; 18:41 Follow up: Response: No adverse reaction; IV Status: Completed infusion 18:41 Drug: NS 0.9% 1000 ml Route: IV; Rate: 75 ml/hr; Site: left antecubital; 19:32 Follow up: Response: No adverse reaction; IV Status: Infusion continued upon admission jd3 Outcome: 17:20 Decision to Hospitalize by Provider. [facility] 20:00 Admitted to Tele accompanied by tech, via stretcher, room 425, with chart, Report wh called to Tressa Estrada RN 20:00 Condition: stable 20:00 Instructed on the need for admit. 20:07 Patient left the ED. Signatures: Dispatcher [employer] Mckinley Zapata MD MD cha Gonzales, Amanda, merchandiser retail representative EKG Tat1 Alee, Cody Sam Swan RN RN Pierre Cheung Lynsay, RN RN ll1 Corrections: (The following items were deleted from the chart) 17:16 16:42 Notified ED physician of a critical lab result(s). chloride 83, total bili . Dr. dick1 Dallin informed. ll1 19:45 19:40 Reassessment: Patient appears in no apparent distress at this time. No changes wh from previously documented assessment. Patient and/or family updated on plan of care and expected duration. Pain level reassessed. Patient is alert, oriented x 3, equal unlabored respirations, skin warm/dry/pink. jd3 19:45 18:20 Reassessment: Patient appears in no apparent distress at this time. No changes wh from previously documented assessment. Patient and/or family updated on plan of care and expected duration. Pain level reassessed. Patient is alert, oriented x 3, equal unlabored respirations, skin warm/dry/pink. Md at bedside explaining POC need for admit jd3 19:45 17:10 Reassessment: Patient appears in no apparent distress at this time. No changes wh from previously documented assessment. Patient and/or family updated on plan of care and expected duration. Pain level reassessed. Patient is alert, oriented x 3, equal unlabored respirations, skin warm/dry/pink. jd3 19:45 16:00 Reassessment: Patient appears in no apparent distress at this time. No changes wh from previously documented assessment. Patient and/or family updated on plan of care and expected duration. Pain level reassessed. Patient is alert, oriented x 3, equal unlabored respirations, skin warm/dry/pink. jd3
--- NOTE | 2019-10-14 17:20 | EDPHYS ---
Physician Documentation [facility] Name: Papa Del Castillo Age: 64 yrs Sex: Male : 1955 Arrival Date: 10/14/2019 Time: 14:29 Bed 26 Private MD: ED Physician Mckinley Zamarripa HPI: 10/13 14:50 This 64 yrs old Male presents to ER via EMS with complaints of General joseline Weakness. 14:50 moderate ascites. Onset: The symptoms/episode began/occurred 3 day(s) ago. Severity of joseline symptoms: At their worst the symptoms were mild in the emergency department the symptoms are unchanged. The patient has experienced similar episodes in the past, multiple times. Historical: - Allergies: 14:34 PENICILLINS; - Home Meds: 14:34 Lactulose Oral [Active]; - PMHx: 14:34 Cirrhosis; fatty liver; - PSHx: 14:34 None; - Immunization history:: Adult Immunizations up to date. - Social history:: Smoking status: Patient/guardian denies using. - Family history:: not pertinent. ROS: 14:50 Constitutional: Negative for fever, chills, and weight loss, Eyes: Negative for injury, joseline pain, redness, and discharge, ENT: Negative for injury, pain, and discharge, Neck: Negative for injury, pain, and swelling, Cardiovascular: Negative for chest pain, palpitations, and edema, Respiratory: Negative for shortness of breath, cough, wheezing, and pleuritic chest pain, Back: Negative for injury and pain, : Negative for injury, bleeding, discharge, and swelling, MS/Extremity: Negative for injury and deformity, Psych: Negative for depression, anxiety, suicide ideation, homicidal ideation, and hallucinations, Allergy/Immunology: Negative for hives, rash, and allergies, Endocrine: Negative for neck swelling, polydipsia, polyuria, polyphagia, and marked weight changes, Hematologic/Lymphatic: Negative for swollen nodes, abnormal bleeding, and unusual bruising. 14:50 Abdomen/GI: Positive for abdominal distension. 14:50 MS/extremity: Positive for swelling, of the right leg and left leg. 14:50 Skin: Positive for jaundice. Exam: 14:50 Constitutional: This is a well developed, well nourished patient who is awake, alert, joseline and in no acute distress. Head/Face: Normocephalic, atraumatic. Eyes: Pupils equal round and reactive to light, extra-ocular motions intact. Lids and lashes normal. Conjunctiva and sclera are non-icteric and not injected. Cornea within normal limits. Periorbital areas with no swelling, redness, or edema. ENT: Nares patent. No nasal discharge, no septal abnormalities noted. Tympanic membranes are normal and external auditory canals are clear. Oropharynx with no redness, swelling, or masses, exudates, or evidence of obstruction, uvula midline. Mucous membranes moist. Neck: Trachea midline, no thyromegaly or masses palpated, and no cervical lymphadenopathy. Supple, full range of motion without nuchal rigidity, or vertebral point tenderness. No Meningismus. Chest/axilla: Normal chest wall appearance and motion. Nontender with no deformity. No lesions are appreciated. Cardiovascular: Regular rate and rhythm with a normal S1 and S2. No gallops, murmurs, or rubs. Normal PMI, no JVD. No pulse deficits. Respiratory: Lungs have equal breath sounds bilaterally, clear to auscultation and percussion. No rales, rhonchi or wheezes noted. No increased work of breathing, no retractions or nasal flaring. Back: No spinal tenderness. No costovertebral tenderness. Full range of motion. Male : Normal genitalia with no discharge or lesions. MS/ Extremity: Pulses equal, no cyanosis. Neurovascular intact. Full, normal range of motion. Neuro: Awake and alert, GCS 15, oriented to person, place, time, and situation. Cranial nerves II-XII grossly intact. Motor strength 5/5 in all extremities. Sensory grossly intact. Cerebellar exam normal. Normal gait. Psych: Awake, alert, with orientation to person, place and time. Behavior, mood, and affect are within normal limits. 14:50 Abdomen/GI: Inspection: distension, Bowel sounds: normal, Palpation: soft, Liver: no appreciated palpable abnormalities, Hernia: not appreciated. Vital Signs: 14:32 BP 95 / 69; Pulse 96; Resp 18; Temp 98.2; Pulse Ox 98% ; Weight 58.97 kg; Height 5 ft. wh 10 in. (177.80 cm); 16:00 BP 112 / 74; Pulse 93; Resp 18; Pulse Ox 100% on R/A; jd3 17:00 BP 117 / 82; Pulse 97; Resp 18; Pulse Ox 100% on R/A; jd3 18:00 BP 106 / 82; Pulse 97; Resp 18; Pulse Ox 100% on R/A; jd3 19:00 BP 115 / 79; Pulse 91; Resp 18; Pulse Ox 100% on R/A; jd3 20:01 BP 114 / 77; Pulse 91; Resp 18; Pulse Ox 98% on R/A; wh 14:32 Body Mass Index 18.65 (58.97 kg, 177.80 cm) wh MDM: 14:30 Patient medically screened. [facility] 14:53 Data reviewed: vital signs, nurses notes, lab test result(s), EKG, radiologic studies, joseline plain films. 10/13 14:50 Order name: Basic Metabolic Panel; Complete Time: 17:16 [facility] 10/13 14:50 Order name: CBC with Diff [facility] 10/13 14:50 Order name: LFT's; Complete Time: 17:16 [facility] 10/13 14:50 Order name: Magnesium; Complete Time: 17:16 [facility] 10/13 14:50 Order name: NT PRO-BNP; Complete Time: 17:16 [facility] 10/13 14:50 Order name: PT-INR; Complete Time: 16:40 [facility] 10/13 14:50 Order name: Troponin (emerg Dept Use Only); Complete Time: 17:16 [facility] 10/13 14:50 Order name: Lipase; Complete Time: 17:16 [facility] 10/13 14:50 Order name: Type And Screen [facility] 10/13 14:50 Order name: AMMONIA; Complete Time: 17:16 [facility] 10/13 14:50 Order name: Urine Culture [facility] 10/13 14:50 Order name: Blood Culture Adult (2) [facility] 10/13 14:50 Order name: Procalcitonin; Complete Time: 17:16 [facility] 10/13 15:18 Order name: Urine Dipstick--Ancillary (enter results); Complete Time: 16:08 10/13 14:50 Order name: XRAY Chest (1 view); Complete Time: 16:57 [facility] 10/13 14:50 Order name: EKG; Complete Time: 14:53 [facility] 10/13 14:50 Order name: Cardiac monitoring; Complete Time: 15:56 [facility] 10/13 14:50 Order name: EKG - Nurse/Tech; Complete Time: 15:56 [facility] 10/13 14:50 Order name: IV Saline Lock; Complete Time: 15:56 [facility] 10/13 14:50 Order name: Labs collected and sent; Complete Time: 15:56 [facility] 10/13 14:50 Order name: O2 Per Protocol; Complete Time: 15:56 [facility] 10/13 17:12 Order name: CBC Smear Scan EDMS 10/13 17:18 Order name: Urine Osmolality [facility] 10/13 17:18 Order name: Urine Sodium Random [facility] 10/13 17:18 Order name: Osmolality, Serum [facility] 10/13 14:50 Order name: O2 Sat Monitoring; Complete Time: 15:56 [facility] 10/13 14:50 Order name: Urine Dipstick-Ancillary (obtain specimen); Complete Time: 15:56 [facility] 10/13 16:05 Order name: Labs - recollect needed: recollect type and screen, and ammonia; Complete bd Time: 17:00 10/13 17:23 Order name: Seizure Precautions; Complete Time: 17:44 [facility] Administered Medications: Discontinued: NS 0.9% 1000 ml IV at 125 ml/hr continuous 15:55 Drug: NS 0.9% 1000 ml Route: IV; Rate: 125 ml/hr; Site: left antecubital; 17:34 Follow up: IV Status: Order to discontinue infusion 17:44 Follow up: Response: No adverse reaction 16:57 Drug: Rocephin 1 grams Route: IV; Rate: per protocol; Site: left antecubital; 17:44 Follow up: Response: No adverse reaction; IV Status: Completed infusion 17:35 Drug: NS 0.9% 500 ml Route: IV; Rate: bolus; Site: left antecubital; 18:41 Follow up: Response: No adverse reaction; IV Status: Completed infusion 17:35 Drug: Thiamine 100 mg Route: IV; Rate: per protocol; Site: left antecubital; 18:41 Follow up: Response: No adverse reaction; IV Status: Completed infusion 18:41 Drug: NS 0.9% 1000 ml Route: IV; Rate: 75 ml/hr; Site: left antecubital; 19:32 Follow up: Response: No adverse reaction; IV Status: Infusion continued upon admission jd3 Disposition: 10/14/19 17:20 Hospitalization ordered by Amor Monk for Inpatient Admission. Preliminary diagnosis are Weakness, Alcoholic cirrhosis of liver, Ascites, Hypo-osmolality and hyponatremia, Pleural effusion in conditions classified elsewhere. - Bed requested for Telemetry/MedSurg (Inpatient). - Status is Inpatient Admission. wh - Condition is Fair. - Problem is new. - Symptoms are unchanged. Signatures: Dispatcher [employer] EDMS Krystle Addison Corey, MD MD cha Habalo, Winsy wh Davies, Jonathon RN jd3 Corrections: (The following items were deleted from the chart) 18:44 17:20 Hospitalization Ordered by Amor Monk MD for Inpatient Admission. Preliminary bd diagnosis is Weakness; Alcoholic cirrhosis of liver; Ascites; Hypo-osmolality and hyponatremia; Pleural effusion in conditions classified elsewhere. Bed requested for Telemetry/MedSurg (Inpatient). Status is Inpatient Admission. Condition is Fair. Problem is new. Symptoms are unchanged. [facility] 20:07 18:44 10/14/2019 17:20 Hospitalization Ordered by Amor Monk MD for Inpatient Admission. Preliminary diagnosis is Weakness; Alcoholic cirrhosis of liver; Ascites; Hypo-osmolality and hyponatremia; Pleural effusion in conditions classified elsewhere. Bed requested for Telemetry/MedSurg (Inpatient). Status is Inpatient Admission. Condition is Fair. Problem is new. Symptoms are unchanged. bd
[2019-10-14] MEDS ORDERED: THIAMINE 200 MG/2 ML INJ ONE (17:42)
[2019-10-14] MEDS ORDERED: NA CHLORIDE 0.9% 100 ML IV ONE (17:43)
[2019-10-14 20:26] LABS: Anisocytosis 1+; Blood Morphology Comment NOTED (NOT SEEN); Platelet Estimate ADEQ; Poikilocytosis 1+; Urine White Blood Cell Casts OK
[2019-10-14] MEDS: NA CHLORIDE 0.9% 1,000 ML IV SCH (21:01)
[2019-10-14 21:14] LABS: ALT/SGPT 27 U/L (12-78); AST/SGOT 43 U/L (15-37); Albumin 2.3 g/dL (3.4-5.0); Alkaline Phosphatase 125 U/L (45-117); BUN Blood Urea Nitrogen 14 mg/dL (7-18); Bicarbonate 23 mmol/L (21-32); Glucose Level 98 mg/dL (74-106); Potassium 4.5 mmol/L (3.5-5.1); Protein, Total 5.8 g/dL (6.4-8.2)
[2019-10-14 21:15] LABS: Sodium Level 119 mmol/L (136-145)
[2019-10-15 00:49] VITALS: BMI 17.8
[2019-10-15] MEDS: ONDANSETRON 4 MG/2 ML VIAL IV PRN (01:47)
[2019-10-15] MEDS: MAGNES/ALUMIN/SIMET 30ML UCUP PO PRN (03:31)
[2019-10-15] MEDS: TEMAZEPAM 15 MG CAP PO PRN ×2 (03:32→20:42)
--- NOTE | 2019-10-15 04:49 | HP ---
Date of Admission: 10/14/2019 Chief Complaint: Generalized weakness. Consultants: 1.Dr. Castro with GI. 2.Dr. Peck with Nephrology. History Of Present Illness: Patient is a 64-year-old male with past medical history of alcoholic vane er cirrhosis, comes in with increasing fatigue, fall the day prior to admission, as well as generaliz ed weakness and some mild ascites. Patient states that he has not been taking his diuretics because "they don't work." Patient is not following a fluid-restricted diet. Patient's symptoms are constan t, moderate, progressively worsening. Denies any fevers, chills, nausea, or vomiting. Does report s ignificant weakness. In the ER, his workup revealed a sodium of 118. His last sodium upon discharge in October 03 was 125. The patient's chest x-ray showed small bilateral pleural effusions with bib asilar atelectasis. Patient was then referred for admission. When seen in the ER, he was awake, tony rt, oriented x3, in some mild distress. Past Medical History: Alcoholic liver cirrhosis, fatty liver disease, chronic hyponatremia, prior al cohol abuse. Past Surgical History: Multiple paracentesis. Allergies: TO PENICILLIN, CAUSES SHORTNESS OF BREATH. Medications: As per medication reconciliation list. Social History: Patient denies any tobacco use. Not drinking alcohol currently. Lives at home. Family History: No premature coronary artery disease in the family. Review of Systems: Ten-point system reviewed, negative except as per HPI. Physical Examination: Vital Signs: Blood pressure 95/69, pulse 96, respirations 18, temperature 98.2, O2 of 98% on room ai r. BMI 18. General: Awake, alert, oriented x3, in some mild distress, ill-appearing, older than stated age male , frail, cachectic. HEENT: Normocephalic, atraumatic PERRLA, EOMI. Moist mucous membranes. Oropharynx is clear. Poor dentition. Conjunctivae are icteric. Neck: Supple. Patient has jugular venous distention. CV: S1, S2. Regular rate and rhythm. Peripheral pulses are weak. Respiratory: Diminished breath sounds at the bases. Some dullness to percussion. No wheezing or st ridor. No use of accessory muscles. Gastrointestinal: Abdomen is distended. Has mild to moderate ascites. Positive bowel sounds. No g uarding or rigidity. Extremities: No clubbing or cyanosis. Patient has peripheral edema. No calf tenderness. Neuro: Cranial nerves 2 through 12 intact grossly. No focal neurological deficit. Speech is normal . Laboratory Data: WBC 7.7, H and H 12.3 and 34, platelets 244, neutrophils 72%. INR 1.27. Sodium 11 8, potassium 5.1, chloride 83, CO2 of 25, BUN 14, creatinine 0.75, glucose 103, calcium 9, magnesium 2.1, total bilirubin 8.3, direct bilirubin 3.6, AST 53, ALT 33, alkaline phosphatase 149, ammonia 30. Troponin less than 0.02. Albumin 2.7. Procalcitonin less than 0.05. Serum osmolality pending. U A shows positive nitrite and negative leukocyte esterase. Assessment: 64-year-old male with: 1.Acute hyponatremia. We will check serum osmolality. We will start on gentle IV fluid hydration d ue to patient's ascites and pleural effusion. The patient was seen by Nephrology. 2.Acute ascites with anasarca secondary to alcoholic liver cirrhosis. We will likely need to schedu le paracentesis if not improving with diuretics. 3.Acute hypotension. 4.Hyperbilirubinemia. 5.Coagulopathy secondary to liver disease. 6.Deep venous thrombosis prophylaxis, SCDs. Plan: Admit patient to Med-Surg, place as inpatient. We will repeat sodium level in 6 hours. Consu lt GI. Length of stay greater than 2 midnights. VONDA Voice ID: [id number]
[2019-10-15 06:03] LABS: Absolute Lymphocytes (CBC) 0.6 K/uL (0.7-4.9); Basophils % 0.2 % (0-1.3); Hematocrit 28.7 % (39.6-49.0); MPV 6.6 fL (7.6-11.3)
[2019-10-15 06:22] LABS: ALT/SGPT 26 U/L (12-78); AST/SGOT 41 U/L (15-37); Albumin 2.2 g/dL (3.4-5.0); Alkaline Phosphatase 116 U/L (45-117); BUN Blood Urea Nitrogen 13 mg/dL (7-18); Bicarbonate 23 mmol/L (21-32); Glucose Level 105 mg/dL (74-106); Potassium 4.5 mmol/L (3.5-5.1); Protein, Total 5.5 g/dL (6.4-8.2); Sodium Level 120 mmol/L (136-145)
[2019-10-15 06:23] LABS: Bilirubin Total 6.2 mg/dL (0.2-1.0)
[2019-10-15] MEDS: CEFTRIAXONE/SWI 1gm 1 GM/10 ML SYR IV SCH (08:18)
[2019-10-15] MEDS: SODIUM CHLORIDE 1 GM TAB PO SCH ×2 (08:19→16:08)
[2019-10-15] MEDS: NA CHLORIDE 0.9% 1,000 ML IV SCH ×2 (08:20→09:41)
--- NOTE | 2019-10-15 08:53 | EKG ---
Test Date: 2019-10-14 Test Time: 14:57:20 Hog Killer: FLOR MEASUREMENT RESULTS: Intervals: Rate: 93 CT: 136 QRSD: 72 QT: 358 QTc: 445 [place]: P: 80 CT: 136 QRS: 25 T: 78 INTERPRETIVE STATEMENTS: Normal sinus rhythm Low voltage QRS Cannot rule out Anterior infarct, age undetermined Abnormal ECG Compared to ECG 08/22/2019 09:18:50 Low QRS voltage now present Accelerated junctional rhythm no longer present Myocardial infarct finding still present Electronically Signed On 10-15-19 08:52:49 CDT by Franki Lara
[2019-10-15] MEDS ORDERED: FUROSEMIDE 40 MG TABLET PO SCH (09:00)
[2019-10-15] MEDS ORDERED: CEFTRIAXONE 1 GM/NS 50 ML 1 GM/50 ML BAG IV SCH (09:00)
[2019-10-15] MEDS ORDERED: SPIRONOLACTONE 25 MG TABLET PO SCH (12:47)
[2019-10-15 15:40] LABS: Urine Appearance CLEAR; Urine Blood NEGATIVE (NEG); Urine Color ORANGE; Urine Glucose NEGATIVE (NEG); Urine Protein NEGATIVE (NEG); Urine Specific Gravity 1.015 (1.005-1.030); Urine pH 5.5 (5.0-7.0)
[2019-10-15 15:57] LABS: Urine Microscopic Reflex ORDER UMIC
[2019-10-15] MEDS: FUROSEMIDE 40 MG/4 ML VIAL IV SCH (16:08)
[2019-10-15 16:21] LABS: Urine Bacteria <20 /HPF (NONE SEEN); Urine Culture Reflex Order NOT NEEDED; Urine RBC <5 /HPF (NONE SEEN)
[2019-10-15 17:01] LABS: Urine Bilirubin 1+ (NEG)
--- NOTE | 2019-10-15 17:01 | PN ---
Date of Progress Note: 10/15/2019 Subjective: Patient seen and examined. Chart reviewed and case discussed with RN. Patient doing so mewhat better. Sodium levels improving. No acute events overnight. Medications: List reviewed. Physical Examination: Vital Signs: Temperature 97.8, heart rate 101, blood pressure 109/69, respirations 17, O2 94% on moises m air. General: Awake, alert, oriented x3. Not in any acute distress. Ill-appearing male, frail, cachecti c. BMI 17. Appears older than stated age. Laboratory Data: Sodium 120, potassium 4.5, chloride 89, CO2 of 23, BUN 13, creatinine 0.52, glucose 105, calcium 8.1, total bilirubin 6.2, AST 41, ALT 26, albumin 2.2. WBC 9, H and H 10.4 and 28.7, p latelets 204, neutrophils 79.7%. Blood cultures pending. Urine cultures growing mixed jesús. Assessment And Plan: 64-year-old male with: 1.Acute hyponatremia with hyperosmolality. We will continue with IV fluids. Appreciate Nephrology input. 2.Acute ascites with anasarca secondary to alcoholic liver cirrhosis. Continue diuretics. We will resume Aldactone as potassium is improved. 3.Acute hypotension, stable. 4.Hyperbilirubinemia secondary to liver disease. 5.Coagulopathy secondary to liver disease. 6.Alcoholic liver disease. Appreciate Dr. Castro's input. 7.Deep venous thrombosis prophylaxis with sequential compression devices. Plan: Likely discharge in the next 24-48 hours depending on clinical response. Overall poor prognos is. SA/MODL Voice ID: [id number] Report ID: [id number]
--- NOTE | 2019-10-16 03:01 | CON ---
Date of Consultation: 10/15/2019 Reason For Consultation: Hyponatremia. History Of Present Illness: This is a 64-year-old gentleman with significant past medical history of cirrhosis secondary to alcoholic liver disease, hypertension, patient came to the hospital complaining of nausea, vomiting, abdominal distention. Primary workup found to have hyponatremia, sodium down to 120. For that reason, we have been consulted. Patient denied taking any nonsteroidal. No recent change in medication. Patient recently admitted to the hospital with ascites treated. Patient was started on IV hydration. Past Medical History: 1. Hypertension. 2. Cirrhosis. Allergies: PENICILLIN. Home Medications: Lactulose. Current Medications In The Hospital: Include IV fluid, Zofran, temazepam. Social History: Denies smoking. Ex alcohol. Denies drug abuse. Review of Systems: Head and Neck: No red eyes. No ear pain. GI: Has nausea and vomiting. : No polyuria, no dysuria, no hematuria. Dairy Nutritionist: Not applicable. Respiratory: No shortness of breath. Cardiovascular: No chest pain. Endocrine: No polydipsia. Skin: No rashes. Neuro: Has fatigue and neuropathy. Musculoskeletal: Generalized fatigue. Physical Examination: General: When I saw the patient he was lying in bed. Vital Signs: Blood pressure 102/64, pulse of 97, afebrile. Chest: Clear to auscultation. Heart: S1, S2. Regular. Systolic murmur. Abdomen: Soft, ascites. Extremities: No edema. Neurologic: Alert and oriented. Nonfocal. Laboratory Data: Sodium 120, potassium 4.5, bicarb 23, BUN 13, creatinine 0.5, calcium 8.1, bilirubin 6.2, albumin 2.2. Urinalysis: Specific gravity of 1.015 , urine sodium 13, urine potassium of 38. +1 protein. Assessment And Plan: 1. Hyponatremia secondary to cirrhosis plus depletional secondary to the gastrointestinal loss. I will discontinue IV fluid, start the patient on Lasix and we will place the patient on fluid restriction. We will follow up labs tomorrow. 2. Given the presence of the gastroenteritis, continue symptomatic treatment. 3. Hypertension, controlled optimal continue current treatment. 4. Cirrhosis with ascites, as by primary. CHANDRAKANT/CARA Voice ID: [id number] Report ID: [id number] MTDD
[2019-10-16 06:14] LABS: Basophils % 0.6 % (0-1.3); Hematocrit 26.6 % (39.6-49.0); Lymphocytes % 9.1 % (15.3-44.8); MPV 6.4 fL (7.6-11.3); RBC Red Blood Cell Count 2.35 M/uL (4.33-5.43)
[2019-10-16 06:59] LABS: ALT/SGPT 27 U/L (12-78); AST/SGOT 39 U/L (15-37); Albumin 2.2 g/dL (3.4-5.0); Alkaline Phosphatase 110 U/L (45-117); BUN Blood Urea Nitrogen 20 mg/dL (7-18); Bicarbonate 21 mmol/L (21-32); Glucose Level 94 mg/dL (74-106); Phosphorus 2.6 mg/dL (2.5-4.9); Potassium 4.5 mmol/L (3.5-5.1); Protein, Total 5.5 g/dL (6.4-8.2); Sodium Level 120 mmol/L (136-145); Uric Acid 3.5 mg/dL (3.5-7.2)
[2019-10-16 07:02] LABS: Bilirubin Total 5.5 mg/dL (0.2-1.0)
[2019-10-16 07:21] LABS: Platelet Estimate ADEQ; Urine White Blood Cell Casts OK
[2019-10-16 07:22] LABS: Anisocytosis 2+; Blood Morphology Comment NOTED (NOT SEEN); Macrocytosis 2+
[2019-10-16] MEDS: LACTULOSE 20 GM/30 ML UCUP PO SCH (08:31)
[2019-10-16] MEDS: CEFTRIAXONE/SWI 1gm 1 GM/10 ML SYR IV SCH (08:31)
[2019-10-16] MEDS: SODIUM CHLORIDE 1 GM TAB PO SCH ×3 (08:33→20:18)
[2019-10-16] MEDS: FUROSEMIDE 40 MG/4 ML VIAL IV SCH ×2 (08:33→16:25)
--- NOTE | 2019-10-16 13:19 | P.PN ---
Subjective Date of Service: 10/16/19 Patient at the moment is very concerned about his abdominal distention and pain. He also reports nausea and dry heaving. He has no fever. Physical Examination - Vital Signs Temperature: 98.2 F Blood Pressure: 139/72 Pulse: 102 Respirations: 18 Pulse Ox (%): 95 - Physical Exam General: In no apparent distress, Cachectic HEENT: Mucous membr. moist/pink, Scleral icterus Neck: Supple, JVD not distended Respiratory: Clear to auscultation bilaterally, Normal air movement Cardiovascular: No edema, Regular rate/rhythm, Normal S1 S2, Other (Tachycardia) Gastrointestinal: Normal bowel sounds, Distended, Ascites, Tenderness (Diffuse tenderness to palpation) Musculoskeletal: No swelling, No erythema Integumentary: No rashes Neurological: Normal speech, Normal strength at 5/5 x4 extr - Studies Microbiology Data (last 24 hrs): 10/14/19 15:10 Clean Catch Urine [place] Count - Final BETWEEN 10,000 & 100,000 CFU/ML 10/14/19 15:10 Clean Catch Urine - Final MIXED BRUNILDA. Assessment And Plan - Current Problems (Diagnosis) (1) Alcoholic liver disease Current Visit: No Status: Acute (2) Ascites due to chronic alcoholic hepatitis Current Visit: No Status: Acute (3) Hyponatremia Current Visit: No Status: Acute - Plan I am recommending paracenteses to reduce the need for Lasix therapy given hyponatremia. Continue sodium tablets. Fluid restriction Start Aldactone. Prophylactic IV Rocephin. Nephrology is following. Monitor renal panel. Check ammonia level.
--- NOTE | 2019-10-16 13:47 | PN ---
Date of Progress Note: 10/16/2019 Subjective: The patient was admitted with ascites and hyponatremia. Patient was yesterday started o n salt tablet with a slight improved in the sodium level. Physical Examination: Vital Signs: Blood pressure 109/65, pulse of 100. Chest: Clear to auscultation. Heart: S1, S2. Abdomen: Soft. Ascites. Extremities: No edema. Neuro: Alert. Mild tremor. Laboratory Data: WBC 11.1, H and H 9.7/26.6, platelets 236. Sodium 120, potassium 4.5, bicarb 21, B UN 20, creatinine 0.6, calcium 7.8. Current Medications: The patient is on include, salt tablet 1 g t.i.d., Lasix 40 mg, temazepam, lact ulose, Zofran. Assessment And Plan: 1.Hyponatremia secondary to end-stage liver disease. I am going to go ahead and increase on salt ta blet. We will continue Lasix. We will monitor. 2.Cirrhosis, advanced, end-stage with ascites. We will follow up with primary. CHANDRAKANT/CARA Voice ID: [id number] Report ID: [id number]
[2019-10-16] MEDS: ENSURE ENLIVE 237 ML CAN PO SCH (20:18)
[2019-10-16] MEDS: TEMAZEPAM 15 MG CAP PO PRN (20:23)
[2019-10-16] MEDS: ONDANSETRON 4 MG/2 ML VIAL IV PRN (22:29)
[2019-10-16] MEDS: MAGNES/ALUMIN/SIMET 30ML UCUP PO PRN (23:43)
[2019-10-17 05:55] LABS: ALT/SGPT 24 U/L (12-78); AST/SGOT 33 U/L (15-37); Albumin 2.2 g/dL (3.4-5.0); Alkaline Phosphatase 106 U/L (45-117); BUN Blood Urea Nitrogen 31 mg/dL (7-18); Bicarbonate 27 mmol/L (21-32); Bilirubin Total 4.2 mg/dL (0.2-1.0); Glucose Level 103 mg/dL (74-106); Potassium 3.9 mmol/L (3.5-5.1); Protein, Total 5.4 g/dL (6.4-8.2); Sodium Level 123 mmol/L (136-145)
[2019-10-17 06:14] LABS: Absolute Lymphocytes (CBC) 1.3 K/uL (0.7-4.9); Basophils % 0.8 % (0-1.3); Lymphocytes % 10.8 % (15.3-44.8); MPV 6.9 fL (7.6-11.3)
[2019-10-17] MEDS: CEFTRIAXONE/SWI 1gm 1 GM/10 ML SYR IV SCH (08:22)
[2019-10-17] MEDS: LACTULOSE 20 GM/30 ML UCUP PO SCH (08:23)
[2019-10-17] MEDS: ENSURE ENLIVE 237 ML CAN PO SCH ×2 (08:23→20:47)
[2019-10-17] MEDS: SODIUM CHLORIDE 1 GM TAB PO SCH ×3 (08:24→20:46)
[2019-10-17] MEDS ORDERED: SPIRONOLACTONE 25 MG TABLET PO SCH (09:00)
[2019-10-17] MEDS ORDERED: ALBUMIN HUMAN 25% 100 ML IV ONE ×2 (12:28→20:15)
--- NOTE | 2019-10-17 12:39 | RAD REPORT ---
EXAM DESCRIPTION: US - Paracentesis Proc Guidance - 10/17/2019 9:15 am CLINICAL HISTORY: Liver disease with ascites FINDINGS: The risks, benefits and alternatives to the procedure were explained to the patient and in formed consent obtained. The skin and subcutaneous tissues were anesthetized with Lidocaine. Under sonographic guidance an 8 F rench catheter was placed into the right lower quadrant. 7 liters of yellow fluid removed and sent to the lab. The patient experienced no immediate complication. IMPRESSION: Paracentesis
--- NOTE | 2019-10-17 15:30 | P.PN ---
Subjective Date of Service: 10/17/19 Status post paracenteses and 7 liters of ascitic fluid drained. Blood pressure has been borderline low. Patient collapsed to the floor during an attempt to get up and use the bathroom. He sustained a skin tear to the right upper extremity. Physical Examination - Vital Signs Temperature: 97.6 F Blood Pressure: 90/60 Pulse: 105 Respirations: 15 Pulse Ox (%): 97 - Physical Exam General: Cachectic, Other (Awake,) HEENT: Mucous membr. moist/pink, Scleral icterus Neck: Supple, JVD not distended Respiratory: Clear to auscultation bilaterally, Normal air movement Cardiovascular: No edema, Normal pulses, Other (Tachycardia) Gastrointestinal: Normal bowel sounds, Soft and benign, Non-distended, Tenderness (Diffuse) Musculoskeletal: No swelling, Other (Skin tear-right upper extremity) Integumentary: Other Assessment And Plan - Current Problems (Diagnosis) (1) Alcoholic liver disease Current Visit: No Status: Acute (2) Ascites due to chronic alcoholic hepatitis Current Visit: No Status: Acute (3) Hyponatremia Current Visit: No Status: Acute - Plan SP paracentesis. Will order albumin infusion Continue sodium tablets. Fluid restriction Aldactone discontinued Prophylactic IV Rocephin. Nephrology is following. Wound care. Monitor renal panel. Discussed hospice placement with patient and family. They are receptive to hospice but want to consider long-term placement first.
[2019-10-17 15:44] LABS: Appearance SLT. TURBID (CLEAR); Body Fluid Source PERITONEAL; Body Fluid WBC 65 /mm^3; Color of fluid Yellow (COLORLESS)
--- NOTE | 2019-10-17 16:06 | PN ---
Date of Progress Note: 10/17/2019 Subjective: The patient was admitted with hyponatremia, ascites. Patient underwent paracentesis tosabine ay. Managed to remove 7 L. Physical Examination: Vital Signs: Blood pressure 93/64, pulse of 108, afebrile. Chest: Clear to auscultation. Heart: S1, S2. Systolic murmur. Abdomen: Ascites. Extremities: No edema. Laboratory Data: H and H 8.8/25. Sodium 123, potassium 3.9, bicarb 27, BUN 31, creatinine 0.8, calc ium 8, phosphorus of 3. Current Medications: The patient is on include: 1.Ceftriaxone. 2.Spironolactone. 3.Temazepam. 4.Lactulose. 5.Salt tablet. Assessment And Plan: 1.Hyponatremia secondary to the cirrhosis. I am going to resume Lasix. Hold the spironolactone for now, and we will monitor. 2.Hypokalemia, resolved. 3.Cirrhosis, ascites, as by primary. CHANDRAKANT/CARA Voice ID: [id number] Report ID: [id number]
[2019-10-17] MEDS: FUROSEMIDE 40 MG TABLET PO SCH (16:14)
[2019-10-17] MEDS: TEMAZEPAM 15 MG CAP PO PRN (20:46)
[2019-10-18] MEDS: ONDANSETRON 4 MG/2 ML VIAL IV PRN (03:31)
[2019-10-18] MEDS: SODIUM CHLORIDE 1 GM TAB PO SCH ×3 (08:27→20:40)
[2019-10-18] MEDS: ENSURE ENLIVE 237 ML CAN PO SCH ×2 (08:27→20:41)
[2019-10-18] MEDS: LACTULOSE 20 GM/30 ML UCUP PO SCH (08:27)
[2019-10-18] MEDS: CEFTRIAXONE/SWI 1gm 1 GM/10 ML SYR IV SCH (08:27)
[2019-10-18] MEDS: FUROSEMIDE 40 MG TABLET PO SCH (09:00)
[2019-10-18] MEDS ORDERED: ALBUMIN HUMAN 25% 100 ML IV ONE (09:03)
[2019-10-18] MEDS: NA CHLORIDE 0.9% 1,000 ML IV SCH (10:14)
[2019-10-18 11:46] LABS: Absolute Lymphocytes (CBC) 0.9 K/uL (0.7-4.9); Basophils % 0.5 % (0-1.3); Lymphocytes % 6.3 % (15.3-44.8); MPV 7.3 fL (7.6-11.3); RBC Red Blood Cell Count 1.46 M/uL (4.33-5.43)
[2019-10-18 12:07] LABS: Albumin 2.5 g/dL (3.4-5.0); Phosphorus 2.1 mg/dL (2.5-4.9); Potassium 4.3 mmol/L (3.5-5.1)
--- NOTE | 2019-10-18 12:12 | P.PN ---
Subjective Date of Service: 10/18/19 Subjective Pt with cirrhosis , found to have hyponatremia and ascitis S/P paracentecis of 7liters Today BP low , with orthostatic changes will dc lasix , and add IVF low HB , plan for PRBC pt with over alll poor prognosis , will recommend comfort care Physical exam general: cachexic , alert Neck; Supple, No elevated JVD hear: RRR, normal S1,2 no murmur or rub Chest: CTAB, no rlaes or wheezes Abdomen: distended, soft, NT Extremities No edema or ulcer A/P Hyponatemia due to cirrhosis will dc lasix and add NS low BP due to cirrhosis +/- hypovolemic shock will start IVF and add midodrine Cirrhosis poor prognosis would benefit from comfort care Physical Examination - Vital Signs Temperature: 97.9 F Blood Pressure: 87/55 Pulse: 107 Respirations: 15 Pulse Ox (%): 94
--- NOTE | 2019-10-18 12:33 | EKG ---
Test Date: 2019-10-17 Test Time: 12:27:36 Bench Worker Binding: FLOR MEASUREMENT RESULTS: Intervals: Rate: 111 OK: 130 QRSD: 74 QT: 344 QTc: 467 [place]den: P: 79 OK: 130 QRS: 44 T: 86 INTERPRETIVE STATEMENTS: Sinus tachycardia Possible Left atrial enlargement Nonspecific T wave abnormality Abnormal ECG Compared to ECG 10/14/2019 14:57:20 T-wave abnormality now present Sinus rhythm no longer present Myocardial infarct finding no longer present Electronically Signed On 10-18-19 12:30:57 CDT by Franki Lara
[2019-10-18] MEDS: MIDODRINE HCL 5 MG TABLET PO SCH ×2 (13:20→20:40)
[2019-10-18] MEDS ORDERED: NA CHLORIDE 0.9% 250 ML ONE ×2 (13:52→17:40)
--- NOTE | 2019-10-18 14:17 | P.PN ---
Subjective Date of Service: 10/18/19 Status post paracenteses 7 liters of ascitic fluid drained yesterday. Blood pressure has been low, in the 80s. His hemoglobin has also dropped to 5.9. Family reports poor oral intake. Physical Examination - Vital Signs Temperature: 97.9 F Blood Pressure: 87/55 Pulse: 107 Respirations: 15 Pulse Ox (%): 94 - Physical Exam General: Oriented x3, Cachectic, Other (Sick appearing) HEENT: Scleral icterus Neck: Supple, JVD not distended Respiratory: Clear to auscultation bilaterally, Normal air movement Cardiovascular: No edema, Other (Tachycardia) Gastrointestinal: Normal bowel sounds, Distended, Ascites, Tenderness (Diffuse) Integumentary: Other (Areas of bruising on bilateral upper extremities) Neurological: Other (Non-focal) Assessment And Plan - Current Problems (Diagnosis) (1) Alcoholic liver disease Current Visit: No Status: Acute (2) Ascites due to chronic alcoholic hepatitis Current Visit: No Status: Acute (3) Hyponatremia Current Visit: No Status: Acute (4) Acute anemia Current Visit: Yes Status: Acute - Plan S/P paracentesis. Status post multiple albumin infusion Continue sodium tablets. Lasix discontinued. Patient started on IV normal saline given poor oral intake. Aldactone discontinued Continue Prophylactic IV Rocephin. Nephrology is following. Wound care. Transfuse 2 units PRBC. Check stool for occult blood pending hospice evaluation. Patient clinical condition is declining. Very poor prognosis. Recommending hospice. Patient and family are receptive of hospice.
[2019-10-18 23:59] LABS: Hematocrit 29.3 % (39.6-49.0)
[2019-10-19] MEDS: NA CHLORIDE 0.9% 1,000 ML IV SCH (07:00)
[2019-10-19 07:26] LABS: Absolute Lymphocytes (CBC) 1.2 K/uL (0.7-4.9); Basophils % 0.4 % (0-1.3); Hematocrit 25.5 % (39.6-49.0); Lymphocytes % 7.9 % (15.3-44.8); MPV 7.6 fL (7.6-11.3); RBC Red Blood Cell Count 2.43 M/uL (4.33-5.43)
[2019-10-19 07:38] LABS: Albumin 2.4 g/dL (3.4-5.0); BUN Blood Urea Nitrogen 66 mg/dL (7-18); Bicarbonate 24 mmol/L (21-32); Glucose Level 109 mg/dL (74-106); Phosphorus 2.4 mg/dL (2.5-4.9); Potassium 4.8 mmol/L (3.5-5.1); Sodium Level 123 mmol/L (136-145)
[2019-10-19] MEDS: LACTULOSE 20 GM/30 ML UCUP PO SCH (08:29)
[2019-10-19] MEDS: MIDODRINE HCL 5 MG TABLET PO SCH ×3 (08:29→21:59)
[2019-10-19] MEDS: SODIUM CHLORIDE 1 GM TAB PO SCH ×3 (08:29→21:58)
[2019-10-19] MEDS: CEFTRIAXONE/SWI 1gm 1 GM/10 ML SYR IV SCH (08:30)
[2019-10-19] MEDS: ENSURE ENLIVE 237 ML CAN PO SCH ×2 (08:32→21:59)
[2019-10-19 08:47] LABS: Anisocytosis 1+; Blood Morphology Comment NOTED (NOT SEEN); Macrocytosis 1+; Platelet Estimate ADEQ; Polychromasia 1+; Toxic Granulation 1+; Urine White Blood Cell Casts OK
--- NOTE | 2019-10-19 14:08 | P.PN ---
Subjective Date of Service: 10/19/19 Patient's clinical condition is declining. Prognosis is poor. Patient and family have accepted hospice place and are looking at respite care starting Monday. Status post 2 units PRBC transfusion yesterday. Hemoglobin is up to 8.9. No physical evidence of GI bleed. No melena or hematemesis. Physical Examination - Vital Signs Temperature: 97.8 F Blood Pressure: 115/69 Pulse: 107 Respirations: 16 Pulse Ox (%): 94 - Physical Exam General: Cachectic, Other (Awake) HEENT: Mucous membr. moist/pink Neck: JVD not distended Respiratory: Clear to auscultation bilaterally, Normal air movement Cardiovascular: No edema, Other (Tachycardic) Gastrointestinal: Hypoactive, Distended Integumentary: Erythema, Other (Multiple ecchymoses on bilateral upper extremities.) Assessment And Plan - Current Problems (Diagnosis) (1) Alcoholic liver disease Current Visit: No Status: Acute (2) Ascites due to chronic alcoholic hepatitis Current Visit: No Status: Acute (3) Hyponatremia Current Visit: No Status: Acute (4) Acute anemia Current Visit: Yes Status: Acute - Plan S/P paracentesis. Status post multiple albumin infusion. Hospice placement on Monday Continue sodium tablets. Lasix discontinued. Continue IV hydration and antibiotic.
--- NOTE | 2019-10-19 15:59 | P.PN ---
Subjective Date of Service: 10/19/19 Subjective Pt with cirrhosis , found to have hyponatremia and ascitis S/P paracentecis of 7liters Today pt recived 2 PRBC now MAKENZIE family agreed for comfort care Physical exam general: cachexic , alert Neck; Supple, No elevated JVD hear: RRR, normal S1,2 no murmur or rub Chest: CTAB, no rlaes or wheezes Abdomen: distended, soft, NT Extremities No edema or ulcer A/P MAKENZIE likely due to ischemic ATN and HRS I family agreed for comfort care cont IVF renal dose meds Hyponatemia due to cirrhosis cont NS and salt tablets low BP due to cirrhosis +/- hypovolemic shock will start IVF and add midodrine Cirrhosis poor prognosis would benefit from comfort care Physical Examination - Vital Signs Temperature: 97.8 F Blood Pressure: 115/69 Pulse: 107 Respirations: 16 Pulse Ox (%): 94
[2019-10-20] MEDS ORDERED: FENTANYL CITR 100 MCG/2 ML IV PRN (02:10)
[2019-10-20 04:46] VITALS: O2SAT 100
[2019-10-20] MEDS ORDERED: ALBUMIN HUMAN 25% 100 ML IV ONE (05:01)
[2019-10-20 07:04] LABS: Albumin 2.2 g/dL (3.4-5.0); Phosphorus 2.9 mg/dL (2.5-4.9); Potassium 4.6 mmol/L (3.5-5.1)
[2019-10-20] MEDS: LACTULOSE 20 GM/30 ML UCUP PO SCH (08:13)
[2019-10-20] MEDS: MIDODRINE HCL 5 MG TABLET PO SCH ×2 (08:13→13:17)
[2019-10-20] MEDS: SODIUM CHLORIDE 1 GM TAB PO SCH ×2 (08:13→13:17)
[2019-10-20] MEDS: CEFTRIAXONE/SWI 1gm 1 GM/10 ML SYR IV SCH (08:13)
[2019-10-20] MEDS: ENSURE ENLIVE 237 ML CAN PO SCH (08:14)
--- NOTE | 2019-10-20 12:08 | P.PN ---
Subjective Date of Service: 10/20/19 Subjective Pt with cirrhosis , found to have hyponatremia and ascitis S/P paracentecis of 7liters Today feels tires, family agreed for hospice care no more blood work or aggressive measurement will sign off call us prn Physical exam general: cachexic , alert Neck; Supple, No elevated JVD hear: RRR, normal S1,2 no murmur or rub Chest: CTAB, no rlaes or wheezes Abdomen: distended, soft, NT Extremities No edema or ulcer A/P MAKENZIE likely due to ischemic ATN and HRS I family agreed for comfort care cont IVF renal dose meds Hyponatemia due to cirrhosis cont NS and salt tablets low BP due to cirrhosis +/- hypovolemic shock will start IVF and add midodrine Cirrhosis poor prognosis family agreed for hospice care no more blood work or aggressive measurement Physical Examination - Vital Signs Temperature: 98.3 F Blood Pressure: 93/51 Pulse: 106 Respirations: 14 Pulse Ox (%): 100 - Studies Microbiology Data (last 24 hrs): 10/14/19 16:10 Blood - Blood Aerobic Blood Culture - Final No growth in 5 days. 10/14/19 16:10 Blood - Blood Anaerobic Blood Culture - Final No growth in 5 days. 10/14/19 15:40 Blood - Blood Aerobic Blood Culture - Final No growth in 5 days. 10/14/19 15:40 Blood - Blood Anaerobic Blood Culture - Final No growth in 5 days.
--- NOTE | 2019-10-20 12:52 | P.PN ---
Subjective Date of Service: 10/20/19 Patient's clinical condition continued to decline. He is currently lethargic. Patient and family have accepted hospice place and are looking at respite care starting Monday. Physical Examination - Vital Signs Temperature: 98.3 F Blood Pressure: 93/51 Pulse: 106 Respirations: 14 Pulse Ox (%): 100 - Physical Exam General: Other (Lethargic) Neck: Supple Respiratory: Clear to auscultation bilaterally, Normal air movement Cardiovascular: No edema Gastrointestinal: Distended, Ascites Integumentary: Erythema, Other (Ecchymosis-bilateral upper extremities.) - Studies Microbiology Data (last 24 hrs): 10/14/19 16:10 Blood - Blood Aerobic Blood Culture - Final No growth in 5 days. 10/14/19 16:10 Blood - Blood Anaerobic Blood Culture - Final No growth in 5 days. 10/14/19 15:40 Blood - Blood Aerobic Blood Culture - Final No growth in 5 days. 10/14/19 15:40 Blood - Blood Anaerobic Blood Culture - Final No growth in 5 days. Assessment And Plan - Current Problems (Diagnosis) (1) Alcoholic liver disease Current Visit: No Status: Acute (2) Ascites due to chronic alcoholic hepatitis Current Visit: No Status: Acute (3) Hyponatremia Current Visit: No Status: Acute (4) Acute anemia Current Visit: Yes Status: Acute (5) Metabolic encephalopathy Current Visit: Yes Status: Acute - Plan Patient and family have accepted comfort measures. No escalation of treatment. No aggressive measures. Hospice placement on Monday Continue sodium tablets. Continue IV hydration and antibiotic.
[2019-10-20 16:14] VITALS: BP 90/60; TEMP 97.1
--- NOTE | 2019-10-20 16:34 | P.PN ---
Date of Service: 10/20/19 I was informed by patient's family to initiate comfort measures. Patient with bradycardia down to 20. He is has agonal breathing. Comfort measures initiated. IV morphine for pain and dyspnea. IV ativan prn for agitation.
[2019-10-20] MEDS ORDERED: MORPHINE 4 MG/ML SYR IV PRN (16:36)
[2019-10-20] MEDS ORDERED: MORPHINE 4 MG/ML SYR IV ONE (17:00)
--- NOTE | 2019-10-20 17:21 | P.PN ---
No cardiopulmonary activity Pupils fixed and dilated. Corneal reflex Patient . Date and time of expiration: 10/20/2019 1639 hours.
--- NOTE | 2019-10-20 19:49 | P.DS ---
Admission Date: 10/14/19 Discharge Date: 10/20/19 Disposition: Discharge Condition: Reason for Admission: Hyponatremia, abdominal distention Consultations: Nephrology. Procedures: None. - Problems (1) Alcoholic liver disease Status: Acute (2) Ascites due to chronic alcoholic hepatitis Status: Acute (3) Hyponatremia Status: Acute (4) Acute anemia Status: Acute (5) Metabolic encephalopathy Status: Acute Brief History of Present Illness: 64-year-old gentleman with a history of alcoholic liver cirrhosis, history of ascites status post periodic paracentesis present to the ED with a complaint of generalized weakness, increased abdominal distention and shortness of breath. Patient is reported to have been noncompliance with his medications. Chest x- ray done in the ED demonstrated bilateral pleural effusion. His sodium level was down to 118. The patient was admitted for further management. Hospital Course: Patient was admitted to the medical floor, nephrology was consulted, patient was placed on fluid restriction and sodium tablet to treat the hyponatremia. He was also hydrated with normal saline. He underwent paracenteses, given multiple albumin infusions for hypotension. He was also given blood transfusion for a drop in his hemoglobin. Patient had no melena or hematochezia or hematemesis. His clinical condition continued to decline and became altered. Patient and family accepted hospice placement. His condition rapidly declined and comfort measures initiated. Patient later on 2019 at 1639 hours. Vital Signs/Physical Exam: Temp Pulse Resp BP Pulse Ox 97.1 F 100 H 18 90/60 100 10/20/19 16:00 10/20/19 16:00 10/20/19 16:00 10/20/19 16:00 10/20/19 16:00 Laboratory Data at Discharge: WBC 15.0 K/uL (4.3-10.9) H 10/19/19 06:15 Hgb 8.9 g/dL (13.6-17.9) L 10/19/19 06:15 Hct 25.5 % (39.6-49.0) L 10/19/19 06:15 Plt Count 240 K/uL (152-406) 10/19/19 06:15 PT 14.9 SECONDS (9.5-12.5) H 10/14/19 15:40 INR 1.27 10/14/19 15:40 Sodium 121 mmol/L (136-145) L 10/20/19 06:24 Potassium 4.6 mmol/L (3.5-5.1) 10/20/19 06:24 BUN 82 mg/dL (7-18) H 10/20/19 06:24 Creatinine 1.04 mg/dL (0.55-1.3) 10/20/19 06:24 Glucose 102 mg/dL (74-106) 10/20/19 06:24 Uric Acid 3.5 mg/dL (3.5-7.2) D 10/16/19 05:39 Phosphorus 2.9 mg/dL (2.5-4.9) 10/20/19 06:24 Magnesium 2.1 mg/dL (1.8-2.4) 10/14/19 15:40 Total Bilirubin 4.2 mg/dL (0.2-1.0) H 10/17/19 05:19 AST 33 U/L (15-37) 10/17/19 05:19 ALT 24 U/L (12-78) 10/17/19 05:19 Alkaline Phosphatase 106 U/L (45-117) 10/17/19 05:19 Lipase 246 U/L (73-393) 10/14/19 15:40 Home Medications: Lactulose 20 gm PO DAILY 10/15/19
== END 2019-10-20 16:39 | disposition expired | DRG 432 ==
LOC: ER 14:23 → ERHOLD 17:32 → 4TH 20:02
PROVIDERS: ADMIT Family Medicine; ATTEND Internal Medicine
PROC: 0W9G3ZZ Drainage of Peritoneal Cavity, Percutaneous Approach (ICD-10-PCS; principal; 2019-10-17)
PROC: 30233N1 Transfusion of Nonautologous Red Blood Cells into Peripheral Vein, Percutaneous Approach (ICD-10-PCS; 2019-10-18)
PROC: 30233N1 Transfusion of Nonautologous Red Blood Cells into Peripheral Vein, Percutaneous Approach (ICD-10-PCS; 2019-10-18)
DX: K70.31 Alcoholic cirrhosis of liver with ascites (principal); N17.0 Acute kidney failure with tubular necrosis; G93.41 Metabolic encephalopathy; E87.1 Hypo-osmolality and hyponatremia; D68.4 Acquired coagulation factor deficiency; J90 Pleural effusion, not elsewhere classified; R64 Cachexia; Z68.1 Body mass index [BMI] 19.9 or less, adult; R57.1 Hypovolemic shock; I95.9 Hypotension, unspecified; E80.6 Other disorders of bilirubin metabolism; K70.0 Alcoholic fatty liver; Z66 Do not resuscitate; I10 Essential (primary) hypertension; K52.9 Noninfective gastroenteritis and colitis, unspecified; K70.11 Alcoholic hepatitis with ascites; E87.6 Hypokalemia; D64.9 Anemia, unspecified; Z91.14 Patient's other noncompliance with medication regimen
CPT/HCPCS: 36415; 36430; 49083; 71045; 80048; 80053; 80069; 80076; 81003; 81015; 82140; 82274; 83690; 83735; 83880; 83930; 83935; 84132; 84145; 84300; 84443; 84484; 84550; 85014; 85018; 85025; 85610; 86850; 86900; 86901; 87040; 87070; 87086; 87088; 89050; 93005; 94760; 96361; 96365; 96368; 97116; 97161; 97530; 99285; J0696; J1940; J2405; J3010; J3411; J7030; P9016; P9047